=== PATIENT | male | born 1995 | race Caucasian/White ===

== ENCOUNTER 2024-01-04 09:07 | Emergency (ER) | payer MEDICAID, SELFPAY ==
--- NOTE | ~2024-01-04 | XR_ITS ---
EXAMINATION: XR CHEST CLINICAL INFORMATION: Chest pain COMPARISON: 06/13/2018 TECHNIQUE: Frontal view of the chest was obtained. FINDINGS: No significant abnormality is noted involving the heart, lungs, mediastinum, bony thorax or soft tissues. XR/XR chest 1V IMPRESSION: Unremarkable examination.
[2024-01-04 09:21] VITALS: BP 145/89; PULSE 63; RESP 18; TEMP 36.9; O2SAT 100; BMI 29.7
--- NOTE | 2024-01-04 09:26 | ECG_ITS ---
Test Reason : CHEST PAIN Blood Pressure : / mmHG Vent. Rate : 059 BPM Atrial Rate : 059 BPM P-R Int : 138 ms QRS Dur : 088 ms QT Int : 366 ms P-R-T Axes : 073 013 056 degrees QTc Int : 362 ms Sinus bradycardia Otherwise normal ECG No previous ECGs available Referred By: Generic ED Physician Electronically Signed By:LASHA ABEBE MD
[2024-01-04 09:44] LABS: MANUAL DIFF FLAG NO
[2024-01-04 09:47] LABS: Basophils Percent Auto 0.2 % (0-2); Eosinophils Percent Auto 0.3 % (0-4); Hematocrit 40.1 % (42.0-52.0); Hemoglobin 13.7 g/dl (14.0-18.0); Imm Gran Abs Auto 0.06 X10*3/uL (0.00-0.03); Imm Gran Pct Auto 0.4 % (0.0-0.4); Lymphocytes Absolute Auto 1.3 X10*3/uL (1.2-4.9); Lymphocytes Percent Auto 9.2 % (20-40); Mean Corpuscular HGB Conc 34.2 g/dl (31.0-36.0); Mean Corpuscular Hemoglobin 28.6 pg (27.0-33.0); Mean Corpuscular Volume 83.7 fL (80.0-98.0); Mean Platelet Volume 9.5 fL (9.4-12.4); Monocytes Absolute Auto 0.5 X10*3/uL (0.1-1.2); Monocytes Percent Auto 3.5 % (2-11); Neutrophils Absolute Auto 12.4 x10*3/uL (2.0-8.3); Neutrophils Percent Auto 86.4 % (45-73); Platelet Count 338 X10*3/uL (160-400); Red Blood Count 4.79 X10*6/uL (4.60-5.80); White Blood Count 14.4 X10*3/uL (4.8-10.8)
--- NOTE | 2024-01-04 09:48 | ED.GENADULT ---
HPI - General Adult General Chief complaint: General Medical Stated complaint: Carbon Monoxide poisoning? Vomiting dizzy Time Seen by Provider: 01/04/24 09:40 Source: patient Mode of arrival: ambulatory Limitations: no limitations History of Present Illness HPI narrative: 28 year old male with no significant past medical history presents to the emergency department, with his family, for complaints of n/v/d and fatigue for the past several days. He reports that on Wednesday he changed out the exhaust in his car in his concern that he may have carbon monoxide poisoning. He reports he was seen for similar symptoms N/V/D, dizziness, and weakness at [facility] and was given antiemetics, IV fluids and tested negative for COVID/flu/RSV. He reports he was given a prescription for Reglan but then he has had continued symptoms. 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 He also reports intermittent shortness of breath on a sharp pain in the left chest. He denies any fevers, chills, hematemesis, melena, BRBPR Patient reports he is a daily marijuana smoker and states that he smoked twice yesterday. Pertinent positives and negatives discussed in HPI Related Data Previous Rx's ?Medication ?Instructions ?Recorded ondansetron 4 mg disintegrating 4 mg PO Q8H #20 tabs 01/04/24 tablet Allergies Allergy/AdvReac Type Severity Reaction Status Date / Time No Known Allergies Allergy Verified 01/04/24 09:25 Review of Systems Review of Systems: Yes all other systems are reviewed and are negative [facility] Social History Social History Advance Directives: No Advance Directives Information Provided: Yes Physical Exam ED Vital Signs: Vital Signs - 24 hr 01/04/24 09:21 Temperature 98.4 F Pulse Rate 63 Respiratory Rate 18 Blood Pressure 145/89 H Pulse Oximetry 100 Oxygen Delivery Method Room Air BMI result Body Mass Index 29.7 Nursing notes and vital signs reviewed. GENERAL APPEARANCE: A&0 x 4, generally well appearing, no acute distress HENMT: Normal to inspection, atraumatic, face symmetrical. Normal external ears, nose, and oropharynx clear. EYE: PERRLA, EOM intact, structures appear normal NECK: Supple without lymphadenopathy. No stiffness or restricted ROM. CHEST: Normal to inspection HEART: Normal rate and regular rhythm, normal S1/S2, no M/R/G LUNGS: LS CTA, moving air well. Able to speak in complete sentences. No crackles, wheezes, or rhonchi auscultated ABDOMEN: Soft, nontender, nondistended. Normal bowel sounds noted BACK: No CVAT, no obvious deformity EXTREMITIES: Moving all extremities without difficulty. No cyanosis, clubbing, or edema. Normal capillary refill. NEUROLOGICAL: Alert and oriented, moving all 4 extremities with equal strength. CN not formally tested but appearing grossly intact. Observed to ambulate with normal gait. Cognition normal SKIN: Warm and dry without any lesions, rash, or visible sores PSYCH: Cooperative, normal affect, normal thought process Medications Administered Generic Name Dose Route Start Last Admin Trade Name Freq PRN Reason Stop Dose Admin Sodium Chloride 1,000 mls @ 999 mls/hr 01/04/24 10:00 01/04/24 10:00 Ns IV 01/04/24 11:00 999 mls/hr .Q1H1M AMRY Administration Discontinued Medications Generic Name Dose Route Start Last Admin Trade Name Freq PRN Reason Stop Dose Admin Ondansetron HCl 4 mg 01/04/24 10:42 01/04/24 10:50 Ondansetron Hcl 4 Mg/2 Ml Vial IVPUSH 01/04/24 10:43 4 mg ONCE ONE Administration Potassium Chloride 40 meq 01/04/24 10:42 01/04/24 10:51 Potassium Chloride Er 20 Meq Tab.Er.Prt PO 01/04/24 10:43 40 meq ONCE ONE Administration Medical Decision Making Medical Decision Making MDM Narrative: Old records reviewed for previous imaging, lab studies, ECGs, and notes. Patient was assessed the emergency department with no acute distress or toxicity noted. EKG unremarkable for STEMI and chest x-ray showing no evidence of acute findings, per my interpretation. Carbon monoxide level 1.9, consistent with a chronic smoker. Remaining blood work showing hypokalemia consistent complaints of vomiting and diarrhea, unspecified anemia, and leukocytosis with WBCs 14.4 and nasal serology negative for COVID, flu, and RSV. Patient's symptoms are consistent with acute viral syndrome. Potassium replacement and IV fluid bolus given here in the emergency department for management of symptoms and patient educated to increase fluid intake to prevent dehydration. Zofran sent to patient's preferred pharmacy for further management nausea and vomiting. Patient reports that he is lactose intolerant, however; that he has been drinking milk daily. Patient educated that having dairy while being sensitive to lactose may cause increased GI symptoms. Patient educated to have his car assessed for carbon monoxide leakage from the exhaust. Old records reviewed for previous imaging, lab studies, ECGs, and notes. Patient was assessed the emergency department with no acute distress or toxicity noted. Differential Diagnosis Differential Diagnoses: The differential diagnosis associated with the presentation includes But not limited to carbon monoxide poisoning, asthma, ACS, PE, pneumonia, gastroenteritis, acute viral syndrome, GI bleed, sepsis, malignancy Lab Data MDM Lab Attestation statement: I reviewed the patient's lab results. 01/04/24 09:40 01/04/24 09:40 Labs: Lab Results 01/04/24 01/04/24 01/04/24 Range/Units 09:37 09:40 09:42 WBC 14.4 H (4.8-10.8) X10*3/uL RBC 4.79 (4.60-5.80) X10*6/uL Hgb 13.7 L (14.0-18.0) g/dl Hct 40.1 L (42.0-52.0) % MCV 83.7 (80.0-98.0) fL MCH 28.6 (27.0-33.0) pg MCHC 34.2 (31.0-36.0) g/dl RDW 13.0 (11.0-16.0) % Plt Count 338 (160-400) X10*3/uL MPV 9.5 (9.4-12.4) fL Immature Gran % (Auto) 0.4 (0.0-0.4) % Neut % (Auto) 86.4 H (45-73) % Lymph % (Auto) 9.2 L (20-40) % [place] % (Auto) 3.5 (2-11) % Eos % (Auto) 0.3 (0-4) % Baso % (Auto) 0.2 (0-2) % Lymph # (Auto) 1.3 (1.2-4.9) X10*3/uL [place] # (Auto) 0.5 (0.1-1.2) X10*3/uL Eos # (Auto) 0.0 (0.0-0.4) X10*3/uL Baso # (Auto) 0.0 (0.0-0.2) X10*3/uL Abs Immat Gran (auto) 0.06 H (0.00-0.03) X10*3/uL Absolute Neuts (auto) 12.4 H (2.0-8.3) x10*3/uL Absolute Nucleated RBC 0.000 (0.0-0.012) X10*3/uL Nucleated RBC % (auto) 0.0 (0.0-0.2) /100WBC Carboxyhemoglobin % Cancelled 1.9 Sodium 141 (135-145) mmol/L Potassium 3.2 L (3.3-5.1) mmol/L Chloride 106 (96-108) mmol/L Carbon Dioxide 23 (22-29) mmol/L Anion Gap 15 (12-20) BUN 9 (9-16) mg/dL Creatinine 0.81 (0.5-1.4) mg/dL Estim Creat Clear Calc 150.2 Estimated GFR > 60 Random Glucose 116 H (60-115) mg/dL Calcium 9.2 (8.4-10.2) mg/dL Total Bilirubin 0.6 (0.0-1.0) mg/dL AST 16 (5-37) U/L ALT 13 (0-40) U/L Alkaline Phosphatase 75 (39-117) U/L Total Protein 7.6 (6.5-8.0) g/dL Albumin 4.3 (3.5-5.0) g/dL Influenza Type A (PCR) (Negative) Influenza Type B (PCR) (Negative) RSV RNA Qual (PCR) (Negative) SARS-CoV-2 RNA (RT-PCR) (Negative) 01/04/24 Range/Units 09:58 WBC (4.8-10.8) X10*3/uL RBC (4.60-5.80) X10*6/uL Hgb (14.0-18.0) g/dl Hct (42.0-52.0) % MCV (80.0-98.0) fL MCH (27.0-33.0) pg MCHC (31.0-36.0) g/dl RDW (11.0-16.0) % Plt Count (160-400) X10*3/uL MPV (9.4-12.4) fL Immature Gran % (Auto) (0.0-0.4) % Neut % (Auto) (45-73) % Lymph % (Auto) (20-40) % [place] % (Auto) (2-11) % Eos % (Auto) (0-4) % Baso % (Auto) (0-2) % Lymph # (Auto) (1.2-4.9) X10*3/uL [place] # (Auto) (0.1-1.2) X10*3/uL Eos # (Auto) (0.0-0.4) X10*3/uL Baso # (Auto) (0.0-0.2) X10*3/uL Abs Immat Gran (auto) (0.00-0.03) X10*3/uL Absolute Neuts (auto) (2.0-8.3) x10*3/uL Absolute Nucleated RBC (0.0-0.012) X10*3/uL Nucleated RBC % (auto) (0.0-0.2) /100WBC Carboxyhemoglobin % Sodium (135-145) mmol/L Potassium (3.3-5.1) mmol/L Chloride (96-108) mmol/L Carbon Dioxide (22-29) mmol/L Anion Gap (12-20) BUN (9-16) mg/dL Creatinine (0.5-1.4) mg/dL Estim Creat Clear Calc Estimated GFR Random Glucose (60-115) mg/dL Calcium (8.4-10.2) mg/dL Total Bilirubin (0.0-1.0) mg/dL AST (5-37) U/L ALT (0-40) U/L Alkaline Phosphatase (39-117) U/L Total Protein (6.5-8.0) g/dL Albumin (3.5-5.0) g/dL Influenza Type A (PCR) NEGATIVE (Negative) Influenza Type B (PCR) NEGATIVE (Negative) RSV RNA Qual (PCR) NEGATIVE (Negative) SARS-CoV-2 RNA (RT-PCR) NEGATIVE (Negative) Independent Interpretation I performed an independent interpretation of an: EKG and Plain X-Ray Interpretation: I have independently interpreted the patient's chest x-ray is negative for acute findings. I have also independently interpreted the patient's EKG showing sinus bradycardia with no signs of acute ischemia or ectopy. Independent Historian Clinical information obtained from an independent historian. History obtained from or confirmed by: Other (Family) External Record Review External record reviewed: Outpatient record and Prior outpatient labs Prescription Management I considered prescription management with: Antibiotic Were considered but no bacterial infection was identified. Discharge Plan Discharge Clinical Impression: Marijuana smoker, Acute viral syndrome, Acute hypokalemia, Anemia, unspecified Patient Disposition: Home, Self-Care Instructions: How to Stop Smoking (ED), Hypokalemia (ED), Viral Syndrome (ED), Anemia (ED) Additional Instructions: Your seen in the emergency department for concerns of carbon monoxide poisoning. Your carbon monixide level was consistent with chronic marijuana smoker and showed no evidence of CO poisoning. Your symptoms are consistent with an acute viral syndrome. It is recommended that you increase your fluid intake to prevent dehydration and nausea medicine was sent to preferred pharmacy for further management your symptoms. Is also recommended that you have your car assessed for carbon monoxide leakage from the exhaust. You are safe for discharge at this time with plan for management of fever or discomfort with [id number] Tylenol and/or NSAID such as ibuprofen or naproxen with dosing as per packaging. Please return to the emergency department with new, worsening, or concerning emergent symptoms. Recommended to follow-up with your primary care provider in 24-48 hours for further treatment and management. Thank you for choosing [facility]. Prescriptions: New ondansetron 4 mg tablet,disintegrating 4 mg PO Q8H Qty: 20 0RF [place] [facility] [place]] [facility] [place] [facility] [place] Group] [facility] [place] [facility] [place] Group] Stand Alone Forms: Work/School Release Print Language: Upper Sorbian
[2024-01-04 09:49] LABS: Carbon Monoxide Refer to POC result
[2024-01-04 09:50] LABS: Carbon Monoxide POC 1.9 %
[2024-01-04] MEDS: 0.9 % Sodium Chloride 1,000 ML 999 ML IV (10:00)
[2024-01-04 10:03] LABS: Alanine Aminotransferase 13 U/L (0-40); Albumin Level 4.3 g/dL (3.5-5.0); Alkaline Phosphatase 75 U/L (39-117); Anion Gap 15 (12-20); Aspartate Amino Transferase 16 U/L (5-37); Bilirubin Total 0.6 mg/dL (0.0-1.0); Blood Urea Nitrogen 9 mg/dL (9-16); Calcium 9.2 mg/dL (8.4-10.2); Carbon Dioxide 23 mmol/L (22-29); Chloride 106 mmol/L (96-108); Creatinine Clr Calc Pharmacy 150.2; Estimated Glomerular Filt Rate > 60; Glucose Random 116 mg/dL (60-115); Potassium 3.2 mmol/L (3.3-5.1); Sodium 141 mmol/L (135-145); Total Protein 7.6 g/dL (6.5-8.0)
[2024-01-04 10:46] LABS: Influenza A PCR NEGATIVE (Negative); Influenza B PCR NEGATIVE (Negative); Resp Syncy Virus RNA Qual PCR NEGATIVE (Negative); SARS COV2 PCR INHOUSE NEGATIVE (Negative)
[2024-01-04] MEDS: ondansetron HCL 4 MG/2 ML VIAL IVPUSH (10:50)
[2024-01-04] MEDS: Potassium Chloride ER 20 MEQ TAB.ER.PRT 40 MEQ PO (10:51)
[2024-01-04 11:30] VITALS: BP 142/77; PULSE 57; RESP 16; TEMP 37.1; O2SAT 99
== END 2024-01-04 11:31 | disposition home or self-care (01) ==
PROVIDERS: Nurse Practitioner Family; Emergency Provider Emergency Medicine
DX: F12.90 Cannabis use, unspecified, uncomplicated (principal); B34.9 Viral infection, unspecified; E87.6 Hypokalemia; D64.9 Anemia, unspecified; Z11.52 Encounter for screening for COVID-19; Z20.828 Contact with and (suspected) exposure to other viral communicable diseases
CPT/HCPCS: 0241U; 36415; 71045; 80053; 82375; 85025; 93005; 96361; 96374; 99283; 99284; J2405

== ENCOUNTER → 2024-01-04 09:26 | Outpatient (BNV) | payer MEDICAID, SELFPAY | PROVIDERS: Emergency Provider Emergency Medicine; Visit Provider Internal Medicine Cardiovascular Disease | DX: R00.1 Bradycardia, unspecified (principal) | CPT/HCPCS: 93010 ==

== ENCOUNTER 2024-06-09 08:50 | Outpatient (REF) | payer MEDICAID, SELFPAY ==
[2024-06-09 12:16] LABS: Alanine Aminotransferase 17 U/L (0-40); Albumin Level 4.6 g/dL (3.5-5.0); Alkaline Phosphatase 72 U/L (39-117); Anion Gap 12 (12-20); Aspartate Amino Transferase 20 U/L (5-37); Blood Urea Nitrogen 11 mg/dL (9-16); Carbon Dioxide 25 mmol/L (22-29); Chloride 107 mmol/L (96-108); Cholesterol 147 mg/dL (<200); Estimated Glomerular Filt Rate > 60; Glucose Random 106 mg/dL (60-115); HDL Cholesterol 37 mg/dL (>40); LDL Cholesterol Calculated 84 mg/dL (<100); Potassium 3.8 mmol/L (3.3-5.1); Sodium 140 mmol/L (135-145); Total Protein 8.2 g/dL (6.5-8.0); Triglycerides 133 mg/dL (<150)
[2024-06-09 12:26] LABS: Estimated Average Glucose 100 mg/dL; Hemoglobin A1c % 5.1 % (<6.0)
[2024-06-09 13:12] LABS: CT PCR NOT DETECTED (Not Detect.); NG PCR NOT DETECTED (Not Detect.)
[2024-06-10 04:46] LABS: HIV AB/AG Nonreactive (Nonreactive); HIV Num 1 0.07 S/CO (0.00-0.99); ~HepC Num1 0.15 S/CO (0.00-0.79); ~Hepatitis C Antibody Nonreactive (Nonreactive)
[2024-06-12 11:39] LABS: RPR Rapid Plasma Reagin NON-REACTIVE (NON-REACTIVE)
== END 2024-06-09 08:51 | disposition home or self-care (01) ==
LOC: HO.HHCL 08:50
PROVIDERS: Visit Provider Nurse Practitioner Family
DX: Z00.00 Encounter for general adult medical examination without abnormal findings (principal); R79.89 Other specified abnormal findings of blood chemistry
CPT/HCPCS: 36415; 80053; 80061; 83036; 86592; 86803; 87389; 87491; 87591

== ENCOUNTER 2024-11-14 10:42 | Outpatient (AMB) | payer MEDICAID, SELFPAY ==
--- NOTE | 2024-11-14 10:43 | MHC.OFFVIS ---
Intake Visit Reasons: pilonodial cyst Intake Note: Patient referred by Linnette Oneill STOGY ROLLER for reocurring pilonidal cyst. First noticed last summer. Prior txt include abx's. Patient c/o: oozing, tender to touch. Assessment Nurse Practitioner Required: No Accompanied by: Self / Same As Patient Allergies No Known Allergies Allergy (Verified 11/14/24 10:46) HPI Comments Details: Patient presents with 1. 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 Right upper back soft tissue mass. 1. Pilonidal cyst has been very symptomatic and the patient was required I and D twice by the ER. He would like to have this excised. 2. Patient was a right upper back soft tissue mass which has markedly increased in size and also become more symptomatic he would like to have this removed as well. Chart was reviewed and patient evaluated [facility] Medical History (Updated 11/14/24 @ 10:47 by DARNELL Oliveira) Appendix abscess Social History (Updated 11/14/24 @ 10:47 by DARNELL Oliveira) Alcohol intake: never Patient Tobacco Use Status: Never used Tobacco Physical Exam Chest Other: Chest breath sounds bilaterally, HS 1 in 2 GI Other: Abdomen is soft, benign Back/Spine/Pelvis Other: Right upper back demonstrates a 8 5 cm mass consistent with a large sebaceous cyst (less likely lipoma). Stewart cleft area demonstrates significant scarring and sinuses and induration consistent with prior episodes of symptomatic infected pilonidal cyst disease. Assessment & Plan Assessment & Plan (1) Pilonidal cyst of stewart cleft: Code(s): L05.91 - Pilonidal cyst without abscess Category: Surgical (2) Sebaceous cyst: Code(s): L72.3 - Sebaceous cyst Category: Surgical Plan Risks, benefits, alternatives of 1. Pilonidal cyst excision 2. Right upper back cyst excision were reviewed with the patient and included but not limited to bleeding, infection, recurrence, numbness, pain, scarring, wound dehiscence, seroma formation the patient wished to proceed. I explained to him that he needs to be sedentary post pilonidal cyst excision in particular to avoid any significant wound issues. He understands. Arrangements were made for this on a day which is convenient for him. All questions answered. Coding Level of Care Code New Pt Level 5 (53352) Diagnoses Pilonidal cyst of cleft L05.91 Sebaceous cyst L72.3
--- OUTSIDE RECORDS SUMMARY | 2024-11-14 13:03 | XMS_ITS | Clinical Summary ---
Author Organization [facility] ity Address [address] [place] [address] Care Team Providers Care Keno Dealer Name Role Phone Unavailable Primary Care Provider Unavailabl e Social History Tobacco Use Types Packs/Day Years Used Date Smoking Tobacco: Never Assessed Sex and Gender Information Value Date Recorded Sex Assigned at Not on file Legal Sex Male 9:03 AM EST Gender Identity Not on file Sexual Orientation Not on file Plan of Treatment Health Maintenance Due Date Last Done Comments DTaP,Tdap,and Td Vaccines (1 - Tdap) 2013 Hepatitis B Vaccines (1 of 3 - 19+ 3-dose series) 2013 Depression Screening 10/12/2023 HIV Screening 10/12/2023 Hepatitis C Screening 10/12/2023 Social Influencers of Health Screening 10/12/2023 COVID-19 Vaccine (1 - 2023-2 5 season) 2024 Influenza Vaccine (#1) 2024 HIB Vaccines Aged Out No longer eligi ble based on patient's age to complete this topic HPV Vaccines Aged Out No longer eligi ble based on patient's age to complete this topic Hepatitis A Vaccines Aged Out No long er eligible based on patient's age to complete this topic IPV Vaccines Aged Out No longer eligi ble based on patient's age to complete this topic MMR Vaccines Aged Out No longer eligi ble based on patient's age to complete this topic Meningococcal ACWY Vaccine Aged Out N o longer eligible based on patient's age to complete this topic Meningococcal B Vacine Aged Out No lo nger eligible based on patient's age to complete this topic Pneumococcal Vaccine: Pediat rics (0 to 5 Years) and At-Risk Patients (6 to 64 Years) Aged Out No longer eligible b ased on patient's age to complete this topic RSV Immunization Patients Un carol 20 months Aged Out No longer eligible b ased on patient's age to complete this topic Varicella Vaccines Aged Out No longer eligible based on patient's age to complete this topic
--- OUTSIDE RECORDS SUMMARY | 2024-11-14 13:03 | XMS_ITS | Encounter Summary ---
Author Organization [employer] Address [address] [place] [address] Care Team Providers Care Issuing Operator Name Role Phone Linnette Oneill POULTRY HUSBANDRY TEACHER Primary Care Provider [phone] Reason for Visit * Reason Onset Date Comments Nurse Triage 11/08/2024 Encounter Details Date Type Department Care Team ([facility] st Contact Info) Description 11/08/2024 Telephone [facility] [address], [place] [phone] Linnette Oneill NP [address] [place] [address] Nurse Triage Social History Tobacco Use Types Packs/Day Years Used Date Smoking Tobacco: Never Smokeless Tobacco: Never Alcohol Use Standard Drinks/Week Comments Never 0 (1 standard drink = 0.6 oz pur e alcohol) Alcohol Answer Date Recorded Frequency of Alcohol Consumption Not on file 05/29/2024 Average Number of Drinks Not on file 024 Frequency of Binge Drinking Not on file 05/14 Score 0 05/29/2024 Depression Answer Date Recorded Patient Health Questionnaire-9 Score 4 05/29/2024 Patient Health Questionnaire-9 Score 4 05/29/2024 Last PHQ-9: Questionnaire Data Not on file 0 05/29/2024 Housing Stability Answer Date Recorded What is your housing situation today? I have carlos trejo 05/29/[address] you li ve. Do you have problems with any of the following? None of the above 05/29/2024 Food Insecurity Answer Date Recorded Within the past 12 months, y ou worried that your food would run out before you got money to buy more: Never True 05/29/2024 Within the past 12 months,th e food you bought just didn't last and you didn't have enough money to get more: Never True Transportation Answer Date Recorded In the past 12 months, has l ack of transportation kept you from medical appts, meetings, work or from getting things needed for daily living? No 05/29/2024 Utilities Answer Date Recorded In the past 12 months, has t he electric, gas, oil or water company threatened to shut off services in your home? No 05/29/2024 Depression Answer Date Recorded Patient Health Questionnaire-2 Score 0 05/29/2024 Internet Access Answer Date Recorded Internet Access Q1 Yes 05/29/2024 Internet Access Q2 Not on file 05/29/2024 Sex and Gender Information Value Date Recorded Sex Assigned at Male 07/13/2022 10:14 AM EDT Legal Sex Male 10:14 AM EDT Gender Identity Male 07/13/2022 10:14 AM EDT Sexual Orientation Straight 09/04/2024 4: 47 PM EST documented as of this encounter Miscellaneous Notes * Telephone Encounter - Meg Sharma RN - 11/08/2024 1:27 PM EST Triage call Pt reports a recurring pilonidal cyst near coccyx area which needs to be surgically removed. Pt has had this drained before at [facility] [place] and has been told to contact PCP for referral for surgical removal. Pt reports the cyst is size of a golf ball, hard to the touch and painful. Last time this was drained was before May of 2024. ASK apt with [facility] at 1145am 11/10/24. Pt agrees with disposition. Insurance is verified as active prior to booking. Protocol Used: Skin Lump or Localized Swelling (Adult) Protocol-Based Disposition: See in Office or Video Visit within 3 Days Video visit not offered Positive Triage Questions: * Small swelling or lump present > 1 week * Patient wants to be seen * All higher-acuity triage questions were negative Care Advice Discussed: * Reasons To Call Back - Fever occurs - Spreading redness occurs - Swelling becomes painful - Swelling lasts over 1 week - You become worse * Telephone Encounter - Lisa Cordova - 11/08/2024 12:58 PM EST Symptom: Back Pain - Not From Injury Outcome: Talk to a nurse or provider within 15 minutes Reason: Can't walk (unless normally can't walk) Pt states hurts when he sits down, can't walk well, can't lie down and can't bend over. The caller accepted this outcome. [phone] documented in this encounter Plan of Treatment Not on file documented as of this encounter Visit Diagnoses Not on filedocumented in this encounter Additional Health Concerns Assessment Noted Time PHQ-9 Depression Total Score: 4 05/29/20 24 10:05 AM EDT documented as of this encounter Care Teams Issuing Operator Relationship Specialty Start Date End Date Linnette Oneill NP [address] [place] [id number] PCP - General Family Medicine 05/29/24 documented as of this encounter
--- OUTSIDE RECORDS SUMMARY | 2024-11-14 13:03 | XMS_ITS | Encounter Summary ---
Author Organization [facility] Address [address] [place] [address] Care Team Providers Care Supervisor Salvage Name Role Phone Linnette Oneill AMMON Primary Care Provider [phone] Encounter Details Date Type Department Care Team (Late st Contact Info) Description 10/24/2024 3:15 PM EST Office Visit [facility] [address] [place], [place] [id number] Navid, Lucia, OD [address] [place] [address] Regular astigmatism of both eyes (Primary Dx) Social History Tobacco Use Types Packs/Day Years [...] your housing situation today? I have carlos maya 05/29/[address] you li [...] PM EST documented as of this encounter Progress Notes * Lucia Shoemaker OD - 10/24/2024 3:15 PM EST MH glasses were dispensed. documented in this encounter Plan of Treatment Not on file documented as of this encounter Visit Diagnoses Diagnosis Regular astigmatism of both eyes- Primary documented in this encounter Additional Health Concerns Assessment Noted Time PHQ-9 Depression Total Score: 4 05/29/20 24 10:05 AM EDT documented as of this encounter Care Teams Supervisor Salvage Relationship Specialty Start Date End Date Linnette Oneill NP [address] [place] [id number] PCP - General Family Medicine 05/29/24 documented as of this encounter
--- OUTSIDE RECORDS SUMMARY | 2024-11-14 13:03 | XMS_ITS | Clinical Summary ---
Author Organization [employer] [facility] Address [address] [facility] [address] [facility] [address] [place] [address] Care Team Providers Care Retail Custodial Associate Name Role Phone Linnette Oneill PROJECT BUYER Primary Care Provider [phone] Allergies No known active allergies Medications No known medications Active Problems Problem Noted Date Diagnosed Date Elevated liver function tests 05/29/2024 Assessment & Plan (05/29/2024 5:30 PM EDT): Elevated liver function in setting of acute GI illness, repeat lab Pt reports imaging was completed and echogenic liver Healthcare maintenance 05/29/2024 Assessment & Plan (05/29/2024 5:30 PM EDT): Anticipatory guidance reviewed, labs as ordered below Pilonidal cyst 05/29/2024 Assessment & Plan (05/29/2024 5:30 PM EDT): Reports has become infected twice, interested in removal, referral to surgery Encounters Date Type Department Care Team Description 11/10/2024 Telephone [facility] MEDICINE [address] [place] [address] Linnette Oneill NP Care Coordination 11/08/2024 Telephone [facility] MEDICINE [address] [place] [address] Linnette Oneill NP Nurse Triage 10/24/2024 3:15 PM EST Office Visit [facility] OPTOMETRY [address] [place] [address] NavidLucia vega, OD Regular astigmatism of both eyes (Primary Dx) 09/11/2024 9:45 AM EST Office Visit [facility] OPTOMETRY [address] [place] [address] Sanjuana Alvarez, OD Regular astigmatism of both eyes (Primary Dx); Refractive amblyopia of right eye 09/11/2024 Travel from Last 3 Months Immunizations Name Administration Dates Next Due DTaP 07/23/1998, 6,1994,07/24,1994 Hep A, ped/adol, 2 dose 2011 Hep B, Adolescent or Pediatric 1994,1993,1994 Hib (HbOC) 09/17/1995, 5,1994,06/02 IPV 09/17/1995, 5,1994,06/02 Influenza injectable quadriv alent IIV4 with preservative 08/08/2018 MMR 07/23/1998,02/26/1995 Meningococcal MCV4P ACYW-135 12/31/2005 Td (adult), 5 Lf tetanus tox oid, preservative free, adsorbed 02/18/2013 Tdap 12/10/2022,12/31/2005 Varicella 2011 Family History Medical History Relation Name Comments Glaucoma Brother Relation Name Status Comments Brother Social History Tobacco Use Types Packs/Day Years Used Date Smoking Tobacco: Never Smokeless Tobacco: Never Tobacco Cessation:Counseling Given: Not Answered Alcohol Use Standard Drinks/Week Comments Never 0 [...] Orientation Straight 09/04/2024 4: 47 PM EST Last Filed Vital Signs Vital Sign Reading Time Taken Comments Blood Pressure 114/72 05/29/2024 10:02 AM EDT Pulse 75 05/29/2024 10:02 AM EDT Temperature 36.9 ??C (98.4 ??F) 05/29/2024 10:02 AM E DT Respiratory Rate 16 05/29/2024 10:02 AM EDT Oxygen Saturation - - Inhaled Oxygen Concentration - - Weight 94 kg (207 lb 3.2 oz) 05/29/2024 10:02 AM EDT Height 173.8 cm (5' 8.43 ) 05/29/2024 10:02 AM E DT Body Mass Index 31.11 05/29/2024 10:02 AM EDT Plan of Treatment Health Maintenance Due Date Last Done Comments Family Planning (PISQ) 2009 Hepatitis A Vaccines (2 of 2 - Risk 2-dose series) 08/27/2011 2011 COVID-19 Vaccine ( season) 2024 Influenza Vaccine (#1) 2024 08/08/2018 Alcohol/Substance Use Screening 05/29/2025 05/29/2024 Depression Screening 05/29/2025 05/29/2024, 05/29/20 24 SDOH Screening 05/29/2025 05/29/2024 Tobacco Screening 09/11/2025 09/11/2024 DTaP/Tdap/Td Vaccines (9 - Td or Tdap) 12/10/2032 12/10/2022, 02/18/2013, 12/31/2005, Additional history exists Zoster Vaccines (1 of 2) 02/26/2044 RSV Patients and Patients Aged 60 years or older (1 - 1-dose 75+ series) 2069 Hepatitis B Vaccines Completed 1994, 1994, 1994 HIB Vaccines Completed 09/17/1995, 09/13, 1994, Additional history exists IPV Vaccines Completed 09/17/1995, 09/13, 1994, Additional history exists Meningococcal Vaccine Aged Out 12/31/2005 No sandra terence eligible based on patient's age to complete this topic HIV Screening Completed 06/09/2024 Hepatitis C Screening Completed 06/09/2024 HPV Vaccines Aged Out No longer eligi ble based on patient's age to complete this topic Pneumococcal Vaccine: Pediatrics (0 to 5 Years) and At-Risk Patients (6 to 49) Years) Aged Out No longer eligible based on patient's age to complete this topic RSV under 20 months Aged Out No longe r eligible based on patient's age to complete this topic Rotavirus Vaccines Aged Out No longer eligible based on patient's age to complete this topic Procedures Procedure Name Priority Date/Time Associated Diagnosis Comments HEPATITIS C AB W/REFL TO HCV RNA, QN, PCR Routine 06/09/2024 8:56 AM EDT Healthcare maintenance HIV 1/2 ANTIGEN/ANTIBODY, FOURTH GENERATION W/RFL Routine 06/09/2024 8:56 AM EDT Healthcare maintenance from Last 3 Months or Most Recently Relevant to Health Maintenance Results * Hepatitis C Antibody with Reflex to HCV, RNA, Quantitative, Real-Time PCR (06/09/2024 8:56 AM EDT) Hepatitis C Antibody Nonreactive Nonreactive [facility] Comment:Antibodies to HCV no t detected; does not exclude early acuteHCV infection. Blood Venous blood specimen / Unknown 06/09/2024 8:56 AM EDT 06/09/2024 11:22 AM EDT us Linnette Oneill NP LAB BLOOD ORDERABLES Final Resul t Performing Organization Address [facility] Co de Phone Number [facility] [address] [place] [address] [phone] * HIV-1/2 Antigen and Antibodies, Fourth Generation, with Reflexes (06/09/2024 8:56 AM EDT) [facility] HIV AB/AG Nonreactive Nonreactive [facility] Comment:HIV-1 p24 Ag and/or HIV-1/HIV-2 Ab not detected.A test result that is nonreactive does not exclude thepossibility of exposure to or infection with HIV-1 and/orHIV-2. Nonreactive results in this assay for individualswith prior exposure to HIV-1 and/or HIV-2 may be due toantigen and antibody levels that are below the limit ofdetection of this assay.The [employer] HIV Ag/Ab Combo assay result andsupplemental assay results should be interpreted inconjunction with the patient's clinical presentation,history and other laboratory results. If the results areinconsistent with clinical evidence, additional testing issuggested to confirm the result. Blood Venous blood specimen / Unknown 06/09/2024 8:56 AM EDT 06/09/2024 11:22 AM EDT us Linnette Oneill NP LAB BLOOD ORDERABLES Final Resul t Performing Organization Address City/[facility]/ZIP Co de Phone Number [facility] [address] [place] [address] [phone] from Last 3 Months or Most Recently Relevant to Health Maintenance Insurance [facility] C3 HSN FULL Care Teams Retail Custodial Associate Relationship Specialty Start Date End Date Linnette Oneill NP [address] [place] [phone] PCP - General Family Medicine 05/29/24
--- OUTSIDE RECORDS SUMMARY | 2024-11-14 13:03 | XMS_ITS | Encounter Summary ---
Author Organization [employer] Address [address] [facility] 7t [place] [address] Care Team Providers Care Battery Container Tester Aluminum Name Role Phone Linnette Oneill LEGAL CLERK Primary Care Provider [phone] Reason for Visit * Reason Onset Date Comments Care Coordination 11/10/2024 Encounter Details Date Type Department Care Team ([facility] st Contact Info) Description 11/10/2024 Telephone [facility] MEDICINE [address] [place], [place] [phone] Linnette Oneill NP [address] [place], [place] [phone] Care Coordination Social History Tobacco Use Types Packs/Day Years [...] encounter Miscellaneous Notes * Telephone Encounter - Steff Mims RN - 11/10/2024 10:18 AM EST Contacted by [facility] CAB DRIVER regarding sick onsite appt booked with her for today. Pt already has pending referral to General surgery for the pilonidal cyst on coccyx. Requested that this caller contact pt and inform of this information, and if pt is to need an I&D to seek WIC instead as visit length not enough time to perform I&D. Call to Herrera Trujillo and advised of above. Given contact for Office of [facility] General Surgery [phone]. Given Authorization # [id number] . Pt advised that if they are not able to see patient today to seek WIC. Pt states area was inflamed and drained on own but stil having some mild pain and redness. Pt advised of walk in center hours for today. Pt agrees. Protocol Used: Skin Lump or Localized Swelling (Adult) Protocol-Based Disposition: See in Office or Video Visit Today Video visit offer not recorded Positive Triage Question: * Looks like a boil, infected sore, deep ulcer or other infected rash * All higher-acuity triage questions were negative Care Advice Discussed: * Reasons To Call Back - Fever occurs - Spreading redness occurs - Swelling becomes painful - You become worse documented in this encounter Plan of Treatment Not on file documented as of this encounter Visit Diagnoses Not on filedocumented in this encounter Additional Health Concerns Assessment Noted Time PHQ-9 Depression Total Score: 4 05/29/20 24 10:05 AM EDT documented as of this encounter Care Teams Battery Container Tester Aluminum Relationship Specialty Start Date End Date Linnette Oneill NP [address] [place] [phone] PCP - General Family Medicine 05/29/24 documented as of this encounter
== END 2024-11-14 10:56 | disposition home or self-care (01) ==
PROVIDERS: PCP Internal Medicine Geriatric Medicine; Visit Provider Surgery
DX: L05.91 Pilonidal cyst without abscess (principal); L72.3 Sebaceous cyst
CPT/HCPCS: 99204

== ENCOUNTER → 2024-11-14 10:42 | Outpatient (BNVA) | payer MEDICAID, SELFPAY | PROVIDERS: PCP Internal Medicine Geriatric Medicine; Visit Provider Surgery | DX: L05.91 Pilonidal cyst without abscess (principal); L72.3 Sebaceous cyst | CPT/HCPCS: 99202 ==

== ENCOUNTER 2024-12-15 08:25 | Day surgery (SDC) | payer MEDICAID, SELFPAY ==
[2024-12-13 11:11] VITALS: BMI 31.1
--- OUTSIDE RECORDS SUMMARY | 2024-12-14 15:12 | XMS_ITS | Clinical Summary ---
Author Organization [facility] Address [address] [facility] [address] [place] [address] Care Team Providers Care Power Machine Operator Name Role Phone Linnette Oneill MEDICAL NUMERICAL CONTROL OPERATOR Primary Care Provider [phone] Allergies No known active allergies Medications No [...] Encounters Date Type Department Care Team Description 11/24/2024 Population Health Risk Score [facility] (C3) Department [address] [id number] Provider, Population Health Generic 11/10/2024 Telephone [facility] MEDICINE [address] [place], [place] [phone] Linnette Oneill NP Care Coordination 11/08/2024 Telephone [facility] MEDICINE [address] [place], [place] [phone] Linnette Oneill NP Nurse Triage 10/24/2024 3:15 PM EST Office Visit [facility] OPTOMETRY [address] [place], [place] [phone] Navid, Lucia, OD Regular astigmatism of both eyes (Primary Dx) from Last 3 Months Immunizations Name Administration [...] AM EDT) Hepatitis C Antibody Nonreactive Nonreactive [facility] Comment:Antibodies to HCV no t detected; does not exclude early acuteHCV infection. Blood Venous blood specimen / Unknown 06/09/2024 8:56 AM EDT 06/09/2024 11:22 AM EDT us Linnette Oneill NP LAB BLOOD ORDERABLES Final Resul t Performing Organization Address [facility] Co de Phone Number [facility] [address] [place] [address] [phone] * HIV-1/2 Antigen and Antibodies, Fourth Generation, with Reflexes (06/09/2024 8:56 AM EDT) HIV AB/AG Nonreactive Nonreactive [facility] Comment:HIV-1 p24 Ag and/or HIV-1/HIV-2 Ab not detected.A test result that is nonreactive does not exclude thepossibility of exposure to or infection with HIV-1 and/orHIV-2. Nonreactive results in this assay for individualswith prior exposure to HIV-1 and/or HIV-2 may be due toantigen and antibody levels that are below the limit ofdetection of this assay.The [employer] HIV Ag/Ab Combo assay result andsupplemental assay results should be interpreted inconjunction with the patient's clinical presentation,history and other laboratory results. If the results areinconsistent with clinical evidence, additional testing issuggested to confirm the result. Blood Venous blood specimen / Unknown 06/09/2024 8:56 AM EDT 06/09/2024 11:22 AM EDT us Linnette Oneill NP LAB BLOOD ORDERABLES Final Resul t Performing Organization Address City/[facility]/ZIP Co de Phone Number [facility] [address] [place] [phone] from Last 3 Months or Most Recently Relevant to Health Maintenance Insurance [facility] C3 HSN FULL Care Teams Power Machine Operator Relationship Specialty Start Date End Date Linnette Oneill NP [address] [place] [phone] PCP - General Family Medicine 05/29/24
--- OUTSIDE RECORDS SUMMARY | 2024-12-14 15:12 | XMS_ITS | Clinical Summary ---
Author Organization [email or web address] [facility] ity Address [address] [place] [address] Care Team Providers Care Mainspring Former Brace End Name Role Phone Unavailable Primary Care Provider [...] Influencers of Health Screening 10/12/2023 COVID-19 Vaccine ( - 2023-2 5 season) 2024 Influenza Vaccine (Season Ended) 2025 HIB Vaccines Aged Out No longer eligi [...]
--- OUTSIDE RECORDS SUMMARY | 2024-12-14 15:12 | XMS_ITS | Encounter Summary ---
Author Organization [employer] Address [address] [facility] [address] [place] [address] Care Team Providers Care Mental Health Practitioner Name Role Phone Linnette Oneill AIR ANALYSIS TECHNICIAN Primary Care Provider [phone] Reason for Visit * Reason Onset Date Comments Nurse Triage 11/08/2024 Encounter Details Date Type Department Care Team ([facility] st Contact Info) Description 11/08/2024 Telephone [facility] MEDICINE [address] [place], [place] [phone] Linnette Oneill NP [address] [place] [address] Nurse Triage Social History Tobacco Use Types [...] Pt has had this drained before at [facility] and has been told to contact PCP for referral for surgical removal. Pt reports the cyst is size of a golf ball, hard to the touch and painful. Last time this was drained was before May of 2024. ASK apt with [facility] at 1145am 11/10/24. Pt agrees with [...] bend over. The caller accepted this outcome. [phone] documented in this encounter Plan of Treatment Not on file documented as of this encounter Visit Diagnoses Not on filedocumented in this encounter Additional Health Concerns Assessment Noted Time PHQ-9 Depression Total Score: 4 05/29/20 24 10:05 AM EDT documented as of this encounter Care Teams Mental Health Practitioner Relationship Specialty Start Date End Date Linnette Oneill NP [address] [place] [phone] PCP - General Family Medicine 05/29/24 documented as of this encounter
[2024-12-15] VITALS (7 sets, daily range): BP systolic 114–131; BP diastolic 47–71; PULSE 67–95; RESP 14–18; TEMP 37.1–37.2; O2SAT 95–98; BMI 32.4
--- NOTE | 2024-12-15 04:29 | MHC.SHP ---
Pre-Procedural Eval Section A - 24 Hr Update-Section A only Date of Service: 12/15/24 The patient is an INPATIENT: No Changes since office visit: No Cold of Flu in the past 2 weeks, No New Medical Problems, No Changes in Medication and No Patient answered all questions Section B - Complete if H&P > 30 days Chief Complaint: Pilonidal cyst without abscess Allergies: Allergies Allergy/AdvReac Type Severity Reaction Status Date / Time No Known Allergies Allergy Verified 11/14/24 10:46 Review of Systems Sugical H&P ROS: Negative: Constitution, Cardiovascular, Respiratory, Neurological, Psychiatric, Hem-Onc, Allergic/Immunologic, Gastrointestinal, Genitourinary, Musculoskeletal, Integumentary, Endocrine and Eyes/Ears/Nose/Throat Exam Surgical H&P Exam: Normal: HEENT, Normal: Heart, Normal: Lungs, Normal: Extremities, Normal: Abdomen, Normal: Skin and Normal: Neurological Plan I have reviewed the history and physical and performed a pertinent physical examination on my patient. No changes have occurred unless specified. Time Spent With Patient Time: Total time managing care of this patient today ____ minutes.
[2024-12-15] MEDS: Lactated Ringers 1,000 ML 80 ML IVCONT (09:48)
--- NOTE | 2024-12-15 11:02 | HO.ANESPROP2 ---
HPI - Anesthesia Eval Consult details Narrative: 29 yo M presenting for pilonidal cyst excision and right upper back mass excision. Daily marijuana PMFSH Active Problems Active Problems: All Active Problems Sebaceous cyst (Acute) Pilonidal cyst of cleft (Acute) Past Medical History Medical History (Updated 12/13/24 @ 11:10 by Kate Brandon RN) Fatty liver Appendix abscess Family History Family history of problems with anesthesia: No Surgical History Surgical History (Updated 12/15/24 @ 09:08 by Zoe Rodriguez RN) Hx of appendectomy No pertinent past surgical history History of Problems with Anesthesia: No Social History Social History (Updated 11/14/24 @ 10:47 by DARNELL Oliveira) Are you a primary resident care associate to a significant other at home: No Do you presently have visiting nurse or other home services: No Alcohol intake: never Patient Tobacco Use Status: Never used Tobacco Use of substances other than those prescribed or required for medical reasons: Yes Substance Use Frequency: Daily Have you been hit, kicked, punched, or otherwise hurt by someone within the past year? If so, by whom?: No Are you DNR?: No Advance Directives: No Advance Directives Information Provided: Yes Poor oral hygiene: No Meds Allergies Allergy/AdvReac Type Severity Reaction Status Date / Time No Known Allergies Allergy Verified 12/15/24 09:08 Active Medications: Current Medications Lactated Ringer's (Lr) 1,000 mls @ 80 mls/hr IVCONT .[id number] MARY Last Admin: 12/15/24 09:48 Dose: 80 mls/hr Home Medications ?Medication ?Instructions ?Recorded ?Confirmed ?Last Taken ?Type ibuprofen 600 mg tablet 600 mg PO Q6H PRN Headache 12/15/24 12/15/24 Unknown History Exam Exam Date and Time: 12/15/24 1100 Height,Weight and Vital Signs: Height 5 ft 8.43 in Weight 98 kg Last Vital Signs Temp 99.0 F 12/15/24 09:26 Pulse 67 12/15/24 09:26 Resp 14 12/15/24 09:26 BP 114/67 12/15/24 09:26 Pulse Ox 95 12/15/24 09:26 O2 Del Method Room Air 12/15/24 09:26 Airway Mallampati Class: I TM Dist: >3cm Neck ROM: Full Loose/Missing/Broken Teeth: Yes (missing tooth left upper jaw and chipped #9) Heart: S1S2 Lungs: CTAB Assessment and Plan Assessment Anesthesia Assessment: Anesthesia Plan Discussed and Chart Reviewed Final Anesthetic Review Family History of Problems with Anesthesia: No History of Problems with Anesthesia: No NPO: Yes ASA Class: II Final Preanesthetic Review: No Changes in Pt Med Stat, Meds/Allgs Chart Reviewed, Consent Obtained/Reviewed and Anes Risks/Benef Reviewed Patient Risk: Low Procedure Risk: Low Anesthetic Plan Anesthetic Plan: GA and Agree w/ Assess. and Plan Disposition: Standard PACU
--- NOTE | 2024-12-15 12:13 | W.PM.OPN ---
Operative Note Operative Note Date of Service: 12/15/24 Narrative: Preoperative diagnosis: [] 1. 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 Right upper per back enlarging sebaceous cyst Postop diagnosis: [] The same Procedure [] 1. Wide local excision pilonidal cyst of cleft 2. Excision right upper back large sebaceous cyst Surgeon: [] Dusty Personal Lines Account Executive: [] Sheldon Type of Anesthesia: [] General Indication for surgery: [] Upper back cyst final specimen measured approximately 6 x 3 cm. Uneventfully excision of pilonidal cyst of cleft. Findings: [] Patient brought to the operating room, placed on operative table supine position, after an adequate level general anesthesia was induced, patient was placed in the prone position. Stewart cleft area and upper back reach prepped and draped in usual sterile fashion. Commencing with a pilonidal cyst, a longitudinal by elliptical incision was made around all the diseased area and sinus tract and carried down through skin, subcutaneous tissue, and undermined using Bovie and specimen sent to pathology. Wound was irrigated, secured hemostasis, and closed in the following manner; subcutaneous tissue to wound floor to contralateral subcutaneous tissue interrupted 0 Vicryl sutures were initially placed. Skin was closed using interrupted inverted dermal 2-0 Vicryl sutures followed by vertical mattress 2-0 Prolene sutures. Wound was infiltrated with 0.5% Marcaine/1% lidocaine at completion. Dressing applied. Patient next had a transverse by elliptical incision made around large sebaceous cyst of the right upper back. This carried down through skin, subcutaneous tissue, were superior and inferior skin flaps were developed and uneventful excision of the entire large sebaceous cyst with final dimensions as described earlier was uneventfully performed using Bovie. Specimen sent to pathology. Wound was irrigated, secured hemostasis, and closed using interrupted inverted dermal 2-0 Vicryl sutures followed by Steri-Strips and sterile dressings. Wound was infiltrated 0.5% Marcaine/1% lidocaine at completion. Sponge, needle, and instrument counts reported correct. Patient tolerated the procedure well and emerged from anesthesia stable condition. EBL minimal
--- NOTE | 2024-12-15 13:56 | HO.INF ---
UPON DISCHARGE PATIENT STATED RIDE WAS WAITING DOWNSTAIRS. RIDE WAS NOT WAITING DOWNSTAIRS. PATIENT CALLED THE RIDE AND STATED HE'S JUST DOWN THE STREET. AFTER A FEW MINUTES THE RIDE HAD STILL NOT ARRIVED. PATIENT CALLED RIDE AGAIN. PATIENT WAS OVERHEARD STATING WHAT YOU'RE GETTING FOOD NOW? THIS NURSE EXPLAINED THAT WE COULD WAIT NO LONGER AND NEEDED TO RETURN UPSTAIRS AND WOULD RETURN WHEN RIDE ARRIVED. PATIENT REFUSED TO RETURN UPSTAIRS. PATIENT WAS EDUCATED ON POST OPERATIVE STATUS AND NEED FOR CARE AND SAFETY. PATIENT AGAIN REFUSED TO RETURN UPSTAIRS AND WAS LEFT WAITING FOR HIS RIDE.
== END 2024-12-15 14:02 | disposition home or self-care (01) ==
PROVIDERS: Visit Provider Surgery
PROC: (CPT 11771; principal; 2024-12-15 12:00)
PROC: (CPT 11771; 2024-12-15 12:00)
DX: L05.91 Pilonidal cyst without abscess (principal); L72.3 Sebaceous cyst; Z90.49 Acquired absence of other specified parts of digestive tract
CPT/HCPCS: 11771; 11406; 88304; J0131; J0690; J1100; J1171; J1885; J2003; J2250; J2405; J2704; J2795; J3010

== ENCOUNTER → 2024-12-15 08:25 | Outpatient (BNV) | payer MEDICAID, SELFPAY | PROVIDERS: Visit Provider Surgery | DX: L05.91 Pilonidal cyst without abscess (principal); L72.0 Epidermal cyst | CPT/HCPCS: 11406; 11770 ==

== ENCOUNTER 2024-12-26 11:06 | Outpatient (AMB) | payer MEDICAID, SELFPAY ==
--- NOTE | 2024-12-26 11:13 | A.OFFVIS_ITS ---
Vital Signs 12/26/24 11:20 Weight 207 lb BP 120/78 Blood Pressure Location Rt brachial Position Sitting Pulse 82 Intake Visit Reasons: S/P Rt. back mass exc., pilonidal cyst Intake Note: Patient here s/p WLE X2.1. Wide local excision pilonidal cyst of cleft 2. Excision right upper back large sebaceous cyst. Reports incisions healing well. Patient c/o: sutures from cleft ready to be removed. Gage Designer Required: No Accompanied by: Self / Same As Patient Allergies No Known Allergies Allergy (Verified 12/26/24 11:18) HPI Comments Details: Patient presents for follow-up status post pilonidal cyst excision. No wound issues or complaints. [facility] Medical History (Updated 12/13/24 @ 11:10 by Kate Brandon RN) Fatty liver Appendix abscess Surgical History (Updated 12/26/24 @ 13:53 by Teo Montano MD) Hx of appendectomy No pertinent past surgical history Social History (Updated 11/14/24 @ 10:47 by DARNELL Oliveira) Are you a primary continuum of care manager to a significant other at home: No Do you presently have visiting nurse or other home services: No Alcohol intake: never Patient Tobacco Use Status: Never used Tobacco Physical Exam Vital Signs: Last Vital Signs Pulse 82 12/26/24 11:20 BP 120/78 12/26/24 11:20 Back/Spine/Pelvis Other: Wound well healed. Sutures uneventfully removed. Assessment & Plan Assessment & Plan (1) Status post surgical removal of pilonidal cyst: Code(s): Z98.890 - Other specified postprocedural states Category: Medical Plan Patient was been given local instructions including avoiding strenuous activities next few weeks time and will otherwise follow-up p.r.n.. All questions answered Coding Level of Care Code Global (28216) Diagnoses Status post surgical removal of pilonidal cyst Z98.890
[2024-12-26 11:20] VITALS: BP 120/78; PULSE 82
--- OUTSIDE RECORDS SUMMARY | 2024-12-26 13:37 | XMS_ITS | Encounter Summary ---
Author Organization [employer] Address [address] [facility] 7t [place] [address] Care Team Providers Care Texture Artist Name Role Phone Linnette Oneill CREDIT ADMINISTRATOR Primary Care Provider [phone] Reason for Visit * Reason Comments Care Coordination C3CM- chart review Encounter Details Date Type Department Care Team (Latest Contact Info) Description 12/26/2024 Patient Outreach [facility] MEDICINE [address] [place] [address] Linnette Oneill NP [address] [place] [address] Care Coordination (C3CM- chart review) Social History Tobacco Use Types Packs/Day Years [...] as of this encounter Progress Notes * Harry Kahn RN - 12/26/2024 9:52 AM EDT SCOTT Kahn RN, performed chart review, in anticipation of initial assessment with patient, as patient has stratified for C3 Adult Complex Care through the ADT feed. History significant for elevated liver function tests and pilonidal cyst. Specialists include General Surgery and [facility] Optometry. ED visits within the last 12 months include [facility] [place]24 and [facility] 12/15/24. Last appointment in PCP office on 10/24/24 with Optometry and 05/29/24 for new patient appt. No future appointments scheduled at this time. documented in this encounter Plan of Treatment Not on file documented as of this encounter Visit Diagnoses Not on filedocumented in this encounter Additional Health Concerns Assessment Noted Time PHQ-9 Depression Total Score: 4 05/29/20 24 10:05 AM EDT documented as of this encounter Care Teams Texture Artist Relationship Specialty Start Date End Date Linnette Oneill NP [address] [place] [address] PCP - General Family Medicine 05/29/24 documented as of this encounter
--- OUTSIDE RECORDS SUMMARY | 2024-12-26 13:37 | XMS_ITS | Clinical Summary ---
Author Organization [employer] [facility] ity Address [address] [place] [address] Care Team Providers Care Human Resource Analyst Name Role Phone Unavailable Primary Care Provider [...] age to complete this topic Meningococcal B Vaccine Aged Out No l onger eligible based on patient's age to complete [...]
--- OUTSIDE RECORDS SUMMARY | 2024-12-26 13:37 | XMS_ITS ---
Author Organization [employer] Address [address] [place] [address] 7 [place] [address] Care Team Providers Care Trailer Steerer Name Role Phone Linnette Oneill NP Primary Care Provider [phone] CM Complex Status:Outreach In Progress (Enrolling) Start date:12/26/2024 Enrollment reason:ADT Feed Overview ED- [place] [facility] [place] [facility] [place]. Case Team Name Relationship Phone Harry Kahn RN Registered Nurse(Responsible S taff) Continued Care and Services Coordination
--- OUTSIDE RECORDS SUMMARY | 2024-12-26 13:37 | XMS_ITS ---
Author Organization [email or web address] Address [address] [place] [address] 7 [place] [address] Care Team Providers Care Post Office Clerk Name Role Phone Linnette Oneill NP Primary Care Provider [phone] CHW Complex Status:Outreach In Progress (Enrolling) Start date:12/26/2024 Enrollment reason:ADT Feed Overview ED- [place] [facility] [place]. Please outreach for enrollment. Case Team Name Relationship Phone Tomasa Marcos (Responsible Staff) Continued Care and Services Coordination
--- OUTSIDE RECORDS SUMMARY | 2024-12-26 13:37 | XMS_ITS | Encounter Summary ---
Author Organization [employer] Address [address] [facility] 7t [place] [address] Care Team Providers Care Account Services Coordinator Name Role Phone Linnette Oneill INFORMATION AND DATA ARCHITECT ANALYST Primary Care Provider [phone] Reason for Visit * Reason Comments Care Coordination CM/CHW outreach Encounter Details Date Type Department Care Team (Latest Contact Info) Description 12/26/2024 Patient Outreach [facility] MEDICINE [address] [place] [address] Linnette Oneill NP [address] [place] [address] Care Coordination (CM/CHW outreach) Social History Tobacco Use Types Packs/Day Years [...] as of this encounter Progress Notes * Tomasa Marcos - 12/26/2024 10:25 AM EDT CM/C3 CHW Tomasa Marcos Chart review CHW Tomasa Marcos reviewed chart review completed by SCOTT Kahn RN SCOTT Kahn RN, performed chart review, in anticipation of initial assessment with patient, as patient has stratified for C3 Adult Complex Care through the ADT feed. History significant for elevated liver function tests and pilonidal cyst. Specialists include General Surgery and [facility] Optometry. ED visits within the last 12 months [place] [facility] [place] and [facility] [place]. Last appointment in PCP office [...] documented as of this encounter Care Teams Account Services Coordinator Relationship Specialty Start Date End Date Linnette Oneill NP [address] [place] [address] PCP - General Family Medicine 05/29/24 documented as of this encounter
--- OUTSIDE RECORDS SUMMARY | 2024-12-26 13:37 | XMS_ITS | Encounter Summary ---
Author Organization [employer] Address [address] [facility] [address] 7t [place] [address] Care Team Providers Care Suture Winder Hand Name Role Phone Linnette Oneill NP Primary Care Provider [phone] Encounter Details Date Type Department Care Team (Late st Contact Info) Description 12/26/2024 Patient Outreach [facility] MEDICINE [address] [place], [place] [phone] Linnette Oneill NP [address] [place] [address] Social History Tobacco Use Types Packs/Day Years [...] PM EST documented as of this encounter Plan of Treatment Not on file documented as of this encounter Visit Diagnoses Not on filedocumented in this encounter Additional Health Concerns Assessment Noted Time PHQ-9 Depression Total Score: 4 05/29/20 10:05 AM EDT documented as of this encounter Care Teams Suture Winder Hand Relationship Specialty Start Date End Date Linnette Oneill NP [address] [place] [address] PCP - General Family Medicine 05/29/24 documented as of this encounter
--- OUTSIDE RECORDS SUMMARY | 2024-12-26 13:38 | XMS_ITS | Clinical Summary ---
Author Organization [employer] [facility] Address [address] [facility] 7t [place] [address] Care Team Providers Care Manager Trust Name Role Phone Linnette Oneill GUNNER'S MATE G Primary Care Provider [phone] Allergies No known active allergies Medications No [...] Encounters Date Type Department Care Team Description 12/26/2024 Patient Outreach [facility] [address] [place] [phone] Linnette Oneill NP Care Coordination (CM/CHW outreach) 12/26/2024 Patient Outreach [facility] [address] [place] [address] Linnette Oneill NP Care Coordination (C3CM- chart review) 12/26/2024 Patient Outreach [facility] [address] [place] [address] Linnette Oneill NP 12/15/2024 Orders Only GENERIC EXTERNAL DATA DEPARTMENT Provider, Generic External Data 11/24/2024 Population Health Risk Score [facility] (C3) Department [address] [address] Provider, Population Health Generic 11/10/2024 Telephone [facility] [address] [place], [place] [phone] Linnette Oneill, AMMON Care Coordination 11/08/2024 Telephone [facility] [address] [place], [place] [phone] Linnette Oneill, AMMON Nurse Triage 10/24/2024 3:15 PM EST Office Visit [facility] OPTOMETRY [address], [place] [phone] Navid, Lucia, OD Regular astigmatism of both eyes (Primary Dx) from Last 3 Months Immunizations Name Administration Dates Next Due DTaP 07/23/1998, 6,1994,07/24,1994 Hep A, ped/adol, 2 dose 2011 Hep B, Adolescent or Pediatric 1994,1993,1994 Hib ([facility]) 09/17/1995, 5,1994,06/02 IPV 09/17/1995, 5,1994,06/02 Influenza injectable [...] Procedure Name Priority Date/Time Associated Diagnosis Comments GROSS AND MICROSCOPIC LEVEL 3 Routine 12/15/2024 11:46 AM EDT HEPATITIS C AB W/REFL TO HCV RNA, QN, PCR Routine 06/09/2024 8:56 AM EDT Healthcare maintenance HIV 1/2 ANTIGEN/ANTIBODY, FOURTH GENERATION W/RFL Routine 06/09/2024 8:56 AM EDT Healthcare maintenance from Last 3 Months or Most Recently Relevant to Health Maintenance Results * Gross and Microscopic Level 3 (12/15/2024 11:46 AM EDT) 12/15/2024 11:4 6 AM EDT 12/15/2024 12:24 PM EDT [facility] - 12/20/2024 11:49 AM EDT ----- ------- Name: Herrera Trujillo ? Age/Sex: 29/M ? : 1995 Unit#: [id number] ?? Attend Dr: Teo Montano MD ?Re12/15/24 ?Status: DEP FLC ? Location: HO.SSS ?Disch: ? ----- ------- SPEC : [id number] ? RECD: 12/15/244 ? STATUS: ??SOUT ? REQ NUM: [id number] ? TESS: 12/15/24-1146 ? SUBM DR: Teo Montano MD ? ENTERED: ??12/15/24-1230 ?SP TYPE: Surgical ? OTHR DR: [facility] ? ORDERED: ??Gross Micro L3/2 ? Diagnosis ?? A. ??Skin, cyst, excision: ??Benign skin with squamous-lined cyst/tract with inflammation ?? and fibrosis, compatible with pilonidal cyst. ? B. Skin, right upper back mass, excision: ??Benign epidermal cyst. ?Clinical History Pilonidal cyst and back mass ?Microscopic Description Microscopic sections reviewed. ? Material Received ?? A. Pilonidal cyst ?? B. Right upper back mass ? Gross Description Received in 2 parts. A. ??Received in formalin labeled ?pilonidal cyst? is an ellipse of skin measuring 5.6 x 3.3 cm which has been excised to a depth of 2.5 cm. ??The skin surface is calhoun and smooth. ??The underside is pink-white with lobulated yellow adipose tissue at the deep margin. ??The margins of excision are inked blue. ??The longitudinal poles are submitted for microscopic examination, 2 pieces in cassette A1. ??The specimen is serially sectioned across the short axis revealing a pink-white and yellow fatty cut surface. ??Grossly no cyst cavity is identified, therefore, the entire specimen is submitted for microscopic examination in cassettes A2 through A8, 2 pieces each. B. ??Received in formalin labeled ?right upper back mass? is an oval cystic structure measuring 5.5 x 4.5 x 3.5 cm in greatest dimension. ??The outer surface is red- pink with adherent yellow adipose tissue at the deep margin. ??The specimen is partially covered by an ellipse of calhoun skin measuring 5.0 x 1.1 cm in greatest dimension. ??Sectioning reveals a cavity measuring 3.6 cm in diameter that is partially filled with soft, friable calhoun-white and brown, cheesy keratin material. ??The cyst wall measures 0.1 cm in thickness. ??The inner lining is smooth and unremarkable. ??Caustic Pump Operator sections are submitted for microscopic examination, 1 piece each in cassettes B1 and B2. ??([facility]) ? CONTINUED ON NEXT PAGE ----- ------- Name: Herrera Trujillo ? Age/Sex: 29/M ? : 1995 Unit#: [id number] ?? Attend Dr: Teo Montano MD ?Re12/15/24 ?Status: DEP SDC ? Location: HO.SSS ?Disch: ? ----- ------- SPEC : [id number] ? RECD: 12/15/24 ? STATUS: ??SOUT ? REQ NUM: [id number] ? TESS: 12/15/24-1145 ? SUBM DR: Teo Montano MD ? ENTERED: ??12/15/24-0 ?SP TYPE: Surgical ? OTHR DR: [facility] ? ORDERED: ??Gross Micro L3/2 ? Copies To: ?? [facility] ?? [address] ?? [place] [address] ? Teo Montano MD ?? [facility] ?? [address] ?? [place] [address] ?? [phone] ?? [email or web address] ----- ------- Signed (signature on file) Yarelis Carlos A 12/20/24 1149 ? ----- ------- ? END OF REPORT ? us Generic External Data Provider LAB CYTOLOGY SAULO BOYD Final Result Performing Organization Address [facility] Co de Phone Number [facility] [address] [place] [address] [phone] * Hepatitis C Antibody with Reflex to HCV, RNA, Quantitative, Real-Time PCR (06/09/2024 8:56 AM EDT) Pathologist [facility] Hepatitis C Antibody Nonreactive Nonreactive [facility] Comment:Antibodies to HCV no t detected; does not exclude early acuteHCV infection. Blood Venous blood specimen / Unknown 06/09/2024 8:56 AM EDT 06/09/2024 11:22 AM EDT us Linnette Oneill GUNNER'S MATE G LAB BLOOD ORDERABLES Final Resul t Performing Organization Address [facility] Co de Phone Number [facility] [address] [place] [address] [phone] * HIV-1/2 Antigen and Antibodies, Fourth Generation, with Reflexes (06/09/2024 8:56 AM EDT) Pathologist [facility] HIV AB/AG Nonreactive Nonreactive [facility] Comment:HIV-1 p24 Ag and/or HIV-1/HIV-2 Ab not detected.A test result that is nonreactive does not exclude thepossibility of exposure to or infection with HIV-1 and/orHIV-2. Nonreactive results in this assay for individualswith prior exposure to HIV-1 and/or HIV-2 may be due toantigen and antibody levels that are below the limit ofdetection of this assay.The Meta[employer] HIV Ag/Ab Combo assay result andsupplemental assay results should be interpreted inconjunction with the patient's clinical presentation,history and other laboratory results. If the results areinconsistent with clinical evidence, additional testing issuggested to confirm the result. Blood Venous blood specimen / Unknown 06/09/2024 8:56 AM EDT 06/09/2024 11:22 AM EDT us Linnette Oneill NP LAB BLOOD ORDERABLES Final Resul t [facility] [address] [place] [address] [phone] from Last 3 Months or Most Recently Relevant to Health Maintenance Insurance [facility] C3 HSN FULL Care Teams Manager Trust Relationship Specialty Start Date End Date Linnette Oneill NP [address] [place] [address] PCP - General Family Medicine 05/29/24
--- OUTSIDE RECORDS SUMMARY | 2024-12-26 13:38 | XMS_ITS | Encounter Summary ---
Author Organization [employer] Address [address] [facility] 7t [place] [address] Care Team Providers Care Installer Molding And Trim Name Role Phone Linnette Oneill SERVICE CENTER ASSISTANT Primary Care Provider [phone] Reason for Visit * Reason Onset Date Comments Nurse Triage 11/08/2024 Encounter Details Date Type Department Care Team ([facility] st Contact Info) Description 11/08/2024 Telephone [facility] MEDICINE [address] [place], [place] [phone] Linnette Oneill NP [address] [place] [address] Nurse Triage Social History Tobacco Use Types [...] Pt has had this drained before at [facility] and has been told to contact PCP for referral for surgical removal. Pt reports the cyst is size of a golf ball, hard to the touch and painful. Last time this was drained was before May of 2024. ASK apt with [facility] at 1145am 11/10/24. Pt agrees with [...] bend over. The caller accepted this outcome. [phone] documented in this encounter Plan of Treatment Not on file documented as of this encounter Visit Diagnoses Not on filedocumented in this encounter Additional Health Concerns Assessment Noted Time PHQ-9 Depression Total Score: 4 05/29/20 24 10:05 AM EDT documented as of this encounter Care Teams Installer Molding And Trim Relationship Specialty Start Date End Date Linnette Oneill NP [address] [place] [phone] PCP - General Family Medicine 05/29/24 documented as of this encounter
== END 2024-12-26 11:29 | disposition home or self-care (01) ==
LOC: HO.HGS 11:06
PROVIDERS: Visit Provider Surgery
DX: Z98.890 Other specified postprocedural states (principal)
CPT/HCPCS: 99024

== ENCOUNTER → 2024-12-26 11:06 | Outpatient (BNVA) | payer MEDICAID, SELFPAY | PROVIDERS: Visit Provider Surgery | DX: Z09 Encounter for follow-up examination after completed treatment for conditions other than malignant neoplasm (principal); Z87.2 Personal history of diseases of the skin and subcutaneous tissue; Z98.890 Other specified postprocedural states | CPT/HCPCS: 99212 ==

== ENCOUNTER 2024-12-27 09:01 | Emergency (ER) | payer MEDICAID, SELFPAY ==
[2024-12-27 09:04] VITALS: BP 148/60; PULSE 52; RESP 18; TEMP 37; O2SAT 100; BMI 31.3
--- NOTE | 2024-12-27 09:07 | ECG_ITS ---
Test Reason : DIZINESS Blood Pressure : */* mmHG Vent. Rate : 49 BPM Atrial Rate : 49 BPM P-R Int : 116 ms QRS Dur : 80 ms QT Int : 376 ms P-R-T Axes : 40 11 40 degrees QTcB Int : 339 ms Sinus bradycardia Otherwise normal ECG When compared with ECG of 04-Jan-2024 09:28, No significant change was found Referred By: Generic ED Physician Electronically Signed By: LASHA ABEBE MD
--- NOTE | 2024-12-27 09:15 | ED_ITS ---
HPI - Nausea/Vomiting/Diarrhea General Chief complaint: Nausea/Vomiting/Diarrhea Stated complaint: Dizziness, weakness Time Seen by Provider: 12/27/24 09:12 Source: patient and old records reviewed Mode of arrival: ambulatory Limitations: no limitations History of Present Illness ED Provider: HÉCTOR MENON Narrative: 29 yo male with PMH of cyclical vomiting here with c/o dizziness, general malaise, nausea, diarrhea, mild SOB, and LLQ abdominal pain for 2 days. He states he went to [facility] ED when symptoms started 2 days ago () and paperwork states marijuana induced cyclical vomiting, and he was discharged without counseling to abstain from marijuana use or any medications to manage nausea. He states symptoms are still persistent at this time and is only vomiting up foam . He denies sick contacts, black or bloody stools, bloody or bilious vomiting, photophobia, visual changes, headache, or recent antibiotic use. MD elicited complaint: nausea, vomiting, diarrhea and abdominal pain (LLQ) Pertinent past history: cyclical vomiting Onset (ago): day(s) (2) Associated nausea: Yes Associated abdominal pain: Yes (LLQ ) Location of pain: LLQ Pain consistency: constant Severity: moderate Quality: aching Exacerbating factors: none Relieving factors: none Associated symptoms: malaise, nausea/vomiting and shortness of breath Related Data Home Medications ?Medication ?Instructions ?Recorded ?Confirmed ibuprofen 600 mg tablet 600 mg PO Q6H PRN Headache 12/15/24 12/26/24 Previous Rx's ?Medication ?Instructions ?Recorded ondansetron 4 mg disintegrating 4 mg PO Q8H #20 tabs 01/04/24 tablet famotidine 20 mg tablet (Pepcid) 20 mg PO DAILY PRN abdominal 12/27/24 discomfort #30 tabs ondansetron 4 mg disintegrating 4 mg PO Q8H PRN nausea and 12/27/24 tablet vomiting #20 tabs Allergies Allergy/AdvReac Type Severity Reaction Status Date / Time No Known Allergies Allergy Verified 12/27/24 09:06 Review of Systems 2 Review of Systems: Constitutional : No Weight loss, No Fever, No Chills ENT/Mouth : No sore throat, No Rhinorrhea Eyes: No Swelling, No Redness Cardiovascular : No Chest Pain, No SOB, NoEdema Respiratory : No Cough, No Sputum, No Wheezing Gastrointestinal : Positive Nausea, Positive Vomiting, positive Diarrhea, positive abdominal Pain, No Hematochezia, No Melena Genitourinary : No Dysuria, No Urinary Frequency, No Hematuria, No Urgency Musculoskeletal : No joint pain, No Myalgias, No Joint Swelling Skin : No Skin Lesions, No rash Neuro : No Weakness, No Numbness, No Dizziness, No Headache All other systems reviewed and are negative. Gastrointestinal: Gastrointestinal: Reports nausea PMFSH Past Medical History Attestation statement: The following information was validated with the patient. Source: old records reviewed Medical History Fatty liver Appendix abscess Surgical History Hx of appendectomy No pertinent past surgical history Social History Social History Are you a primary home child care provider to a significant other at home: No Do you presently have visiting nurse or other home services: No Alcohol intake: never Patient Tobacco Use Status: Never used Tobacco Smoked in Last 30 Days: No Use of substances other than those prescribed or required for medical reasons: Yes Substance Use Type: Marijuana Substance Use Frequency: Daily Advance Directives: No Advance Directives Information Provided: Yes Physical Exam 2 Vital Signs: Vital Signs: Last Vital Signs Temp 98.6 F 12/27/24 09:04 Pulse 52 12/27/24 09:04 Resp 18 12/27/24 09:04 BP 148/60 H 12/27/24 09:04 Pulse Ox 100 12/27/24 09:04 O2 Del Method Room Air 12/27/24 09:04 BMI result Body Mass Index 31.3 Appearance: Alert. Oriented X3. No acute distress. Eyes: Pupils equal, round and reactive to light. ENT: Pharynx normal. Neck: Normal inspection. Neck supple. CVS: Normal heart rate and rhythm. Pulses normal. Respiratory: No respiratory distress. Breath sounds normal. Abdomen: Soft and very mild ttp diffuse no rebound or guarding Skin: Skin warm and dry. Normal skin color. Normal skin turgor. Extremities: No lower extremity edema. No calf ttp Neuro: Oriented X 3. No motor deficit. No sensory deficit. CN2-12 intact Medications Administered Discontinued Medications Generic Name Dose Route Start Last Admin Trade Name Freq PRN Reason Stop Dose Admin Diazepam 2.5 mg 12/27/24 09:14 12/27/24 09:32 Diazepam 10 Mg/2 Ml Cartridge IVPUSH 12/27/24 09:15 2.5 mg STAT STA Administration Lactated Ringer's 1,000 mls @ 999 mls/hr 12/27/24 09:14 12/27/24 09:27 Lr IV 12/27/24 10:14 999 mls/hr .Q1H1M ONE Administration Prochlorperazine Edisylate 10 mg 12/27/24 09:14 12/27/24 09:32 Prochlorperazine Edisylate 10 Mg/2 Ml Vial IVPUSH 12/27/24 09:15 10 mg ONCE ONE Administration Medical Decision Making Medical Decision Making MDM Narrative: 29 yo male with PMH of appendectomy here with c/o n/v abdominal pain and diarrhea since Wednesday he went to [facility] Wednesday was given ODT zofran and fluids DC Home - told to stop smoking THC at this time could be viral syndrome, THC use, no localized or biliary colic. No risk factors for colitis, IVF, labs, supportive medications Differential Diagnosis Differential Diagnoses: The differential diagnosis associated with the presentation includes n/v/d dehydration viral syndrome Admission/Observation Consideration of admission/observation: Escalation of care including admission/observation considered feels better tolerating PO stable for DC Lab Data [facility] Lab Attestation statement: I reviewed the patient's lab results. suspect WBC count due to vomiting no diarrhea here to suggest c diff 12/27/24 09:26 12/27/24 09:26 Labs: Lab Results 12/27/24 Range/Units 09:26 WBC 18.5 H (4.8-10.8) X10*3/uL RBC 4.67 (4.60-5.80) X10*6/uL Hgb 13.4 L (14.0-18.0) g/dl Hct 40.6 L (42.0-52.0) % MCV 86.9 (80.0-98.0) fL MCH 28.7 (27.0-33.0) pg MCHC 33.0 (31.0-36.0) g/dl RDW 12.7 (11.0-16.0) % Plt Count 377 (160-400) X10*3/uL MPV 9.8 (9.4-12.4) fL Immature Gran % (Auto) 0.5 H (0.0-0.4) % Neut % (Auto) 85.3 H (45-73) % Lymph % (Auto) 8.3 L (20-40) % Cooper % (Auto) 5.5 (2-11) % Eos % (Auto) 0.2 (0-4) % Baso % (Auto) 0.2 (0-2) % Lymph # (Auto) 1.5 (1.2-4.9) X10*3/uL Cooper # (Auto) 1.0 (0.1-1.2) X10*3/uL Eos # (Auto) 0.0 (0.0-0.4) X10*3/uL Baso # (Auto) 0.0 (0.0-0.2) X10*3/uL Abs Immat Gran (auto) 0.10 H (0.00-0.03) X10*3/uL Absolute Neuts (auto) 15.7 H (2.0-8.3) x10*3/uL Absolute Nucleated RBC 0.000 (0.0-0.012) X10*3/uL Nucleated RBC % (auto) 0.0 (0.0-0.2) /100WBC Sodium 141 (135-145) mmol/L Potassium 3.4 (3.3-5.1) mmol/L Chloride 107 (96-108) mmol/L Carbon Dioxide 25 (22-29) mmol/L Anion Gap 12 (12-20) BUN 10 (9-16) mg/dL Creatinine 0.87 (0.5-1.4) mg/dL Estim Creat Clear Calc 141.9 Estimated GFR > 60 Random Glucose 108 (60-115) mg/dL Calcium 9.3 D (8.4-10.2) mg/dL Total Bilirubin 1.2 H (0.0-1.0) mg/dL Direct Bilirubin 0.4 (0.0-0.5) mg/dL AST 18 (5-37) U/L ALT 14 (0-40) U/L Alkaline Phosphatase 78 (39-117) U/L Total Protein 7.4 (6.5-8.0) g/dL Albumin 4.3 (3.5-5.0) g/dL Lipase 38 (8-78) U/L Independent Interpretation I performed an independent interpretation of an: EKG Interpretation: Rate: 49 Rhythm: sinus bradycardia Renault: normal Normal P waves. Normal GLORIA. Normal QRS complex. ST T wave : normal no CHIKIS qTC:339 prior studies: no acute ischemia The study has been interpreted contemporaneously by me. . External Record Review External record reviewed: Outpatient record Prescription Management I considered prescription management with: Other Discharge Plan Discharge Clinical Impression: Nausea & vomiting Qualifiers: Vomiting type: unspecified Qualified Code(s): R11.2 - Nausea with vomiting, unspecified Patient Disposition: Home, Self-Care Instructions: Acute Nausea and Vomiting (ED), Acute Abdominal Pain (ED) Additional Instructions: rest and stay hydrated bland diet for 48 hours then advance slowly return for any worsening symptoms or concerns Prescriptions: New famotidine [Pepcid] 20 mg tablet 20 mg PO DAILY PRN (Reason: abdominal discomfort) Qty: 30 0RF ondansetron 4 mg tablet,disintegrating 4 mg PO Q8H PRN (Reason: nausea and vomiting) Qty: 20 0RF No Action ondansetron 4 mg tablet,disintegrating 4 mg PO Q8H Qty: 20 0RF ibuprofen 600 mg Tablet 600 mg PO Q6H PRN (Reason: Headache) Stand Alone Forms: Work/School Release Print Language: Emirati
[2024-12-27] MEDS: Lactated Ringers 1,000 ML 999 ML IV (09:27)
[2024-12-27 09:30] LABS: MANUAL DIFF FLAG NO
[2024-12-27] MEDS: Prochlorperazine Edisylate 10 MG/2 ML VIAL IVPUSH (09:32)
[2024-12-27] MEDS: diazePAM 10 MG/2 ML CARTRIDGE 2.5 MG IVPUSH (09:32)
[2024-12-27 09:37] LABS: Basophils Percent Auto 0.2 % (0-2); Eosinophils Percent Auto 0.2 % (0-4); Hematocrit 40.6 % (42.0-52.0); Hemoglobin 13.4 g/dl (14.0-18.0); Imm Gran Pct Auto 0.5 % (0.0-0.4); Lymphocytes Absolute Auto 1.5 X10*3/uL (1.2-4.9); Lymphocytes Percent Auto 8.3 % (20-40); Mean Corpuscular Hemoglobin 28.7 pg (27.0-33.0); Mean Corpuscular Volume 86.9 fL (80.0-98.0); Mean Platelet Volume 9.8 fL (9.4-12.4); Monocytes Percent Auto 5.5 % (2-11); Neutrophils Absolute Auto 15.7 x10*3/uL (2.0-8.3); Neutrophils Percent Auto 85.3 % (45-73); Platelet Count 377 X10*3/uL (160-400); Red Blood Count 4.67 X10*6/uL (4.60-5.80); Red Cell Distribution Width 12.7 % (11.0-16.0); White Blood Count 18.5 X10*3/uL (4.8-10.8)
[2024-12-27 09:49] LABS: Alanine Aminotransferase 14 U/L (0-40); Albumin Level 4.3 g/dL (3.5-5.0); Alkaline Phosphatase 78 U/L (39-117); Anion Gap 12 (12-20); Aspartate Amino Transferase 18 U/L (5-37); Bilirubin Direct 0.4 mg/dL (0.0-0.5); Bilirubin Total 1.2 mg/dL (0.0-1.0); Blood Urea Nitrogen 10 mg/dL (9-16); Calcium 9.3 mg/dL (8.4-10.2); Carbon Dioxide 25 mmol/L (22-29); Chloride 107 mmol/L (96-108); Creatinine Clr Calc Pharmacy 141.9; Estimated Glomerular Filt Rate > 60; Glucose Random 108 mg/dL (60-115); Lipase 38 U/L (8-78); Potassium 3.4 mmol/L (3.3-5.1); Sodium 141 mmol/L (135-145); Total Protein 7.4 g/dL (6.5-8.0)
--- OUTSIDE RECORDS SUMMARY | 2024-12-27 10:52 | XMS_ITS | Encounter Summary ---
Author Organization [employer] Address [address] [facility] 7t [place] [address] Care Team Providers Care Overcaster Name Role Phone Linnette Oneill FILM WRITER Primary Care Provider [phone] Reason for Visit * Reason Comments Care Coordination CM/CHW outreach Encounter Details Date Type Department Care Team (Latest Contact Info) Description 12/26/2024 Patient Outreach [facility] MEDICINE [address] [place] [address] Linnette Oneill NP [address] [place] [address] Care Coordination (CM/CHW outreach) Social History Tobacco [...] pilonidal cyst. Specialists include General Surgery and [facility] Optometry. ED visits within the last 12 months include [facility] ED 12/25/[address] [facility] ED 12/15/24. Last appointment in PCP office [...] documented as of this encounter Care Teams Overcaster Relationship Specialty Start Date End Date Linnette Oneill NP [address] [place] [phone] PCP - General Family Medicine 05/29/24 documented as of this encounter
--- OUTSIDE RECORDS SUMMARY | 2024-12-27 10:52 | XMS_ITS ---
Author Organization [employer] Address [address] [place] [address] 7 [place] [address] Care Team Providers Care Hay Buckler Name Role Phone Linnette Oneill NP Primary Care Provider [phone] CM Complex Status:Outreach In Progress (Enrolling) Start date:12/26/2024 Enrollment reason:ADT Feed Overview ED- Pt went to [facility] on 12/25/24. Case Team Name Relationship Phone Harry Kahn RN Registered Nurse(Responsible S taff) Continued Care and Services Coordination
--- OUTSIDE RECORDS SUMMARY | 2024-12-27 10:52 | XMS_ITS | Clinical Summary ---
Author Organization [employer] [facility] ity Address [address] [place] [address] Care Team Providers Care Cuff Runner Name Role Phone Unavailable Primary Care Provider [...]
--- OUTSIDE RECORDS SUMMARY | 2024-12-27 10:52 | XMS_ITS | Encounter Summary ---
Author Organization [employer] Address [address] [facility] [address] [place] [address] Care Team Providers Care Manager Search Name Role Phone Linnette Oneill NP Primary Care Provider Encounter Details Date Type Department Care Team (Late st Contact Info) Description 12/26/2024 Patient Outreach [facility] MED[facility]INE [address] [place], [place] [phone] Linnette Oneill NP [address] [place] [address] Social History Tobacco Use Types Packs/Day Years [...] documented as of this encounter Care Teams Manager Search Relationship Specialty Start Date End Date Linnette Oneill NP [address] [place] [address] PCP - General Family Medicine 05/29/24 documented as of this encounter
--- OUTSIDE RECORDS SUMMARY | 2024-12-27 10:52 | XMS_ITS | Encounter Summary ---
Author Organization [employer] Address [address] [facility] 7t [place] [address] Care Team Providers Care Land Planner Name Role Phone Linnette Oneill SOFTWARE LICENSING ANALYST Primary Care Provider [phone] Reason for Visit * Reason Comments Care Coordination CM/CHW outreach Encounter Details Date Type Department Care Team (Latest Contact Info) Description 12/26/2024 Patient Outreach [facility] MEDICINE [address] [place] [address] Linnette Oneill NP [address] [place] [address] Care Coordination (CM/CHW outreach) Social History Tobacco [...] Progress Notes * Tomasa Marcos - 12/26/2024 2:37 PM EDT CHW Tomasa Marcos, placed outbound call to patient in regards to offer Adult Complex Care Program and SDOH services. No answer at this time. CHW LVM introducing herself [facility] with CHW's name, department and direct contact number requesting call back. Will re-attempt to contact within 5 days. and address not confirmed. documented in this encounter Plan of Treatment Not on file documented as of this encounter Visit Diagnoses Not on filedocumented in this encounter Additional Health Concerns Assessment Noted Time PHQ-9 Depression Total Score: 4 05/29/20 24 10:05 AM EDT documented as of this encounter Care Teams Land Planner Relationship Specialty Start Date End Date Linnette Oneill NP [address] [place] [phone] PCP - General Family Medicine 05/29/24 documented as of this encounter
--- OUTSIDE RECORDS SUMMARY | 2024-12-27 10:52 | XMS_ITS | Clinical Summary ---
Author Organization [employer] [facility] Address [address] [facility] 7t [place] [address] Care Team Providers Care Java Solutions Architect Name Role Phone Linnette Oneill STEREO EQUIPMENT INSTALLER Primary Care Provider [phone] Allergies No known active allergies Medications No [...] Department Care Team Description 12/26/2024 Patient Outreach [address] [address] Linnette Oneill NP Care Coordination (CM/CHW outreach) 12/26/2024 Patient Outreach [address] [address] Linnette Oneill NP Care Coordination (CM/CHW outreach) 12/26/2024 Patient Outreach [address] [address] Linnette Oneill NP Care Coordination (C3CM- chart review) 12/26/2024 Patient Outreach [address] [phone] Linnette Oneill NP 12/15/2024 Orders Only GENERIC EXTERNAL DATA DEPARTMENT Provider, Generic External Data 11/24/2024 Population Health Risk Score [facility] (C3) Department [address] [facility] [address] [place] [address] Provider, Population Health Generic 11/10/2024 Telephone [facility] [address] [place] [address] Linntete Oneill, AMMON Care Coordination 11/08/2024 Telephone [facility] [address] [place] [address] Linnette Oneill, AMMON Nurse Triage 10/24/2024 3:15 PM EST Office Visit [facility] OPTOMETRY [address] [place] [address] Navid, Lucia, OD Regular astigmatism of both eyes (Primary Dx) from Last 3 Months Immunizations Name Administration Dates Next Due DTaP 07/23/1998, 6,1994,07/24,1994 Hep A, ped/adol, 2 dose 2011 Hep B, Adolescent or Pediatric 1994,1993,1994 Hib (HbO) 09/17/1995, 5,1994,06/02 IPV 09/17/1995, 5,1994,06/02 Influenza injectable [...] 05/29/2025 05/29/2024 Depression Screening 05/29/2025 05/29/2024, 05/29/20 SDOH Screening 05/29/2025 05/29/2024 Tobacco Screening 09/11/2025 [...] Procedure Name Priority Date/Time Associated Diagnosis Comments LIPASE Routine 12/27/2024 9:26 AM EDT BASIC METABOLIC PANEL Routine 12/27/2024 9:26 AM EDT HEPATIC FUNCTION PANEL Routine 12/27/2024 9:26 AM EDT CBC WITH AUTO DIFFERENTIAL Routine 12/27/2024 9:26 AM EDT GROSS AND MICROSCOPIC LEVEL 3 Routine 12/15/2024 11:46 AM EDT HEPATITIS C AB W/REFL TO HCV RNA, QN, PCR Routine 06/09/2024 8:56 AM EDT Healthcare maintenance HIV 1/2 ANTIGEN/ANTIBODY, FOURTH GENERATION W/RFL Routine 06/09/2024 8:56 AM EDT Healthcare maintenance from Last 3 Months or Most Recently Relevant to Health Maintenance Results * (ABNORMAL) CBC auto differential (12/27/2024 9:26 AM EDT) White Blood Count 18.5(H) 4.8 - 10.8 X10*3/uL [facility] Red Blood Count 4.67 4.60 - 5.80 X10*6/uL [facility] Hemoglobin 13.4(L) 14.0 - 18.0 g/dl [facility] Hematocrit 40.6(L) 42.0 - 52.0 % [facility] Mean Corpuscular Volume 86.9 80.0 - 98.0 fL [facility] Mean Corpuscular Hemoglobin 28.7 27.0 - 33.0 pg [facility] Mean Corpuscular HGB Conc 33.0 31.0 - 36.0 g/dl [facility] Red Cell Distribution Width 12.7 11.0 - 16.0 % [facility] Platelet Count 377 160 - 400 X10*3/uL [facility] Mean Platelet Volume 9.8 9.4 - 12.4 fL [facility] Neutrophils Percent Auto 85.3(H) 45 - 73 % [facility] Imm Gran Pct Auto 0.5(H) 0.0 - 0.4 % [facility] Lymphocytes Percent Auto 8.3(L) 20 - 40 % [facility] Monocytes Percent Auto 5.5 2 - 11 % [facility] Eosinophils Percent Auto 0.2 0 - 4 % [facility] Basophils Percent Auto 0.2 0 - 2 % [facility] NRBC Pct Auto 0.0 0.0 - 0.2 /100WBC [facility] Neutrophils Absolute Auto 15.7(H) 2.0 - 8.3 x10*3/uL [facility] Imm Gran Abs Auto 0.10(H) 0.00 - 0.03 X10*3/uL [facility] Lymphocytes Absolute Auto 1.5 1.2 - 4.9 X10*3/uL [facility] Monocytes Absolute Auto 1.0 0.1 - 1.2 X10*3/uL [facility] Eosinophils Absolute Auto 0.0 0.0 - 0.4 X10*3/uL [facility] Basophils Absolute Auto 0.0 0.0 - 0.2 X10*3/uL [facility] NRBC Abs Auto 0.000 0.0 - 0.012 X10*3/uL [facility] 12/27/2024 9:26 AM EDT 12/27/2024 9:29 AM EDT us Generic External Data Provider LAB BLOOD ORDERAB LES Final Result Performing Organization Address City/[facility] Co de Phone Number [facility] [address] [place] [phone] * Lipase (12/27/2024 9:26 AM EDT) Lipase 38 8 - 78 U/L [facility] 12/27/2024 9:26 AM EDT 12/27/2024 9:29 AM EDT us Generic External Data Provider LAB BLOOD ORDERAB LES Final Result Performing Organization Address City/[facility]/ZIP Co de Phone Number [facility] [address] [place] [address] [phone] * (ABNORMAL) Hepatic Function Panel (12/27/2024 9:26 AM EDT) Bilirubin, Total 1.2(H) 0.0 - 1.0 mg/dL [facility] Bilirubin, Direct 0.4 0.0 - 0.5 mg/dL [facility] Aspartate Amino Transferase 18 5 - 37 U/L [facility] Alanine Aminotransferase 14 0 - 40 U/L [facility] Total Protein 7.4 6.5 - 8.0 g/dL [facility] Albumin Level 4.3 3.5 - 5.0 g/dL [facility] Alkaline Phosphatase 78 39 - 117 U/L [facility] 12/27/2024 9:26 AM EDT 12/27/2024 9:29 AM EDT Generic External Data Provider LAB BLOOD ORDERAB LES Final Result Performing Organization Address [facility]/ZIP Co de Phone Number [facility] [address] [place] [phone] * Basic Metabolic Panel (12/27/2024 9:26 AM EDT) [facility] Sodium 141 135 - 145 mmol/L [facility] Potassium 3.4 3.3 - 5.1 mmol/L [facility] Chloride 107 96 - 108 mmol/L [facility] Carbon Dioxide 25 22 - 29 mmol/L [facility] Anion Gap 12 12 - 20 [facility] Urea Nitrogen (BUN) 10 9 - 16 mg/dL [facility] Creatinine, Serum 0.87 0.5 - 1.4 mg/dL [facility] Creatinine Clr Calc Pharmacy 141.9 [facility] Comment:eGFR (calculated fro m the MDRD study equation) and eCrCl(calculated from the Cockcroft-Gault equation) are based ondifferent parameters and may not yield comparable results.If eCrCl result is absurd, please check patient'sheight/weight. Estimated Glomerular Filt Rate >60 [facility] Comment:Chronic Kidney Disea se: Estimated GFR < 60 mL/min/1.11e7Nlbaea Kidney Disease: Estimated GFR < 15 mL/min/1.73m2 Glucose 108 60 - 115 mg/dL [facility] Calcium 9.3 8.4 - 10.2 mg/dL [facility] 12/27/2024 9:26 AM EDT 12/27/2024 9:29 AM EDT us Generic External Data Provider LAB BLOOD ORDERAB LES Final Result [facility] [address] [place] [phone] * Gross and Microscopic Level 3 (12/15/2024 11:46 AM EDT) 12/15/2024 11:4 6 AM EDT 12/15/2024 12:24 PM EDT Narrative [facility] - 12/20/2024 11:49 AM EDT ----- ------- Name: Herrera Trujillo ? Age/Sex: 29/M ? : 1995 Unit#: [id number] ?? Attend Dr: Teo Montano MD ?Re12/15/24 ?Status: DEP [facility] ? Location: HO.SSS ?Disch: ? ----- ------- SPEC : [id number] ? RECD: 12/15/24 ? STATUS: ??SOUT ? REQ NUM: [id number] ? TESS: 12/15/24-1146 ? SUBM DR: Teo Montano MD ? ENTERED: ??12/15/241230 ?SP TYPE: Surgical ? OTHR DR: [facility] ? ORDERED: ??Gross Micro L3/2 ? Diagnosis [...] ??The inner lining is smooth and unremarkable. ??Ice Guard Inspector sections are submitted for microscopic examination, 1 piece each in cassettes B1 and B2. ??([facility]) ? CONTINUED ON NEXT PAGE ----- ------- Name: Herrera Trujillo ? Age/Sex: 29/M ? : 1995 Unit#: [id number] ?? Attend Dr: Teo Montano MD ?Re12/15/24 ?Status: DEP SDC ? Location: HO.SSS ?Disch: ? ----- ------- SPEC : [id number] ? RECD: 12/15/24-4 ? STATUS: ??SOUT ? REQ NUM: [id number] ? TESS: 12/15/24-1146 ? SUBM DR: Teo Montano MD ? ENTERED: ??12/15/24-1230 ?SP TYPE: Surgical ? OTHR DR: [facility] ? ORDERED: ??Gross Micro L3/2 ? Copies To: ?? [facility] ?? [address] ?? [place] [id number] ? Teo Montano MD ?? [facility] General Surgeons ?? [address] ?? [place] ?? [phone] ?? [email or web address] ----- ------- Signed (signature on file) Yarelis Carlos A 12/20/24 1149 ? ----- ------- ? END OF REPORT ? us Generic External Data Provider LAB CYTOLOGY SAULO BOYD Final Result [facility] [address] [place] [phone] * Hepatitis C Antibody with Reflex to HCV, RNA, Quantitative, Real-Time PCR (06/09/2024 8:56 AM EDT) Hepatitis C Antibody Nonreactive Nonreactive [facility] Comment:Antibodies to HCV no t detected; does not exclude early acuteHCV infection. Blood Venous blood specimen / Unknown 06/09/2024 8:56 AM EDT 06/09/2024 11:22 AM EDT us Linnette Oneill NP LAB BLOOD ORDERABLES Final Resul t Performing Organization Address City/[facility]/ZIP Co de Phone Number [facility] [address] [place] [phone] * HIV-1/2 Antigen and Antibodies, Fourth Generation, with Reflexes (06/09/2024 8:56 AM EDT) HIV AB/AG Nonreactive Nonreactive [facility] Comment:HIV-1 p24 Ag and/or HIV-1/HIV-2 Ab not detected.A test result that is nonreactive does not exclude thepossibility of exposure to or infection with HIV-1 and/orHIV-2. Nonreactive results in this assay for individualswith prior exposure to HIV-1 and/or HIV-2 may be due toantigen and antibody levels that are below the limit ofdetection of this assay.The Mark43 HIV Ag/Ab Combo assay result andsupplemental assay results should be interpreted inconjunction with the patient's clinical presentation,history and other laboratory results. If the results areinconsistent with clinical evidence, additional testing issuggested to confirm the result. Blood Venous blood specimen / Unknown 06/09/2024 8:56 AM EDT 06/09/2024 11:22 AM EDT us Linnette Oneill NP LAB BLOOD ORDERABLES Final Resul t Performing Organization Address City/[facility]/ZIP Co de Phone Number [facility] [address] [place] [address] [phone] from Last 3 Months or Most Recently Relevant to Health Maintenance Insurance [facility] C3 HSN FULL Care Teams Java Solutions Architect Relationship Specialty Start Date End Date Linnette Oneill NP [address] [place] [phone] PCP - General Family Medicine 05/29/24
--- OUTSIDE RECORDS SUMMARY | 2024-12-27 10:52 | XMS_ITS ---
Author Organization [employer] Address [address] [place] [address] 7 [place] [address] Care Team Providers Care Wood Block Artist Name Role Phone Linnette Oneill NP Primary Care Provider [phone] CH[facility] Complex Status:Outreach In Progress (Enrolling) Start date:12/26/2024 Enrollment reason:ADT Feed Overview ED- Pt went to [facility] on 12/25/24. Please outreach for enrollment. Case Team Name Relationship Phone Tomasa Marcos (Responsible Staff) Continued Care and Services Coordination
--- OUTSIDE RECORDS SUMMARY | 2024-12-27 10:52 | XMS_ITS | Encounter Summary ---
Author Organization [employer] Address [address] 7[address] [place] [address] Care Team Providers Care Housekeeping Attendant Name Role Phone Linnette Oneill ACCOUNTING INSTRUCTOR Primary Care Provider [phone] Reason for Visit * Reason Onset Date Comments Nurse Triage 11/08/2024 Encounter Details Date Type Department Care Team ([facility] st Contact Info) Description 11/08/2024 Telephone [facility] [address] [place], [place] [id number] Linnette Oneill NP [address] [place] [address] Nurse Triage Social History Tobacco Use Types [...] Pt [place] this [place] [facility] and has been told to contact PCP for referral for surgical removal. Pt reports the cyst is size of a golf ball, hard to the touch and painful. Last time this was drained was before May of 2024. ASK apt with [facility] at 1145am 11/10/24. Pt agrees with disposition. [...] bend over. The caller accepted this outcome. [phone] documented in this encounter Plan of Treatment Not on file documented as of this encounter Visit Diagnoses Not on filedocumented in this encounter Additional Health Concerns Assessment Noted Time PHQ-9 Depression Total Score: 4 05/29/20 24 10:05 AM EDT documented as of this encounter Care Teams Housekeeping Attendant Relationship Specialty Start Date End Date Linnette Oneill NP [address] [place] [id number] PCP - General Family Medicine 05/29/24 documented as of this encounter
--- OUTSIDE RECORDS SUMMARY | 2024-12-27 10:52 | XMS_ITS | Encounter Summary ---
Author Organization [employer] Address [address] [facility] 7[address] [place] [address] Care Team Providers Care Residential Treatment Specialist Name Role Phone Linnette Oneill SUPERVISOR [employer]SEM[employer] Primary Care Provider [phone] Reason for Visit * Reason Comments Care Coordination C3CM- chart review Encounter Details Date Type Department Care Team (Latest Contact Info) Description 12/26/2024 Patient Outreach [facility] [address] [place] [address] Linnette Oneill NP [address] [place] [address] Care Coordination (C3CM- chart review) Social History [...] pilonidal cyst. Specialists include General Surgery and [facility] Optometry. ED visits within the last 12 months include [facility] 12/25/24 and [facility] [place] 12/15/24. Last appointment in PCP office [...] documented as of this encounter Care Teams Residential Treatment Specialist Relationship Specialty Start Date End Date Linnette Oneill NP [address] [place] [address] PCP - General Family Medicine 05/29/24 documented as of this encounter
[2024-12-27 11:25] VITALS: BP 108/79; PULSE 66; RESP 18; TEMP 36.9; O2SAT 96
== END 2024-12-27 11:26 | disposition home or self-care (01) ==
PROVIDERS: Emergency Provider Emergency Medicine
DX: R11.2 Nausea with vomiting, unspecified (principal); R10.32 Left lower quadrant pain
CPT/HCPCS: 36415; 80048; 80076; 83690; 85025; 93005; 96361; 96374; 96375; 99284; 99285; J0737; J3360; J7120

== ENCOUNTER → 2024-12-27 09:07 | Outpatient (BNV) | payer MEDICAID, SELFPAY | PROVIDERS: Emergency Provider Emergency Medicine; Visit Provider Internal Medicine Cardiovascular Disease | DX: R00.1 Bradycardia, unspecified (principal) | CPT/HCPCS: 93010 ==

== ENCOUNTER 2025-03-08 06:23 | Inpatient (IN) | payer MEDICAID, SELFPAY ==
[2025-03-08] VITALS (11 sets, daily range): BP systolic 113–141; BP diastolic 60–84; PULSE 36–55; RESP 12–20; TEMP 36.6–37.2; O2SAT 97–100; BMI 30.3; BMI 32.3
--- NOTE | ~2025-03-08 | XR_ITS ---
EXAMINATION: XR CHEST CLINICAL INFORMATION: Marked symptomatic bradycardia COMPARISON: 01/04/2024 TECHNIQUE: Frontal view of the chest was obtained. FINDINGS: Pacer pads overlie the left upper thorax. The cardiac, hilar, and mediastinal contours are normal. The lungs are clear bilaterally. No pneumothorax or effusion. No focal osseous or soft tissue abnormality. XR/XR chest 1V IMPRESSION: Normal chest. Electronically signed by: Neymar Chauhan MD 03/08/2025 03:02 PM EDT
[2025-03-08 06:50] LABS: MANUAL DIFF FLAG NO
[2025-03-08 06:53] LABS: Basophils Percent Auto 0.2 % (0-2); Eosinophils Absolute Auto 0.3 X10*3/uL (0.0-0.4); Hematocrit 40.4 % (42.0-52.0); Hemoglobin 14.2 g/dl (14.0-18.0); Imm Gran Abs Auto 0.13 X10*3/uL (0.00-0.03); Imm Gran Pct Auto 0.8 % (0.0-0.4); Lymphocytes Absolute Auto 1.6 X10*3/uL (1.2-4.9); Lymphocytes Percent Auto 9.3 % (20-40); Mean Corpuscular HGB Conc 35.1 g/dl (31.0-36.0); Mean Corpuscular Volume 82.6 fL (80.0-98.0); Mean Platelet Volume 9.2 fL (9.4-12.4); Monocytes Absolute Auto 0.5 X10*3/uL (0.1-1.2); Monocytes Percent Auto 2.9 % (2-11); Neutrophils Absolute Auto 14.3 x10*3/uL (2.0-8.3); Neutrophils Percent Auto 84.8 % (45-73); Platelet Count 370 X10*3/uL (160-400); Red Blood Count 4.89 X10*6/uL (4.60-5.80); White Blood Count 16.8 X10*3/uL (4.8-10.8)
[2025-03-08 07:06] LABS: Alanine Aminotransferase 17 U/L (0-40); Albumin Level 4.5 g/dL (3.5-5.0); Alkaline Phosphatase 87 U/L (39-117); Anion Gap 14 (12-20); Aspartate Amino Transferase 25 U/L (5-37); Bilirubin Direct 0.2 mg/dL (0.0-0.5); Bilirubin Total 0.7 mg/dL (0.0-1.0); Blood Urea Nitrogen 11 mg/dL (9-16); Calcium 9.5 mg/dL (8.4-10.2); Carbon Dioxide 21 mmol/L (22-29); Chloride 106 mmol/L (96-108); Creatinine Clr Calc Pharmacy 177.2; Estimated Glomerular Filt Rate > 60; Glucose Random 137 mg/dL (60-115); Lipase 27 U/L (8-78); Potassium 3.7 mmol/L (3.3-5.1); Sodium 137 mmol/L (135-145); Total Protein 7.7 g/dL (6.5-8.0)
[2025-03-08 07:28] LABS: Influenza A PCR NEGATIVE (Negative); Influenza B PCR NEGATIVE (Negative); Resp Syncy Virus RNA Qual PCR NEGATIVE (Negative); SARS COV2 PCR INHOUSE NEGATIVE (Negative)
[2025-03-08] MEDS: Ondansetron ODT 4 MG TAB.RAPDIS TRANSLINGU (07:46)
--- NOTE | 2025-03-08 08:09 | ED.GENADULT ---
HPI - General Adult General Chief complaint: General Medical Stated complaint: sob feels like going to pass out Time Seen by Provider: 03/08/25 08:06 Source: patient Mode of arrival: ambulatory Limitations: no limitations History of Present Illness ED Provider: Bobo Stone PA-C HPI narrative: 30 yo male presenting for evaluation of N/V/D and dizziness that started at 2am. He states he has had this happen several times in the past after eating dairy. He thinks he may be lactose intolerant. He ate pizza yesterday. 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 He states he has been trying to stay hydrated with water and Gatorade but his urine is very concentrated and he feels dehydrated and weak. He states he has had several episodes of nonbloody vomitus and diarrhea since 02:00. He has some epigastric discomfort but no localized abdominal pain. He denies fever or chills. No known sick contacts. No burning w/ urination or blood in his urine MD complaint: n/v/d, dizziness Onset (ago): hour(s) Pain Consistency: constant Relieving factors: none Exacerbating factors: movement Associated symptoms: loss of appetite, malaise, nausea/vomiting and weakness Treatments prior to arrival: none Related Data Home Medications ?Medication ?Instructions ?Recorded ?Confirmed ibuprofen 600 mg tablet 600 mg PO Q6H PRN Headache 12/15/24 12/26/24 Previous Rx's ?Medication ?Instructions ?Recorded ondansetron 4 mg disintegrating 4 mg PO Q8H #20 tabs 01/04/24 tablet famotidine 20 mg tablet (Pepcid) 20 mg PO DAILY PRN abdominal 12/27/24 discomfort #30 tabs ondansetron 4 mg disintegrating 4 mg PO Q8H PRN nausea and 12/27/24 tablet vomiting #20 tabs Allergies Allergy/AdvReac Type Severity Reaction Status Date / Time No Known Allergies Allergy Verified 03/08/25 06:35 Review of Systems Review of Systems: Yes all other systems are reviewed and are negative [facility] Past Medical History Medical History Fatty liver Appendix abscess Surgical History Hx of appendectomy No pertinent past surgical history Social History Social History Are you a primary palliative care coordinator to a significant other at home: No Do you presently have visiting nurse or other home services: No Alcohol intake: never Patient Tobacco Use Status: Never used Tobacco Smoked in Last 30 Days: Yes Use of substances other than those prescribed or required for medical reasons: Yes Substance Use Type: Marijuana Advance Directives: No Advance Directives Information Provided: Yes Do you have a plan to hurt others: No Plan Physical Exam ED Vital Signs: Vital Signs - 24 hr 03/08/25 06:34 03/08/25 08:55 03/08/25 09:05 Temperature 98.1 F Pulse Rate 55 44 L 36 L Respiratory Rate 18 18 Blood Pressure 141/84 H 125/78 Pulse Oximetry 100 100 Oxygen Delivery Method Room Air Room Air 03/08/25 09:35 03/08/25 11:26 03/08/25 11:27 Temperature 97.9 F Pulse Rate 49 L 42 L 41 L Respiratory Rate 14 Blood Pressure 123/62 121/72 113/64 Pulse Oximetry 100 Oxygen Delivery Method Room Air 03/08/25 11:29 03/08/25 12:32 Temperature Pulse Rate 44 L 37 L Respiratory Rate 12 Blood Pressure 127/80 136/82 Pulse Oximetry 99 Oxygen Delivery Method Room Air BMI result Body Mass Index 30.3 Appearance: Alert. Oriented X3. Appears well and ill Head: normocephalic, atraumatic. Eyes: Pupils equal, round and reactive to light. ENT: Pharynx normal. No tonsillar swelling or exudate. Neck: Normal inspection. Neck supple. CVS: Bradycardia, HR 40s, normal S1/S2. Pulses normal. Respiratory: No respiratory distress. Breath sounds normal. Abdomen: Soft and nontender. +BS x4 Skin: Skin warm and dry. Normal skin color. Normal skin turgor. No rashes. Extremities: No lower extremity edema. No joint swelling. Neuro/psych: Oriented X 3. No motor deficit. No sensory deficit. CN II-XII intact. Normal speech and cognition. Medications Administered Discontinued Medications Generic Name Dose Route Start Last Admin Trade Name Freq PRN Reason Stop Dose Admin Lactated Ringer's 1,000 mls @ 999 mls/hr 03/08/25 08:45 03/08/25 10:09 Lr IV 03/08/25 09:45 Infused .Q1H1M MARY Infusion Lactated Ringer's 1,000 mls @ 999 mls/hr 03/08/25 09:15 03/08/25 10:57 Lr IV 03/08/25 10:15 Infused .Q1H1M MARY Infusion Lactated Ringer's 1,000 mls @ 999 mls/hr 03/08/25 12:15 03/08/25 12:33 Lr IV 03/08/25 13:15 999 mls/hr .Q1H1M MARY Administration Ondansetron HCl 4 mg 03/08/25 07:42 03/08/25 07:46 Ondansetron Odt 4 Mg Tab.Rapdis TRANSLINGU 03/08/25 07:43 4 mg ONCE ONE Administration Ondansetron HCl 4 mg 03/08/25 08:39 03/08/25 08:54 Ondansetron Hcl 4 Mg/2 Ml Vial IVPUSH 03/08/25 08:40 4 mg ONCE ONE Administration Medical Decision Making Medical Decision Making MDM Narrative: 30-year-old otherwise healthy male, 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 He reports he feels like he is going to pass out. while on telemetry in the ER heart rates went to as low as 32. He was pale, feeling like he was going to syncopized. Pacer pads applied and brought to the main ER. IVF infusing. EKG with sinus bradycardia, normal TN interval, no ST segment elevations or depressions. Labs show leukocytosis, likely reactive from vomiting. no fevers. low suspicion for infection. Bicarb is slightly low, likely due to GI losses. Otherwise his BUN and creatinine are normal, potassium is normal. Troponin is negative. Patient given a total of 3 L of IV fluids. Orthostatic vital signs are negative. He continues to be bradycardic with heart rates in the 30s to 40s, continues to feel dizzy and presyncopal when he stands up. Not safe for discharge home. Will admit to the hospital for observation. Cardiology aware, recommend monitoring. Differential Diagnosis Differential Diagnoses: The differential diagnosis associated with the presentation includes dehydration, gastroenteritis, food intolerance, electrolyte abnormality, sinus bradycardia, heart block, tick borne illness Admission/Observation Consideration of admission/observation: Escalation of care including admission/observation considered Consult Healthcare Provider Management of the patient was discussed with: Hospitalist and Roving Technician Dr. Quintanilla hospitalist Dr. Cantu lens polisher hand Lab Data MDM Lab Attestation statement: I reviewed the patient's lab results. leukocytosis, likely secondary to vomiting, reactive in nature 03/08/25 06:44 03/08/25 06:42 Labs: Lab Results 03/08/25 03/08/25 Range/Units 06:42 06:44 WBC 16.8 H (4.8-10.8) X10*3/uL RBC 4.89 (4.60-5.80) X10*6/uL Hgb 14.2 (14.0-18.0) g/dl Hct 40.4 L (42.0-52.0) % MCV 82.6 (80.0-98.0) fL MCH 29.0 (27.0-33.0) pg MCHC 35.1 (31.0-36.0) g/dl RDW 13.0 (11.0-16.0) % Plt Count 370 (160-400) X10*3/uL MPV 9.2 L (9.4-12.4) fL Immature Gran % (Auto) 0.8 H (0.0-0.4) % Neut % (Auto) 84.8 H (45-73) % Lymph % (Auto) 9.3 L (20-40) % Dixon % (Auto) 2.9 (2-11) % Eos % (Auto) 2.0 (0-4) % Baso % (Auto) 0.2 (0-2) % Lymph # (Auto) 1.6 (1.2-4.9) X10*3/uL Dixon # (Auto) 0.5 (0.1-1.2) X10*3/uL Eos # (Auto) 0.3 (0.0-0.4) X10*3/uL Baso # (Auto) 0.0 (0.0-0.2) X10*3/uL Abs Immat Gran (auto) 0.13 H (0.00-0.03) X10*3/uL Absolute Neuts (auto) 14.3 H (2.0-8.3) x10*3/uL Absolute Nucleated RBC 0.000 (0.0-0.012) X10*3/uL Nucleated RBC % (auto) 0.0 (0.0-0.2) /100WBC Sodium 137 (135-145) mmol/L Potassium 3.7 (3.3-5.1) mmol/L Chloride 106 (96-108) mmol/L Carbon Dioxide 21 L (22-29) mmol/L Anion Gap 14 (12-20) BUN 11 (9-16) mg/dL Creatinine 0.68 (0.5-1.4) mg/dL Estim Creat Clear Calc 177.2 Estimated GFR > 60 Random Glucose 137 H (60-115) mg/dL Calcium 9.5 (8.4-10.2) mg/dL Magnesium 2.1 (1.6-2.6) mg/dL Total Bilirubin 0.7 (0.0-1.0) mg/dL Direct Bilirubin 0.2 (0.0-0.5) mg/dL AST 25 (5-37) U/L ALT 17 (0-40) U/L Alkaline Phosphatase 87 (39-117) U/L Troponin I High Sens < 2.7 (<3.5-35.0) ng/L Total Protein 7.7 (6.5-8.0) g/dL Albumin 4.5 (3.5-5.0) g/dL Lipase 27 (8-78) U/L Influenza Type A (PCR) NEGATIVE (Negative) Influenza Type B (PCR) NEGATIVE (Negative) RSV RNA Qual (PCR) NEGATIVE (Negative) SARS-CoV-2 RNA (RT-PCR) NEGATIVE (Negative) Independent Interpretation I performed an independent interpretation of an: EKG Interpretation: EKG was sinus bradycardia, ventricular rate 41 beats per minute, peaked T-waves in V2, V3, V4, no ST segment elevations or depressions, normal TN interval External Record Review External record reviewed: Prior outpatient labs Prescription Management I considered prescription management with: Other (atropine considered) Critical Care Time Critical Care Time Critical Care Time: Yes Total Critical Care Time: 32 Attestation: I have personally provided critical care time exclusive of time spent on separately billable procedures. Time includes review of lab data, radiology results, discussion with consultants, and monitoring for potential decompensation. Intervention performed as documented. Discharge Plan Discharge Clinical Impression: Gastroenteritis, Bradycardia, Pre-syncope Patient Disposition: Admitted As Inpatient Print Language: Welsh
[2025-03-08] MEDS: ondansetron HCL 4 MG/2 ML VIAL IVPUSH (08:54)
[2025-03-08] MEDS: Lactated Ringers 1,000 ML 999 ML IV ×3 (08:54→12:33)
--- NOTE | 2025-03-08 08:54 | PC.NURSE ---
This RN and addition RN in pt room, pt placed on engine monitor. HR noted to be bradycardic low 40s. Brigitte DELCID at bedside and aware of pt HR- no new orders at this time. Vitals updated in worklist, call marie within reach, all needs met at this time.
--- NOTE | 2025-03-08 09:07 | PC.NURSE ---
Pt HR noted to decrease to high 30s- Brigitte DELCID aware of HR. EKG placed by this RN d/t bradycardia. Pt vomiting at bedside during bradycardic episode. HR increases to mid 60s with repositiong in bed/talking with this RN. Care transferred to Blanca RN and Gela RN at this time.
--- NOTE | 2025-03-08 09:08 | ECG_ITS ---
Test Reason : bobbi Blood Pressure : */* mmHG Vent. Rate : 41 BPM Atrial Rate : 41 BPM P-R Int : 120 ms QRS Dur : 78 ms QT Int : 414 ms P-R-T Axes : 55 -6 37 degrees QTcB Int : 341 ms Marked sinus bradycardia Abnormal ECG When compared with ECG of 27-Dec-2024 09:07, T wave amplitude has increased in Anterior leads Referred By: Brigitte Stone Electronically Signed By: STANLEY LINDSEY
--- NOTE | 2025-03-08 09:23 | PC.NURSE ---
Pt moved from room 23 to room 4. Assumed care of pt and additional IV placed to RAC. ED provider at bedside, addional IVF started. Pt placed on bedside bridge painter, HR 40's-50's. EKG obtained. Pt a/o x 3, answering questions appropriately. Pt reports dizziness. Placed on pacer pads.
[2025-03-08 09:45] LABS: Troponin-I High Sensitivity < 2.7 ng/L (<3.5-35.0)
[2025-03-08 13:41] LABS: Magnesium 2.1 mg/dL (1.6-2.6)
--- NOTE | 2025-03-08 14:27 | PM.IMHP ---
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 He denied fever or chills. He has not been urinating much. He takes no daily medications but takes ibuprofen as needed occasionally. He did not report palpitations or chest pain. Denied contact with sick people or recent travel history. He denied alcohol abuse or illicit drug use. He smoked marijuana daily (1 joint/day). In the ED, he was found to have significant bradycardia (36-44 bpm). Blood pressure is normal, there is no fever and oxygen saturation is 100% on room air. Blood workup showed leukocytosis of 16.8. Hemoglobin is 14.2 and normal platelets liver. There are no significant electrolyte imbalances. CO2 is 21 and normal anion gap, 14. Renal function, lipase and LFTs are normal. Troponin is < 2.7. TSH is 0.60. ECG showed bradycardia (HR 41 bpm, QT prolonged 341 ms). Per chart review: Celiac disease panel is negative. ED tx: Zofran 4 mg IV, LR 3L Review of Systems Review of Systems: All 12 systems were reviewed and normal except as noted in HPI. [facility] Medical History Fatty liver Appendix abscess Surgical History Hx of appendectomy No pertinent past surgical history Social History Are you a primary college and career counselor to a significant other at home: No Do you presently have visiting nurse or other home services: No Alcohol intake: never Patient Tobacco Use Status: Never used Tobacco Smoked in Last 30 Days: Yes Use of substances other than those prescribed or required for medical reasons: Yes Substance Use Type: Marijuana Advance Directives: No Advance Directives Information Provided: Yes Do you have a plan to hurt others: No Plan Meds Allergies Allergy/AdvReac Type Severity Reaction Status Date / Time No Known Allergies Allergy Verified 03/08/25 06:35 Active Medications: Current Medications Enoxaparin Sodium (Enoxaparin Sodium 40 Mg/0.4 Ml Syringe) 40 mg SUBCUT Q24H [facility] Lactated Ringer's (Lr) 1,000 mls @ 100 mls/hr IVCONT .Q10H MARY Melatonin (Melatonin 3 Mg Tablet) 6 mg PO BEDTIME PRN PRN Reason: Insomnia Metoclopramide HCl (Metoclopramide Hcl 10 Mg/2 Ml Vial) 5 mg IVPUSH QID MARY Sodium Chloride (0.9 % Sodium Chloride Flush 3 Ml Syringe) 3 ml IVFLUSH QSHIFT MARY Home Medications ?Medication ?Instructions ?Recorded ?Confirmed ?Last Taken ?Type ibuprofen 600 mg tablet 600 mg PO Q6H PRN Headache 12/15/24 03/08/25 4 Days Ago History ~03/04/25 Physical Exam Vital Signs and Narrative: Vital Signs: Last Vital Signs Temp 97.9 F 03/08/25 09:35 Pulse 37 L 03/08/25 12:32 Resp 12 03/08/25 12:32 BP 136/82 03/08/25 12:32 Pulse Ox 99 03/08/25 12:32 O2 Del Method Room Air 03/08/25 12:32 BMI result Body Mass Index 30.3 Constitutional - Awake and Alert, No apparent distress. HEENT - PER, EOMI Heart - Bradycardia. No murmurs. Lungs - Normal lung expansion, Normal respiratory effort, No respiratory distress, CTA bilaterally Abdomen - NT / ND; increased BS; No rebound or guarding Extremities - no calf tenderness bilaterally, no swelling Musculoskeletal - Normal inspection, normal ROM Skin - Warm/Dry. No pallor. Neurological - Alert & oriented x3. Moving all extremities spontaneously. Psychological - Appropriate affect Results Labs 03/08/25 06:44 03/08/25 06:42 Labs: Laboratory Results - last 24 hr 03/08/25 03/08/25 06:42 06:44 MCV 82.6 MCH 29.0 MCHC 35.1 RDW 13.0 Plt Count 370 MPV 9.2 L Immature Gran % (Auto) 0.8 H Neut % (Auto) 84.8 H Lymph % (Auto) 9.3 L [place]atte % (Auto) 2.9 Eos % (Auto) 2.0 Baso % (Auto) 0.2 Lymph # (Auto) 1.6 [place]atte # (Auto) 0.5 Eos # (Auto) 0.3 Baso # (Auto) 0.0 Abs Immat Gran (auto) 0.13 H Absolute Neuts (auto) 14.3 H Absolute Nucleated RBC 0.000 Nucleated RBC % (auto) 0.0 Anion Gap 14 Estim Creat Clear Calc 177.2 Estimated GFR > 60 Random Glucose 137 H Calcium 9.5 Magnesium 2.1 Total Bilirubin 0.7 Direct Bilirubin 0.2 AST 25 ALT 17 Alkaline Phosphatase 87 Troponin I High Sens < 2.7 Total Protein 7.7 Albumin 4.5 Lipase 27 TSH 0.60 Influenza Type A (PCR) NEGATIVE Influenza Type B (PCR) NEGATIVE RSV RNA Qual (PCR) NEGATIVE SARS-CoV-2 RNA (RT-PCR) NEGATIVE Assessment and Plan (1) Bradycardia: Status: Acute (2) Cannabinoid hyperemesis syndrome: Status: Acute Plan Herrera Trujillo is a 30 y/o man admitted with: Hyperemesis cannabinoid syndrome. Admit to hospitalist service. Supportive therapy with antiemetics and IV fluids. Patient was advised to stop smoking marijuana. Bradycardia, likely secondary to chronic use of marijuana. Telemetry. Recheck troponin. DW cardiology by ED. Check TTE Leukocytosis, likely secondary to vomiting dehydration. No fever, hypotension or tachycardia Continue IV fluids. Continue to monitor. DVT prophylaxis: Lovenox Code status: Full Patient will need hospitalization for at least 2 midnights for hyperemesis cannabis syndrome treatment IV fluids antiemetic therapy and medicaid collection specialist for marked tachycardia. Quality Stroke Does the patient have a stroke diagnosis?: No VTE Prior VTE?: No VTE Risk Level:: Medical - moderate - high VTE Device Contraindication: Treatment Not Indicated VTE Drug Contraindication: N/A - Med Ordered
--- NOTE | 2025-03-08 14:44 | PHA.MEDREC ---
Addendum entered by Onesimo Pederson RP 03/08/25 14:51: Reviewed by [facility] Original Note: Pharmacy Consult ? Medication Reconciliation Pharmacy has completed the medication reconciliation. Spoke with pt and he confirmed he is only taking Ibuprofen 600mg tabs as needed for headaches and nothing else at this time.
[2025-03-08] MEDS: Metoclopramide HCl 10 MG/2 ML VIAL 5 MG IVPUSH ×2 (15:16→20:01)
[2025-03-08] MEDS: Lactated Ringers 1,000 ML 100 ML IVCONT (15:19)
[2025-03-08 15:35] LABS: Troponin-I High Sensitivity < 2.7 ng/L (<3.5-35.0)
--- NOTE | 2025-03-08 21:06 | PC.NURSE ---
Patient reports nausea and vomiting all day, just vomited about 200mls clear. Reports the reglan and zofran medications he was given earlier have not helped, patient asking if there are other nausea medications available for him. Dr. Nicole notified.
[2025-03-08] MEDS: Prochlorperazine Edisylate 10 MG/2 ML VIAL 5 MG IV (21:18)
[2025-03-09] MEDS: Lactated Ringers 1,000 ML 100 ML IVCONT ×2 (02:23→12:12)
[2025-03-09 03:25] VITALS: BP 126/60; PULSE 53; RESP 16; TEMP 37.1; O2SAT 97
[2025-03-09 06:51] LABS: MANUAL DIFF FLAG NO
[2025-03-09 06:57] LABS: Basophils Percent Auto 0.2 % (0-2); Eosinophils Absolute Auto 0.1 X10*3/uL (0.0-0.4); Eosinophils Percent Auto 0.5 % (0-4); Hematocrit 38.9 % (42.0-52.0); Hemoglobin 12.9 g/dl (14.0-18.0); Imm Gran Abs Auto 0.12 X10*3/uL (0.00-0.03); Imm Gran Pct Auto 0.7 % (0.0-0.4); Lymphocytes Absolute Auto 2.2 X10*3/uL (1.2-4.9); Lymphocytes Percent Auto 13.7 % (20-40); Mean Corpuscular HGB Conc 33.2 g/dl (31.0-36.0); Mean Corpuscular Hemoglobin 28.2 pg (27.0-33.0); Mean Corpuscular Volume 84.9 fL (80.0-98.0); Monocytes Absolute Auto 1.2 X10*3/uL (0.1-1.2); Monocytes Percent Auto 7.7 % (2-11); Neutrophils Absolute Auto 12.3 x10*3/uL (2.0-8.3); Neutrophils Percent Auto 77.2 % (45-73); Platelet Count 348 X10*3/uL (160-400); Red Blood Count 4.58 X10*6/uL (4.60-5.80); Red Cell Distribution Width 13.1 % (11.0-16.0)
--- NOTE | 2025-03-09 07:00 | CA_ITS ---
Transthoracic Echocardiogram Patient (Last, First, Middle): Herrera Trujillo, Gender: Male Date of : 1995 Age: 30 Procedure Date: 03/09/2025 Procedure Type: Transthoracic Echocardiogram Location: [facility] Height: 175.26 cm Weight: 92.99 kg BSA: 2.09 m2 Heart Rate: bpm BP: 136 / 82 mmHg [employer] Assistant Teacher: Referring MD: Millicent Fry MD Symptoms: Symptomatic bradycardia Study Quality: Adequate ECG Rhythm: Sinus Bradycardia Conclusions: - The left ventricular systolic function is normal. The calculated ejection fraction is 63% by biplane method. - No obvious valvular pathology seen on this study. Findings Left Ventricle Normal left ventricular cavity size. There is normal left ventricular wall thickness. The left ventricular systolic function is normal. The calculated ejection fraction is 63% by biplane method. There is no evidence of regional wall motion abnormalities. Diastolic function is normal for age. Right Ventricle Mildly increased right ventricular cavity size. There is normal right ventricular systolic function. Atria The left atrium is mildly dilated. The right atrium is normal in size. Aortic Valve There is a normal trileaflet aortic valve. There is no aortic valve stenosis. There is no aortic valve regurgitation. Mitral Valve The mitral valve appears normal. There is no mitral valve regurgitation. There is no mitral valve stenosis. Pulmonic Valve The pulmonic valve is likely normal. Tricuspid Valve Normal tricuspid valve structure. There is trace tricuspid valve regurgitation. There is no evidence of pulmonary hypertension. Great Vessels The asc aorta is normal in size. Venous The inferior vena cava is normal in size and collapses greater than 50% with inspiration. Pericardium/Pleural There is no evidence of pericardial effusion. Prior Study Comparison No prior study available for comparison. Recommendations, Care & Conclusions No obvious valvular pathology seen on this study. Measurements 2D Linear Measurements IVSd: 1.10 0.6-0.9/0.6-1.0 cm LVIDd: 4.77 3.9-5.3/4.2-5.9 cm LVIDd Index: 2.28 2.4-3.2/2.2-3.1 cm/m2 LVIDs: 3.06 2.0-3.6 cm LVPWd: 1.04 0.7-1.1 cm Ao Root: 3.10 2.1-3.5 cm LA Diam: 3.30 2.7-3.8/3.0-4.0 cm LAIDs Index: 1.58 1.5-2.3 cm/m2 LV Mass: 230.26 67-162/88-224 g LV Mass Index: 110.17 43-95/49-115 g/m2 LVOT Diam: 2.30 3.0+(-)1.3 cm 2D Systolic Function EF 4C: 56.00 >55% EF 2C: 66.30 >55% EF BiP: 62.80 >55% Mitral Valve MV Pk E: 1.05 MV PK A: 0.42 MV Decel Time: 175.00 E/A: 2.50 E'Lateral: 18.30 E'Medial: 9.57 E/E' Med: 11.00 E/E' Lat: 5.70 PHT: 51.00 MVA PHT: 4.31 Decel [place]: 5.98 Aortic Valve AoV Pk Harry: 1.52 AoV Mn Harry: 0.89 AoV VTI: 0.33 AoV Pk Grad: 9.00 Aov Mn Grad: 4.00 ELMA Cont.VTI: 2.87 LVOT LVOT Pk Harry: 1.00 LVOT Mn Harry: 0.65 LVOT VTI: 0.23 LVOT Pk Grad: 4.00 LVOT Mn Grad: 2.00 LVOT Diam: 2.30 LVOT Area: 4.15 Diastolic Function MV Pk E: 1.05 MV Pk A: 0.42 E/A: 2.50 E'Medial: 9.57 E/E' Med: 11.00 E' Laterial: 18.30 E/E' Lat: 5.70 Right Ventricle TAPSE (mm): 29.00 Tricuspid Valve TR Pk Harry: 1.49 TR Pk Grad: 9.00 RA Press: 3.00 RVSP: 12.00 Great Vessels Aorta Ao Root-2D: 3.10 2.0-3.7 cm Ao Asc: 3.10 2.1-3.4 cm Pulmonary Valve PV Pk Harry: 1.03 Peak PV Grad: 4.00 Updated in Other Vendor System with Status of Final Godwin Cantu MD electronically signed on 03/09/2025 11:39:29 AM with status of Final
[2025-03-09 07:21] LABS: Alanine Aminotransferase 16 U/L (0-40); Albumin Level 3.8 g/dL (3.5-5.0); Alkaline Phosphatase 70 U/L (39-117); Anion Gap 11 (12-20); Aspartate Amino Transferase 21 U/L (5-37); Bilirubin Total 1.3 mg/dL (0.0-1.0); Blood Urea Nitrogen 7 mg/dL (9-16); Calcium 8.9 mg/dL (8.4-10.2); Carbon Dioxide 24 mmol/L (22-29); Chloride 108 mmol/L (96-108); Creatinine Clr Calc Pharmacy 197.1; Estimated Glomerular Filt Rate > 60; Glucose Random 102 mg/dL (60-115); Magnesium 1.8 mg/dL (1.6-2.6); Potassium 3.4 mmol/L (3.3-5.1); Sodium 140 mmol/L (135-145); Total Protein 6.4 g/dL (6.5-8.0)
[2025-03-09 07:57] VITALS: BP 128/79; PULSE 56; RESP 18; TEMP 36.6; O2SAT 97
[2025-03-09] MEDS: Enoxaparin Sodium 40 MG/0.4 ML SYRINGE SUBCUT (08:27)
[2025-03-09] MEDS: 0.9 % Sodium Chloride Flush 3 ML SYRINGE IVFLUSH (08:27)
[2025-03-09] MEDS: Prochlorperazine Edisylate 10 MG/2 ML VIAL 5 MG IV (09:42)
--- NOTE | 2025-03-09 09:55 | P.CONCA_ITS ---
History of Present Illness History of Present Illness Date of Service: 03/09/25 Chief complaint: Bradycardia Narrative: This is a cardiology consultation regarding bradycardia. Patient himself does not have any known cardiac issues including any coronary disease, cardiomyopathy extra. 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 He was in the [place] area working in the heat wave over the last few days. Overnight, it seems that he had symptoms of feeling dizzy, nauseous, vomiting, diarrhea and in that context, he was seen in the emergency room. He was thought to be bradycardic on telemetry. Subsequently, admitted for further care. It seems that he has been getting a lot of IV fluids. Otherwise, he states he feels well today. No further symptoms. Much improved overall. Review of Systems 2 Review of Systems: Yes all other systems are reviewed and are negative Constitutional: Constitutional: Reports as per HPI and Reports no additional constitutional complaints Eyes: Eyes: Reports as per HPI and Denies no additional eye complaints ENT: Denies system reviewed and no additional complaints, except as documented and Reports as per HPI Cardiovascular: Cardiovascular: Reports as per HPI, Reports no additional cardiovascular complaints, Denies acrocyanosis, Denies cool extremities, Denies chest pain, Denies leg edema, Denies lightheadedness, Denies palpitations and Denies dyspnea Respiratory: Respiratory: Reports as per HPI, Denies no additional respiratory complaints and Denies dyspnea Gastrointestinal: Gastrointestinal: Reports as per HPI and Denies no additional gastrointestinal complaints Genitourinary: Genitourinary: Reports no additional male genitourinary complaints and Reports as per HPI Musculoskeletal: Musculoskeletal: Reports no additional musculoskeletal complaints and Reports as per HPI Integumentary/Breasts: Skin/Breast: Reports system reviewed and no additional complaints, except as docu Neurologic: Reports system reviewed and no additional complaints, except as documented and Reports as per HPI Psychiatric: Psychiatric: Reports no additional psychiatric complaints and Reports as per HPI Endocrine: Endocrine: Reports no additional endocrine complaints, Reports as per HPI and Denies palpitations Hematologic/Lymphatic: Hematologic/Lymphatic: Reports no additional hematologic/lymphatic complaints and Reports as per HPI Allergic/Immunologic: Allergic/Immunologic: Reports no additional allergic/immunologic complaints and Reports as per HPI [facility] Past Medical History Medical History Fatty liver Appendix abscess Family History Family History (Updated 03/09/25 @ 09:57 by oGdwin Cantu MD) Father Myocardial infarction Mother Hypertension Surgical History Surgical History Hx of appendectomy No pertinent past surgical history Social History Social History Household Members: Family Housing: House Are you a primary vp care management to a significant other at home: No Do you presently have visiting nurse or other home services: No Alcohol intake: never Patient Tobacco Use Status: Never used Tobacco Substance Use Type: Marijuana Meds Allergies Allergy/AdvReac Type Severity Reaction Status Date / Time No Known Allergies Allergy Verified 03/08/25 06:35 Active Medications: Current Medications Acetaminophen (Acetaminophen 325 Mg Tablet) 975 mg PO Q6H PRN PRN Reason: Pain, Mild 1-3,fever,headache Enoxaparin Sodium (Enoxaparin Sodium 40 Mg/0.4 Ml Syringe) 40 mg SUBCUT Q24H [facility] Last Admin: 03/09/25 08:27 Dose: 40 mg Hydromorphone HCl (Hydromorphone Hcl 0.5 Mg/0.5 Ml Syringe) 0.5 mg IVPUSH Q4H PRN; Protocol PRN Reason: Pain, Severe (Pain Scale 7-10) Lactated Ringer's (Lr) 1,000 mls @ 100 mls/hr IVCONT .Q10H [facility] Last Admin: 03/09/25 02:23 Dose: 100 mls/hr Melatonin (Melatonin 3 Mg Tablet) 6 mg PO BEDTIME PRN PRN Reason: Insomnia Metoclopramide HCl (Metoclopramide Hcl 10 Mg/2 Ml Vial) 5 mg IVPUSH QID [facility] Last Admin: 03/09/25 08:26 Dose: Not Given Prochlorperazine Edisylate (Prochlorperazine Edisylate 10 Mg/2 Ml Vial) 5 mg IV Q4H PRN PRN Reason: Nausea and Vomiting Last Admin: 03/09/25 09:42 Dose: 5 mg Sodium Chloride (0.9 % Sodium Chloride Flush 3 Ml Syringe) 3 ml IVFLUSH QSHIFT [facility] Last Admin: 03/09/25 08:27 Dose: 3 ml Home Medications ?Medication ?Instructions ?Recorded ?Confirmed ?Last Taken ?Type ibuprofen 600 mg tablet 600 mg PO Q6H PRN Headache 0 12/15/24 03/08/25 4 Days Ago History ~03/04/25 Physical Exam 2 Vital Signs: Vital Signs: Last Vital Signs Temp 97.9 F 03/09/25 07:57 Pulse 56 03/09/25 07:57 Resp 18 03/09/25 07:57 BP 128/79 03/09/25 07:57 Pulse Ox 97 03/09/25 07:57 O2 Del Method Room Air 03/09/25 07:57 BMI result Body Mass Index 32.3 Const: General: comfortable and no acute distress O rientation/consciousness: patient oriented x3 HEENT: Other: Unremarkable Head: Yes normal to inspection Neck: Neck: Yes normal visual inspection Chest: Chest palpation & inspection: normal inspection of the chest Resp: Auscultation: clear to auscultation bilaterally Cardio: Palpation: normal PMI Heart sounds: S1 normal heart sound present, S2 normal heart sound present, no gallops, no murmurs and no rubs GI: Palpation (GI): Soft to palpation Back/Spine/Pelvis: Other: unremarkable Skin: General skin exam: no rashes or lesions noted Neuro: General: patient oriented x3 Extrem: General: Yes normal to inspection Psych: Mental Status: mental status grossly normal Objective Labs and Meds 03/09/25 06:21 03/09/25 06:21 Lab results: Laboratory Results - last 24 hr 03/08/25 03/08/25 03/09/25 06:42 14:53 06:21 WBC 16.0 H RBC 4.58 L Hgb 12.9 L Hct 38.9 L MCV 84.9 MCH 28.2 MCHC 33.2 RDW 13.1 Plt Count 348 MPV 10.0 Immature Gran % (Auto) 0.7 H Neut % (Auto) 77.2 H Lymph % (Auto) 13.7 L [place] % (Auto) 7.7 Eos % (Auto) 0.5 Baso % (Auto) 0.2 Lymph # (Auto) 2.2 [place] # (Auto) 1.2 Eos # (Auto) 0.1 Baso # (Auto) 0.0 Abs Immat Gran (auto) 0.12 H Absolute Neuts (auto) 12.3 H Absolute Nucleated RBC 0.000 Nucleated RBC % (auto) 0.0 Sodium 140 Potassium 3.4 Chloride 108 Carbon Dioxide 24 Anion Gap 11 L BUN 7 L Creatinine 0.63 Estim Creat Clear Calc 197.1 Estimated GFR > 60 Random Glucose 102 Calcium 8.9 D Magnesium 2.1 1.8 Total Bilirubin 1.3 H AST 21 ALT 16 Alkaline Phosphatase 70 Troponin I High Sens < 2.7 Total Protein 6.4 L Albumin 3.8 TSH 0.60 ECG Interpretation: Initial EKG with sinus bradycardia at 41/Min. No ischemic changes. Normal DC and corrected QT. in a prior EKG from December, sinus bradycardia at 49/Min. In 2023, EKG with sinus bradycardia at 59/Min. Imaging Radiologist's impression: Impressions Chest X-Ray 03/08/25 14:48 IMPRESSION: Normal chest. Electronically signed by: Neymar Chauhan MD 03/08/2025 03:02 PM EDT RP Assessment and Plan (1) Bradycardia: Status: Acute Plan Initial EKG showed sinus bradycardia as described above. On telemetry, he is still has bradycardia but overall the rate is much improved. It somewhere in the 40s/50s. No evidence of any sinus arrest type phenomenon or high-grade AV blocks. There is clear sinus arrhythmias suggestive of high vagal tone. Based on his usual high intensity work which he is able to perform with no limitations, do not believe this sinus bradycardia is of any major significance at this time. His symptoms are primarily because of working in the heat wave, potentially, dehydration and additionally GI symptoms superimposed on that. He has already feeling much improved after hydration. Hence, can hold off on any inpatient workup. Follow up in clinic. Based on how he feels, we will plan if he needs anything further. Procedures Date of Service Date of Service: 03/09/25
--- NOTE | 2025-03-09 11:12 | PM.DS ---
DS: Providers Provider Date of Service: 03/09/25 Date of admission: 03/08/25 13:53 Date of discharge: 03/09/25 Primary care physician: [facility] Consults: 03/08/25 13:02 Consult to Cardiology Stat Consulting Provider: [facility] Reason for consultation: symptomatic bradycardia Has provider been notified: Yes 03/08/25 14:25 Consult to Cardiology Routine Consulting Provider: [facility] Reason for consultation: Bradycardia Has provider been notified: Yes Attending physician on discharge: Bryan Lujan Discharging clinician: Fatimah Mack DS: Diagnosis Discharge Diagnosis (1) Bradycardia: Status: Acute DS: Summary Hospital Course Hospital Course: From H&P on the day of admission Herrera Trujillo is a 30 years old man past medical history significant for prior visits to the ED due to GI symptoms associated with bradycardia presents to the emergency department today with similar symptoms including multiple events of nonbloody vomiting, upper abdominal pain and nonbloody diarrhea; also reported shortness on breath 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 He denied fever or chills. He has not been urinating much. He takes no daily medications but takes ibuprofen as needed occasionally. He did not report palpitations or chest pain. Denied contact with sick people or recent travel history. He denied alcohol abuse or illicit drug use. He smoked marijuana daily (1 joint/day). In the ED, he was found to have significant bradycardia (36-44 bpm). Blood pressure is normal, there is no fever and oxygen saturation is 100% on room air. Blood workup showed leukocytosis of 16.8. Hemoglobin is 14.2 and normal platelets liver. There are no significant electrolyte imbalances. CO2 is 21 and normal anion gap, 14. Renal function, lipase and LFTs are normal. Troponin is < 2.7. TSH is 0.60. ECG showed bradycardia (HR 41 bpm, QT prolonged 341 ms). Per chart review: Celiac disease panel is negative. ED tx: Zofran 4 mg IV, LR 3L Abdominal pain with nausea and vomiting. Admitted for bowel rest, IV fluid and pain management. All symptoms resolved. Patient is tolerating a diet and is eager to return home Bradycardia. EKG showing sinus bradycardia. Heart rate remaining somewhere in the 40s/50s. No high-grade AV blocks. Seen by Cardiology who felt likely suggestive of high vagal tone. Blood pressure has remained stable. No inpatient workup required at this time. Can follow-up outpatient in the Cardiology Clinic. Time Attestation Discharge Coordination Time (in mins): 32 Quality: Safe Use of Opioids Does Pt have an Active Cancer Diagnosis on the Problem List?: No Quality: Stroke Does the patient have a stroke diagnosis?: No Physical Exam Vital Signs: Vital Signs: Last Vital Signs Temp 97.9 F 03/09/25 07:57 Pulse 56 03/09/25 07:57 Resp 18 03/09/25 07:57 BP 128/79 03/09/25 07:57 Pulse Ox 97 03/09/25 07:57 O2 Del Method Room Air 03/09/25 07:57 BMI result Body Mass Index 32.3 Const: General: cooperative, comfortable, no acute distress, alert and awake Nutritional Appearance: average body habitus Orientation/consciousness: patient oriented x3 Resp: Effort & Inspection: normal respiratory effort, able to speak in complete sentences, no respiratory distress and no use of accessory muscles Cardio: Rate: regular rate Neuro: General: patient oriented x3, moves all extremities and CN's II-XI intact bilaterally DS: Data Data Completed and Pending Labs on day of discharge: Laboratory Results - last 24 hr 03/08/25 03/08/25 03/09/25 06:42 14:53 06:21 WBC 16.0 H RBC 4.58 L Hgb 12.9 L Hct 38.9 L MCV 84.9 MCH 28.2 MCHC 33.2 RDW 13.1 Plt Count 348 MPV 10.0 Immature Gran % (Auto) 0.7 H Neut % (Auto) 77.2 H Lymph % (Auto) 13.7 L [place] % (Auto) 7.7 Eos % (Auto) 0.5 Baso % (Auto) 0.2 Lymph # (Auto) 2.2 [place] # (Auto) 1.2 Eos # (Auto) 0.1 Baso # (Auto) 0.0 Abs Immat Gran (auto) 0.12 H Absolute Neuts (auto) 12.3 H Absolute Nucleated RBC 0.000 Nucleated RBC % (auto) 0.0 Sodium 140 Potassium 3.4 Chloride 108 Carbon Dioxide 24 Anion Gap 11 L BUN 7 L Creatinine 0.63 Estim Creat Clear Calc 197.1 Estimated GFR > 60 Random Glucose 102 Calcium 8.9 D Magnesium 2.1 1.8 Total Bilirubin 1.3 H AST 21 ALT 16 Alkaline Phosphatase 70 Troponin I High Sens < 2.7 Total Protein 6.4 L Albumin 3.8 TSH 0.60 Discharge Plan Discharge Anticipated Discharge Date/Time: 03/09/25 11:22 Patient Disposition: Home, Self-Care Discharge Diagnosis: abdominal pain with nausea and vomiting bradycardia Referrals: Sonia Webb MD [Physician, Gastroenterology] - 1 Week Center,[facility] [Primary Care Provider, Medical] - 1 Week Godwin Cantu MD [Physician, Cardiology] - 1 Week Discharge Medications: Continued ibuprofen 600 mg Tablet 600 mg PO Q6H PRN (Reason: Headache) Discharge Orders: Discharge Order (Routine); Ordered 03/09/25 Ordered By: Fatimah Mack Activity on Discharge: As tolerated Stand Alone Forms: Patient Portal Discharge page Print Language: [place] Citizen Other Ambulatory Orders: Complete Blood Count no Diff (Routine) Timeframe: 1 Week Facility: [facility] - Location: Laboratory Ordered By: Fatimha Mack Care Plan Goals: See below Health Concerns: Abdominal pain with nausea and vomiting-resolved Bradycardia Plan of Treatment: No further hospital workup required for bradycardia, recommend outpatient follow-up in the cardiology clinic stay well hydrated while working in the sun or working in hot temperatures outpatient follow up with your primary Social Work Professor lyme and celiac panel pending at the time of discharge repeat labs in a week to ensure white blood cell count is trending down Assessment: See discharge summary Discharge Date/Time: 03/09/25 14:22
[2025-03-09 11:20] VITALS: BP 121/70; PULSE 58; RESP 16; TEMP 37.4; O2SAT 97
--- NOTE | 2025-03-09 11:56 | MHC.CM.PN ---
EMR REVIEWED, PT W/BRADYCARDIA, N/V, CM MET W/PT WHO REPORTS HE LIVES W/HIS MOTHER MARLENY WHO IS ALSO AT BEDSIDE W/PT'S SISTER, PT IS FULLY INDEP, NO DME/SERVICES, GOAL FOR DC IS HOME SELF CARE. PT VERIFIES PCP IS AT [facility] HOWEVER DOES NOT RECALL NAME AND NEITHER DOES PT'S MOTHER, PT EDUCATED ON AND COMPLETES A HCP NAMING HIM MOTHER MARLENY TAYLOR HIS [facility] AND FATHER DOUG NEGRETE [phone] HIS ALTERNATE, PT PROVIDED W/EDUCATIONAL HANDOUT AND ORIGINAL, COPY UPLOADED TO [facility] AND PLACED IN CHART. PER HOSPITALIST PT WILL LIKELY BE MEDICALLY CLEARED FOR DC HOME SELF-CARE W/FAMILY FOR TRANSPORT
[2025-03-09 12:03] LABS: Lyme Abs Screen <0.90 index
[2025-03-09 22:24] LABS: A. Phagocytphilium DNA,RT-PCR NOT DETECTED (NOT DETECTED); Babesia Microti DNA, RT-PCR NOT DETECTED (NOT DETECTED); Borrelia Miyamotoi,DNA RT-PCR NOT DETECTED (NOT DETECTED); E.Chaffeensis DNA RT-PCR NOT DETECTED (NOT DETECTED); Lyme(Borrelia ssp)DNA RT-PCR NOT DETECTED (NOT DETECTED)
== END 2025-03-09 14:22 | disposition home or self-care (01) | DRG 201 ==
LOC: HO.ED 13:10 → HO.EDOVER 14:07 → HO.IMC 16:44
PROVIDERS: Physician Assistant; Admitting Provider Internal Medicine; Emergency Provider Emergency Medicine; PCP Internal Medicine Geriatric Medicine; Visit Provider Physician Assistant Medical
DX: R00.1 Bradycardia, unspecified (principal); E86.0 Dehydration; F12.90 Cannabis use, unspecified, uncomplicated; R11.2 Nausea with vomiting, unspecified; Z20.822 Contact with and (suspected) exposure to COVID-19
CPT/HCPCS: 0241U; 36415; 71045; 80048; 80053; 80076; 83690; 83735; 84443; 84484; 85025; 86617; 86618; 87468; 87469; 87478; 87484; 87798; 93005; 93306; 99285; J0737; J1650; J2405; J2765; J7120

== ENCOUNTER 2025-03-08 13:53 | Outpatient (BNV) | payer MEDICAID, SELFPAY | END 2025-03-09 07:00 | PROVIDERS: Admitting Provider Internal Medicine; Emergency Provider Emergency Medicine; Visit Provider Internal Medicine | DX: I51.7 Cardiomegaly (principal) | CPT/HCPCS: 93306 ==

== ENCOUNTER 2025-03-08 13:53 | Outpatient (BNV) | payer MEDICAID, SELFPAY | END 2025-03-08 14:48 | PROVIDERS: Admitting Provider Internal Medicine; Emergency Provider Emergency Medicine; Visit Provider Radiology Diagnostic Radiology | DX: R00.1 Bradycardia, unspecified (principal) | CPT/HCPCS: 71045 ==

== ENCOUNTER → 2025-03-08 13:53 | Outpatient (BNV) | payer MEDICAID, SELFPAY | PROVIDERS: Admitting Provider Internal Medicine; Emergency Provider Emergency Medicine; Visit Provider Internal Medicine | DX: R00.1 Bradycardia, unspecified (principal); R11.2 Nausea with vomiting, unspecified; F12.90 Cannabis use, unspecified, uncomplicated | CPT/HCPCS: 99223; 99239 ==

== ENCOUNTER → 2025-03-08 13:53 | Outpatient (BNV) | payer MEDICAID, SELFPAY | PROVIDERS: Admitting Provider Internal Medicine; Emergency Provider Emergency Medicine; Visit Provider Internal Medicine | DX: R00.1 Bradycardia, unspecified (principal) | CPT/HCPCS: 99223 ==

== ENCOUNTER 2025-03-10 05:56 | Emergency (ER) | payer MEDICAID, SELFPAY ==
[2025-03-10] VITALS (7 sets, daily range): BP systolic 96–147; BP diastolic 48–84; PULSE 48–80; RESP 16–20; TEMP 36.9–37.4; O2SAT 100; BMI 30.3
--- NOTE | 2025-03-10 06:21 | PC.NURSE ---
assumed care of pt. Pt reports leaving yesterday at 3 pm and symptoms returned this morning at 4 am. n/v started at 4 am, vomit 3x. Pt states feeling dizzy, light headed and weak. Pt was able to tolerate food well until 4 am when he was woken up with nausea and vomit. Pt denies pain. Respirations even and unlabored.
--- NOTE | 2025-03-10 07:21 | ED.GENADULT ---
HPI - General Adult General Chief complaint: Nausea/Vomiting/Diarrhea Stated complaint: n/v Time Seen by Provider: 03/10/25 07:10 Source: patient Mode of arrival: ambulatory Limitations: no limitations History of Present Illness ED Provider: DR. Mane HPI narrative: 30-year-old male past medical history significant for ED visit due to GI symptoms including nausea, vomiting, nonbloody non watery loose stool, abdominal cramps, patient found to be in significant bradycardia patient was hospitalized for severe bradycardia and had inpatient cardiology consultation and transthoracic echocardiogram which was mostly unremarkable. who diagnosed the patient bradycardia secondary to working in the heat wave with dehydration and GI symptoms patient was discharged from the hospital on 04/08 after reported improvement of his symptoms patient woke up this morning with same symptoms feeling dizzy, nausea, vomiting, abdominal cramps. feeling he is going to pass out. , patient do not feel dehydrated. Patient declined using any medication, admit to smoking marijuana on a daily basis last smoke was 4 days ago. No CP, no SOB Related Data Home Medications ?Medication ?Instructions ?Recorded ?Confirmed ibuprofen 600 mg tablet 600 mg PO Q6H PRN Headache 12/15/24 03/08/25 Allergies Allergy/AdvReac Type Severity Reaction Status Date / Time No Known Allergies Allergy Verified 03/10/25 05:58 Review of Systems Review of Systems: All other systems are reviewed and are negative Constitutional: Reports as per HPI and Reports no additional constitutional complaints Eyes: Reports as per HPI and Reports no additional eye complaints Reports system reviewed and no additional complaints, except as documented Cardiovascular: Reports as per HPI and Reports no additional cardiovascular complaints Respiratory: Reports as per HPI and Reports no additional respiratory complaints Gastrointestinal: Reports as per HPI and Reports no additional gastrointestinal complaints Genitourinary: Reports no additional female genitourinary complaints Musculoskeletal: Reports no additional musculoskeletal complaints Skin/Breast: Reports system reviewed and no additional complaints, except as docu Psychiatric: Reports no additional psychiatric complaints Endocrine: Reports no additional endocrine complaints Hematologic/Lymphatic: Reports no additional hematologic/lymphatic complaints Allergic/Immunologic: Reports no additional allergic/immunologic complaints Reports system reviewed and no additional complaints, except as documented and Reports Abnormal speech present [facility] Past Medical History Medical History Fatty liver Appendix abscess Surgical History Hx of appendectomy No pertinent past surgical history Family History Family History Father Myocardial infarction Mother Hypertension Social History Social History Household Members: Family Housing: House Are you a primary senior care provider to a significant other at home: No Do you presently have visiting nurse or other home services: No Alcohol intake: never Patient Tobacco Use Status: Never used Tobacco Substance Use Type: Marijuana Advance Directives: No Advance Directives Information Provided: Yes service: No Physical Exam ED Vital Signs: Vital Signs - 24 hr 03/10/25 05:56 03/10/25 07:27 03/10/25 07:45 Temperature 99.3 F Pulse Rate 53 54 80 Respiratory Rate 20 Blood Pressure 140/79 H 96/48 L 101/59 L Pulse Oximetry 100 Oxygen Delivery Method Room Air 03/10/25 07:46 03/10/25 07:48 Temperature Pulse Rate 54 65 Respiratory Rate Blood Pressure 102/58 L 111/68 Pulse Oximetry Oxygen Delivery Method BMI result Body Mass Index 30.3 Vital signs have been reviewed and appear to be correct. Blood pressure elevated. Heart rate normal. Respiratory rate normal. Temperature normal. Oxygen saturation normal. Appearance: Alert. Oriented X3. No acute distress. Head: Normal external exam. Normocephalic. Atraumatic. No Easley signs noted. No raccoon eyes noted Eyes: PERRLA. EOMI. Conjunctiva and sclera normal. Eyelids normal. ENT: TM's Normal. Pharynx normal. Uvula midline. Moist mucous membranes. No trismus noted. No drooling noted. No muffled voice noted. Neck: Normal inspection. Neck supple. FROM. No adenopathy. Thyroid Normal. No meningeal signs. No neck mass noted. CVS: Normal heart rate and rhythm. Heart sound normal. No murmurs noted. Pulses normal throughout. Respiratory: No respiratory distress. Painless inspiration. Breath sounds normal. No wheezes/rales/rhonchi noted. Chest nontender. No accessory muscle usage noted or decreased air movement noted. Abdomen: Soft and nontender. Bowel sounds normal in all 4 quadrants. No distention noted. No organomegaly noted. No visible injury noted. Back: No CVA tenderness. Full range of motion noted. Skin: Skin warm and dry. Normal skin color. Normal skin turgor. No rashes/lesions/lacerations noted. Extremities: No lower extremity edema. Extremities exhibit normal range of motion. Extremities nontender. Neuro: Oriented X 3. Cranial nerve exam: II-XII are grossly intact No motor deficit. No sensory deficit. Reflexes normal. Course Reevaluation(s) Reevaluation #1: Symptomatic bradycardia, recent cardiac workup and hospitalization was unremarkable, patient returned for same, case discussed with Dr. Cantu and recommend admission and cardiac monitoring. Accepted by Dr. Fraser Time: 09:16 Reevaluation #2: patient now want to leave after fluids he feels better, AAO x3, no SI, no HI, fully understand risk of leaving AMA including but not limited to severe bradycardia, asystole, severe dysrhythmia, and/or sudden .. Time: 09:31 Medications Administered Discontinued Medications Generic Name Dose Route Start Last Admin Trade Name Freq PRN Reason Stop Dose Admin Lactated Ringer's 1,000 mls @ 999 mls/hr 03/10/25 07:30 03/10/25 09:02 Lr IV 03/10/25 08:30 Infused .Q1H1M MARY Infusion Medical Decision Making Differential Diagnosis Differential Diagnoses: The differential diagnosis associated with the presentation includes ( dehydration, electrolyte derangement, hypovolemia, bradycardia, severe anemia, dysrhythmia.) Admission/Observation Consideration of admission/observation: Escalation of care including admission/observation considered Consult Healthcare Provider Management of the patient was discussed with: Hospitalist ( Dr. Fraser) and Manager [place] ( Dr. Cantu) Lab Data [facility] Lab Attestation statement: I reviewed the patient's lab results. 03/10/25 07:23 03/10/25 07:23 Labs: Lab Results 03/10/25 Range/Units 07:23 WBC 12.7 H (4.8-10.8) X10*3/uL RBC 4.21 L (4.60-5.80) X10*6/uL Hgb 12.2 L (14.0-18.0) g/dl Hct 35.7 L (42.0-52.0) % MCV 84.8 (80.0-98.0) fL MCH 29.0 (27.0-33.0) pg MCHC 34.2 (31.0-36.0) g/dl RDW 13.1 (11.0-16.0) % Plt Count 300 (160-400) X10*3/uL MPV 9.3 L (9.4-12.4) fL Immature Gran % (Auto) 0.8 H (0.0-0.4) % Neut % (Auto) 81.9 H (45-73) % Lymph % (Auto) 11.6 L (20-40) % Bucks % (Auto) 4.9 (2-11) % Eos % (Auto) 0.6 (0-4) % Baso % (Auto) 0.2 (0-2) % Lymph # (Auto) 1.5 (1.2-4.9) X10*3/uL Bucks # (Auto) 0.6 (0.1-1.2) X10*3/uL Eos # (Auto) 0.1 (0.0-0.4) X10*3/uL Baso # (Auto) 0.0 (0.0-0.2) X10*3/uL Abs Immat Gran (auto) 0.10 H (0.00-0.03) X10*3/uL Absolute Neuts (auto) 10.4 H (2.0-8.3) x10*3/uL Absolute Nucleated RBC 0.000 (0.0-0.012) X10*3/uL Nucleated RBC % (auto) 0.0 (0.0-0.2) /100WBC Sodium 138 (135-145) mmol/L Potassium 3.1 L (3.3-5.1) mmol/L Chloride 107 (96-108) mmol/L Carbon Dioxide 24 (22-29) mmol/L Anion Gap 10 L (12-20) BUN 8 L (9-16) mg/dL Creatinine 0.71 (0.5-1.4) mg/dL Estim Creat Clear Calc 169.7 Estimated GFR > 60 Random Glucose 131 H (60-115) mg/dL Calcium 8.5 (8.4-10.2) mg/dL Total Bilirubin 0.6 (0.0-1.0) mg/dL AST 21 (5-37) U/L ALT 17 (0-40) U/L Alkaline Phosphatase 67 (39-117) U/L Total Protein 6.2 L (6.5-8.0) g/dL Albumin 3.7 (3.5-5.0) g/dL Independent Interpretation I performed an independent interpretation of an: EKG ( sinus bradycardia at 47 beats per minutes, normal intervals, no ST-T changes.) Discharge Plan Discharge Clinical Impression: Symptomatic sinus bradycardia Patient Disposition: Left Against Medical Advice Instructions: Bradycardia (ED) Prescriptions: No Action ibuprofen 600 mg Tablet 600 mg PO Q6H PRN (Reason: Headache) Referrals: Godwin Cantu MD [Physician, Cardiology] Stand Alone Forms: Against Medical Advice Print Language: Syriac
[2025-03-10 07:27] LABS: MANUAL DIFF FLAG NO
--- NOTE | 2025-03-10 07:27 | PC.NURSE ---
patient a&ox3, iv inserted, labs drawn, pt stating currently he has no pain. vitals stable, pt awaiting provider evaluation
[2025-03-10 07:28] LABS: Basophils Percent Auto 0.2 % (0-2); Eosinophils Absolute Auto 0.1 X10*3/uL (0.0-0.4); Eosinophils Percent Auto 0.6 % (0-4); Hematocrit 35.7 % (42.0-52.0); Hemoglobin 12.2 g/dl (14.0-18.0); Imm Gran Pct Auto 0.8 % (0.0-0.4); Lymphocytes Absolute Auto 1.5 X10*3/uL (1.2-4.9); Lymphocytes Percent Auto 11.6 % (20-40); Mean Corpuscular HGB Conc 34.2 g/dl (31.0-36.0); Mean Corpuscular Volume 84.8 fL (80.0-98.0); Mean Platelet Volume 9.3 fL (9.4-12.4); Monocytes Absolute Auto 0.6 X10*3/uL (0.1-1.2); Monocytes Percent Auto 4.9 % (2-11); Neutrophils Absolute Auto 10.4 x10*3/uL (2.0-8.3); Neutrophils Percent Auto 81.9 % (45-73); Platelet Count 300 X10*3/uL (160-400); Red Blood Count 4.21 X10*6/uL (4.60-5.80); Red Cell Distribution Width 13.1 % (11.0-16.0); White Blood Count 12.7 X10*3/uL (4.8-10.8)
--- NOTE | 2025-03-10 07:30 | ECG_ITS ---
Test Reason : FEELING NEAR SYNCOPAL Blood Pressure : */* mmHG Vent. Rate : 47 BPM Atrial Rate : 47 BPM P-R Int : 148 ms QRS Dur : 82 ms QT Int : 390 ms P-R-T Axes : 63 -2 25 degrees QTcB Int : 345 ms Sinus bradycardia Otherwise normal ECG When compared with ECG of 08-Mar-2025 09:14, Increase in ventricular rate Referred By: Dayton Mane Electronically Signed By: STANLEY LINDSEY
[2025-03-10 07:50] LABS: Alanine Aminotransferase 17 U/L (0-40); Albumin Level 3.7 g/dL (3.5-5.0); Alkaline Phosphatase 67 U/L (39-117); Anion Gap 10 (12-20); Aspartate Amino Transferase 21 U/L (5-37); Bilirubin Total 0.6 mg/dL (0.0-1.0); Blood Urea Nitrogen 8 mg/dL (9-16); Calcium 8.5 mg/dL (8.4-10.2); Carbon Dioxide 24 mmol/L (22-29); Chloride 107 mmol/L (96-108); Creatinine Clr Calc Pharmacy 169.7; Estimated Glomerular Filt Rate > 60; Glucose Random 131 mg/dL (60-115); Potassium 3.1 mmol/L (3.3-5.1); Sodium 138 mmol/L (135-145); Total Protein 6.2 g/dL (6.5-8.0)
[2025-03-10] MEDS: Lactated Ringers 1,000 ML 999 ML IV (08:01)
== END 2025-03-10 10:28 | disposition left against medical advice (07) ==
PROVIDERS: Emergency Provider Emergency Medicine
DX: R00.1 Bradycardia, unspecified (principal); R11.2 Nausea with vomiting, unspecified; F12.90 Cannabis use, unspecified, uncomplicated; R10.9 Unspecified abdominal pain; R19.7 Diarrhea, unspecified; Z79.899 Other long term (current) drug therapy
CPT/HCPCS: 36415; 80053; 85025; 93005; 96360; 99285; J7120

== ENCOUNTER → 2025-03-10 07:30 | Outpatient (BNV) | payer MEDICAID, SELFPAY | PROVIDERS: Emergency Provider Emergency Medicine; Visit Provider Internal Medicine | DX: R00.1 Bradycardia, unspecified (principal) | CPT/HCPCS: 93010 ==

== ENCOUNTER 2025-07-21 10:37 | Emergency (ER) | payer MEDICAID, SELFPAY ==
--- NOTE | ~2025-07-21 | CT_ITS ---
CLINICAL HISTORY: nv Exam: Contrast-enhanced CT abdomen and pelvis with multiplanar reformats. Comparison: None. Findings: CT abdomen: Lung bases are clear. Liver is free of focal lesions and ductal dilatation. Gallbladder appears unremarkable. Spleen is unremarkable. Pancreas and adrenal glands appear unremarkable. Kidneys appear unremarkable. No free intraperitoneal fluid or retroperitoneal masses or adenopathy. Abdominal aorta is normal caliber. Bowel loops reveal no abnormal wall thickening or distention. The appendix appears to be surgically absent. No CT evidence of appendicitis. No significant diverticular disease. CT pelvis: No pelvic masses, fluid or adenopathy. Urinary bladder is free of gross filling defects. Prostate gland and seminal vesicles appear unremarkable. There is trace nonspecific stranding of the subcutaneous soft tissues in the left inguinal region (4; 614-670). This has nonspecific although could suggest slight cellulitis. Osseous structures reveal no destructive osseous lesions. Impression: 1. No acute abnormality or CT explanation for reported history of nausea and vomiting. 2. Slight stranding of the subcutaneous soft tissues involving left inguinal region is nonspecific although could suggest minimal cellulitis. This document has been electronically signed by: Melvin Smith MD on 07/21/2025 15:52:58
--- NOTE | 2025-07-21 10:39 | ECG_ITS ---
Test Reason : CP Blood Pressure : */* mmHG Vent. Rate : 42 BPM Atrial Rate : 42 BPM P-R Int : 142 ms QRS Dur : 82 ms QT Int : 378 ms P-R-T Axes : 33 2 50 degrees QTcB Int : 315 ms Marked sinus bradycardia Abnormal ECG When compared with ECG of 10-Mar-2025 07:32, No significant change was found Referred By: Generic ED Physician Electronically Signed By: Gigi Stevens
[2025-07-21 10:58] VITALS: BP 142/91; PULSE 46; RESP 18; TEMP 36.7; O2SAT 100; BMI 30.5
--- OUTSIDE RECORDS SUMMARY | 2025-07-21 11:36 | XMS_ITS | Clinical Summary ---
Author Organization [employer] Address [address] [place] [address] Care Team Providers Care Digital Campaign Specialist Name Role Phone Linnette Oneill FUEL OIL CLERK Primary Care Provider Allergies No known active allergies Medications No known medications Active Problems Problem Noted Date Diagnosed Date Bradycardia 03/09/2025 Elevated liver function tests 05/29/2024 Assessment & [...] Encounters Date Type Department Care Team Description 06/07/2025 Patient Outreach [facility] MEDICINE [address] [place] [address] Linnette Oneill NP Care Coordination (CM/CHW outreach) from Last 3 Months Immunizations Immunization Administration Dates Next Due DTaP 07/23/1998, 6,1994,07/24,1994 Hep A, ped/adol, 2 dose 2011 Hep B, Adolescent or Pediatric 1994,1993,1994 Hib (HbOC) 09/17/1995,199 5,1994,06/02 IPV 09/17/1995, 5,1994,06/02 Influenza injectable quadriv [...] 75 05/29/2024 10:02 AM EDT Temperature 36.9 C (98.4 F) 05/29/2024 10:02 AM EDT Respiratory Rate 16 05/29/2024 10:02 AM EDT Oxygen Saturation - - Inhaled Oxygen Concentration - - Weight 94 kg (207 lb 3.2 oz) 05/29/2024 10:02 AM EDT Height 173.8 cm (5' 8.43 ) 05/29/2024 10:02 AM E DT Body Mass Index 31.11 05/29/2024 10:02 AM EDT Plan of Treatment Health Maintenance Due Date Last Done Comments Disability Screening 1994 Alcohol/Substance Use Screening 2006 Family Planning (PISQ) 2009 HPV Vaccines (1 - Male 3-dose series) 2009 Hepatitis A Vaccines (2 of 2 - 2-dose series) 08/27/2011 2011 COVID-19 Vaccine ( - season) 2025 Influenza Vaccine (#1) 2025 08/08/2018 Depression Screening 05/29/2025 05/29/2024, 05/29/20 24 SDOH [...] Completed 06/09/2024 Hepatitis C Screening Completed 06/09/2024 Meningococcal B Vaccine Aged Out No l onger eligible based on patient's age to complete this topic Pneumococcal Vaccine: Pediatrics (0 to 5 Years) and At-Risk Patients (6 to 49) Years Aged Out No longer eligible based on [...] AM EDT) Hepatitis C Antibody Nonreactive Nonreactive [facility] Comment:Antibodies to HCV no t detected; does not exclude early acuteHCV infection. Blood Venous blood specimen / Unknown 06/09/2024 8:56 AM EDT 06/09/2024 11:22 AM EDT us Linnette Oneill NP LAB BLOOD ORDERABLES Final Resul t [facility] [address] [place] [phone] * HIV-1/2 Antigen and Antibodies, Fourth Generation, with Reflexes (06/09/2024 8:56 AM EDT) HIV AB/AG Nonreactive Nonreactive [facility] Comment:HIV-1 p24 Ag and/or HIV-1/HIV-2 Ab not detected.A test result that is nonreactive does not exclude thepossibility of exposure to or infection with HIV-1 and/orHIV-2. Nonreactive results in this assay for individualswith prior exposure to HIV-1 and/or HIV-2 may be due toantigen and antibody levels that are below the limit ofdetection of this assay.The Leho HIV Ag/Ab Combo assay result andsupplemental assay results should be interpreted inconjunction with the patient's clinical presentation,history and other laboratory results. If the results areinconsistent with clinical evidence, additional testing issuggested to confirm the result. Blood Venous blood specimen / Unknown 06/09/2024 8:56 AM EDT 06/09/2024 11:22 AM EDT us Linnette Oneill FUEL OIL CLERK LAB BLOOD ORDERABLES Final Resul t [facility] [address] [place] [phone] [phone] from Last 3 Months or Most Recently Relevant to Health Maintenance [place] [address] [place] [address] C3 HSN FULL Care Teams Digital Campaign Specialist Relationship Specialty Start Date End Date Linnette Oneill NP [address] [place] [id number] PCP - General Family Medicine 05/29/24
--- OUTSIDE RECORDS SUMMARY | 2025-07-21 11:36 | XMS_ITS | Encounter Summary ---
Author Organization [employer] Address [address] [place] [address] Care Team Providers Care Information Operator Name Role Phone Linnette Oneill MUSHROOM GROWING SUPERVISOR Primary Care Provider [phone] Reason for Visit * Reason Onset Date Comments Nurse Triage 11/08/2024 Encounter Details Date Type Department Care Team ([facility] st Contact Info) Description 11/08/2024 Telephone [facility] [address] [place], [place] [phone] Linnette Oneill NP [address] [place], [place] [phone] Nurse Triage Social History Tobacco Use Types [...] is your housing situation today? I have carlosgerardo trejo 05/29/[address] you [...] Pt has had this drained before at [facility] and has been told to contact PCP for referral for surgical removal. Pt reports the cyst is size of a golf ball, hard to the touch and painful. Last time this was drained was before May of 2024. ASK apt with [facility] at 1145am 11/10/24. Pt agrees with [...] bend over. The caller accepted this outcome. [phone] documented in this encounter Plan of Treatment Not on file documented as of this encounter Visit Diagnoses Not on filedocumented in this encounter Additional Health Concerns Assessment Noted Time PHQ-9 Depression Total Score: 4 05/29/20 24 10:05 AM EDT documented as of this encounter Care Teams Information Operator Relationship Specialty Start Date End Date Linnette Oneill NP [address] [place] [address] PCP - General Family Medicine 05/29/24 documented as of this encounter
--- OUTSIDE RECORDS SUMMARY | 2025-07-21 11:36 | XMS_ITS | Clinical Summary ---
Author Organization [facility] Address [address] [place] [address] Care Team Providers Care Caseworker Intake Name Role Phone Unavailable Primary Care Provider [...] of 3 - 19+ 3-dose series) 2013 HPV Vaccines (1 - 3-dose SCD M series) 2021 HIV Screening 10/12/2023 Hepatitis C Screening 10/12/2023 Social Influencers of Health Screening 10/12/2023 Depression Screening 09/13/2024 COVID-19 Vaccine ( - 2023-2 5 season) 2025 Influenza Vaccine (#1) 2025 RSV Immunization Adult Patie nts (1 - 1-dose 75+ series) 2069 HIB Vaccines Aged Out No longer eligi [...] 5 Years) and At-Risk Patients (6 to 49 Years) Aged Out No longer eligible b ased on patient's age to complete this topic RSV Immunization Patients Un carol 20 months Aged Out No longer eligible b ased on patient's age to complete this topic Varicella Vaccines Aged Out No longer eligible based on patient's age to complete this topic
--- NOTE | 2025-07-21 12:15 | ED_ITS ---
HPI - Nausea/Vomiting/Diarrhea General Chief complaint: Nausea/Vomiting/Diarrhea Stated complaint: feels like passing out Time Seen by Provider: 07/21/25 11:28 History of Present Illness HPI Narrative: Patient is a 30-year-old male presents today with having some mild dry cough. Also dizziness. Nausea vomiting. No focal weakness. Has a history of the same before. No recent use of marijuana. No surgery to the abdomen in the past. Patient is from home. No pain in the abdomen. No travel history. No recent antibiotics. Related Data Home Medications ?Medication ?Instructions ?Recorded ?Confirmed ibuprofen 600 mg tablet 600 mg PO Q6H PRN Headache 0 12/15/24 03/08/25 Allergies Allergy/AdvReac Type Severity Reaction Status Date / Time No Known Allergies Allergy Verified 07/21/25 11:06 Review of Systems 2 Review of Systems: Positive nausea vomiting Yes all other systems are reviewed and are negative [facility] Past Medical History Attestation statement: The following information was validated with the patient. Medical History Fatty liver Appendix abscess Surgical History Hx of appendectomy No pertinent past surgical history Family History Family History Father Myocardial infarction Mother Hypertension Social History Social History Household Members: Family Housing: House Are you a primary congregational care pastor to a significant other at home: No Do you presently have visiting nurse or other home services: No Alcohol intake: never Patient Tobacco Use Status: Never used Tobacco Substance Use Type: Marijuana Advance Directives: No Advance Directives Information Provided: No service: No Physical Exam 2 Exam: Exam: Appearance: Alert. Oriented X3. No acute distress. Eyes: Pupils equal, round and reactive to light. ENT: Pharynx normal. Neck: Normal inspection. Neck supple. No lymph nodes noted. No crepitus CVS: Normal heart rate and rhythm. Pulses normal. Normal S1 and S2 Respiratory: No respiratory distress. Breath sounds normal. No Wheezing. No rales Abdomen: Soft and nontender. No rigidity. No distention. good BS x4 Skin: Skin warm and dry. Normal skin color. Normal skin turgor. Extremities: No lower extremity edema. Neurovascular intact to all extremities. No Lacerations. No Rash Neuro: Oriented X 3. No motor deficit. No sensory deficit. Moving all extermities. No slurred speech Vital Signs: Vital Signs: Last Vital Signs Temp 98.5 F 07/21/25 15:04 Pulse 54 07/21/25 15:04 Resp 16 07/21/25 15:04 BP 125/64 07/21/25 15:04 Pulse Ox 100 07/21/25 15:04 O2 Del Method Room Air 07/21/25 15:04 BMI result Body Mass Index 30.5 Medications Administered Discontinued Medications Generic Name Dose Route Start Last Admin Trade Name Freq PRN Reason Stop Dose Admin Diphenhydramine HCl 25 mg 07/21/25 13:25 07/21/25 13:33 Diphenhydramine Hcl 50 Mg/Ml Vial IVPUSH 07/21/25 13:26 25 mg ONCE ONE Administration Sodium Chloride 1,000 mls @ 999 mls/hr 07/21/25 12:15 07/21/25 13:45 Ns IV 07/21/25 13:15 Infused .Q1H1M MARY Infusion Sodium Chloride 1,000 mls @ 999 mls/hr 07/21/25 12:15 07/21/25 14:19 Ns IV 07/21/25 13:15 Infused .Q1H1M MARY Infusion Ketorolac Tromethamine 15 mg 07/21/25 12:14 07/21/25 12:23 Ketorolac Tromethamine 15 Mg/Ml Vial IVPUSH 07/21/25 12:15 15 mg ONCE ONE Administration Metoclopramide HCl 10 mg 07/21/25 13:22 07/21/25 13:33 Metoclopramide Hcl 10 Mg/2 Ml Vial IVPUSH 07/21/25 13:23 10 mg ONCE ONE Administration Ondansetron HCl 4 mg 07/21/25 12:14 07/21/25 12:22 Ondansetron Hcl 4 Mg/2 Ml Vial IVPUSH 07/21/25 12:15 4 mg ONCE ONE Administration Medical Decision Making Medical Decision Making MDM Narrative: Positive nausea positive generalized malaise. Had some mild dry cough earlier felt lightheaded. History of gastroenteritis in the past. Denies marijuana use. Patient's white count was 15. Electrolytes okay LFTs okay. COVID flu RSV were all negative. CT scan of the abdomen pelvis was done IV fluids given Zofran additional nausea medication given seems to have worked patient's symptoms free. Did not want to wait for CT scan results. My gross interpretation patient's CT scan was negative. Patient's stormed out of the emergency department understood the risk of leaving including obstruction perforation. Patient eloped from the emergency department Differential Diagnosis Differential Diagnoses: The differential diagnosis associated with the presentation includes Admission/Observation Consideration of admission/observation: Escalation of care including admission/observation considered Lab Data MDM Lab Attestation statement: I reviewed the patient's lab results. 07/21/25 13:43 07/21/25 12:33 Labs: Lab Results 07/21/25 07/21/25 07/21/25 Range/Units 11:40 12:33 13:43 WBC 15.0 H (4.8-10.8) X10*3/uL RBC 4.82 (4.60-5.80) X10*6/uL Hgb 13.7 L (14.0-18.0) g/dl Hct 41.5 L (42.0-52.0) % MCV 86.1 (80.0-98.0) fL MCH 28.4 (27.0-33.0) pg MCHC 33.0 (31.0-36.0) g/dl RDW 13.0 (11.0-16.0) % Plt Count 276 (160-400) X10*3/uL MPV 10.7 (9.4-12.4) fL Immature Gran % (Auto) 0.5 H (0.0-0.4) % Neut % (Auto) 79.7 H (45-73) % Lymph % (Auto) 11.7 L (20-40) % [place]berry % (Auto) 4.4 (2-11) % Eos % (Auto) 3.4 (0-4) % Baso % (Auto) 0.3 (0-2) % Lymph # (Auto) 1.8 (1.2-4.9) X10*3/uL [place] # (Auto) 0.7 (0.1-1.2) X10*3/uL Eos # (Auto) 0.5 H (0.0-0.4) X10*3/uL Baso # (Auto) 0.1 (0.0-0.2) X10*3/uL Abs Immat Gran (auto) 0.08 H (0.00-0.03) X10*3/uL Absolute Neuts (auto) 12.0 H (2.0-8.3) x10*3/uL Absolute Nucleated RBC 0.000 (0.0-0.012) X10*3/uL Nucleated RBC % (auto) 0.0 (0.0-0.2) /100WBC Sodium 140 (135-145) mmol/L Potassium 3.7 (3.3-5.1) mmol/L Chloride 109 H (96-108) mmol/L Carbon Dioxide 21 L (22-29) mmol/L Anion Gap 14 (12-20) BUN 8 L (9-16) mg/dL Creatinine 0.84 (0.5-1.4) mg/dL Estim Creat Clear Calc 143.9 Estimated GFR > 60 Random Glucose 114 (60-115) mg/dL Calcium 9.0 (8.4-10.2) mg/dL Total Bilirubin 1.1 H (0.0-1.0) mg/dL AST 20 (5-37) U/L ALT 11 (0-40) U/L Alkaline Phosphatase 80 (39-117) U/L Total Protein 7.3 (6.5-8.0) g/dL Albumin 4.3 (3.5-5.0) g/dL COVID-19 ([place]) Negative (Negative) COVID-19 Clin Com See Note Influenza Type A (SHELBY) Negative (Negative) Influenza Type B ([place]BY) Negative (Negative) Influenza A & B Note See Note Independent Interpretation I performed an independent interpretation of an: CT Scan (Grossly negative no obstruction no abscess no perforation) Chronic Conditions Nausea vomiting Social Determinants Patient?s care significantly limited by Social Determinants of Health including: Problems related to primary support group Discharge Plan Discharge Clinical Impression: Nausea & vomiting Patient Disposition: Elopement Prescriptions: No Action ibuprofen 600 mg Tablet 600 mg PO Q6H PRN (Reason: Headache) Print Language: Maltese
[2025-07-21 12:26] LABS: COVID-19 Test Negative (Negative); IDNOW Serial# 6674DD1D
[2025-07-21 12:52] LABS: Alanine Aminotransferase 11 U/L (0-40); Albumin Level 4.3 g/dL (3.5-5.0); Alkaline Phosphatase 80 U/L (39-117); Anion Gap 14 (12-20); Aspartate Amino Transferase 20 U/L (5-37); Blood Urea Nitrogen 8 mg/dL (9-16); Calcium 9.0 mg/dL (8.4-10.2); Carbon Dioxide 21 mmol/L (22-29); Chloride 109 mmol/L (96-108); Creatinine Clr Calc Pharmacy 143.9; Estimated Glomerular Filt Rate > 60; Potassium 3.7 mmol/L (3.3-5.1); Sodium 140 mmol/L (135-145); Total Protein 7.3 g/dL (6.5-8.0)
[2025-07-21 13:00] LABS: IDNOW Serial# 55D5AD1C; Influenza B2 Negative (Negative)
[2025-07-21 14:04] LABS: Hematocrit 41.5 % (42.0-52.0); Hemoglobin 13.7 g/dl (14.0-18.0); Imm Gran Abs Auto 0.08 X10*3/uL (0.00-0.03); Imm Gran Pct Auto 0.5 % (0.0-0.4); Lymphocytes Absolute Auto 1.8 X10*3/uL (1.2-4.9); Mean Corpuscular HGB Conc 33.0 g/dl (31.0-36.0); Mean Corpuscular Hemoglobin 28.4 pg (27.0-33.0); Mean Corpuscular Volume 86.1 fL (80.0-98.0); NRBC Abs Auto 0.000 X10*3/uL (0.0-0.012); NRBC Pct Auto 0.0 /100WBC (0.0-0.2); Platelet Count 276 X10*3/uL (160-400); Red Blood Count 4.82 X10*6/uL (4.60-5.80); White Blood Count 15.0 X10*3/uL (4.8-10.8)
--- NOTE | 2025-07-21 14:19 | PC.NURSE ---
previously medicated with additional medications for nausea. fluids have infused. pending ct scan/dispo
[2025-07-21 15:04] VITALS: BP 125/64; PULSE 54; RESP 16; TEMP 36.9; O2SAT 100
--- NOTE | 2025-07-21 15:16 | PC.NURSE ---
patient denies pain, denies nausea/vomiting. requesting to leave as he is feeling better, does not wish to wait for ct scan results. provider made aware.
--- NOTE | 2025-07-21 15:49 | PC.NURSE ---
Pt wanting to leave AMA. instructed pt that if he leave, he will be leaving AMA. He has not received all of his diagnostic results. Pt verbalizes understanding. RN removed PIV. Instructed pt to wait for AMA paperwork. Pt seen walking out of department. States I'm not waiting on any paperwork . notified.
== END 2025-07-21 15:53 | disposition left against medical advice (07) ==
PROVIDERS: Emergency Provider Emergency Medicine Emergency Medical Services
DX: R11.2 Nausea with vomiting, unspecified (principal); R05.9 Cough, unspecified; R53.81 Other malaise
CPT/HCPCS: 74177; 80053; 85025; 87502; 87635; 93005; 96361; 96374; 96375; 99285; J1200; J1885; J2405; J2765

== ENCOUNTER → 2025-07-21 10:39 | Outpatient (BNV) | payer MEDICAID, SELFPAY | PROVIDERS: Emergency Provider Emergency Medicine Emergency Medical Services; Visit Provider Internal Medicine Cardiovascular Disease | DX: R00.1 Bradycardia, unspecified (principal) | CPT/HCPCS: 93010 ==

== ENCOUNTER → 2025-07-21 13:25 | Outpatient (BNV) | payer MEDICAID, SELFPAY | PROVIDERS: Emergency Provider Emergency Medicine Emergency Medical Services; Visit Provider Radiology Diagnostic Radiology | DX: R11.2 Nausea with vomiting, unspecified (principal) | CPT/HCPCS: 74177 ==

== ENCOUNTER 2025-07-23 09:22 | Emergency (ER) | payer MEDICAID, SELFPAY ==
[2025-07-23 09:42] VITALS: BP 128/66; PULSE 57; RESP 18; TEMP 37.3; O2SAT 97; BMI 30.3
[2025-07-23 10:25] LABS: MANUAL DIFF FLAG NO
[2025-07-23 10:39] LABS: Hematocrit 40.7 % (42.0-52.0); Hemoglobin 13.7 g/dl (14.0-18.0); Imm Gran Abs Auto 0.05 X10*3/uL (0.00-0.03); Imm Gran Pct Auto 0.4 % (0.0-0.4); Lymphocytes Absolute Auto 2.0 X10*3/uL (1.2-4.9); Mean Corpuscular HGB Conc 33.7 g/dl (31.0-36.0); Mean Corpuscular Hemoglobin 28.6 pg (27.0-33.0); Mean Corpuscular Volume 85.0 fL (80.0-98.0); NRBC Abs Auto 0.000 X10*3/uL (0.0-0.012); NRBC Pct Auto 0.0 /100WBC (0.0-0.2); Platelet Count 271 X10*3/uL (160-400); Red Blood Count 4.79 X10*6/uL (4.60-5.80); White Blood Count 12.3 X10*3/uL (4.8-10.8)
[2025-07-23 10:40] LABS: Anion Gap 14 (12-20); Blood Urea Nitrogen 7 mg/dL (9-16); Calcium 9.3 mg/dL (8.4-10.2); Carbon Dioxide 22 mmol/L (22-29); Chloride 107 mmol/L (96-108); Creatinine Clr Calc Pharmacy 169.7; Estimated Glomerular Filt Rate > 60; Potassium 3.3 mmol/L (3.3-5.1); Sodium 140 mmol/L (135-145)
--- NOTE | 2025-07-23 11:03 | ED_ITS ---
HPI - General Adult General Chief complaint: Nausea/Vomiting/Diarrhea Stated complaint: feels faint Time Seen by Provider: 07/23/25 10:45 Source: patient and family (mom) Mode of arrival: ambulatory Limitations: no limitations History of Present Illness ED Provider: PAM WALTERS PA-C HPI narrative: 30 year old male presents to the ED today for evaluation of nausea, vomiting, and feeling faint x3 days. Previously seen at our facility for same 2 days ago, discharged home with zofran. States zofran has not helped with nausea. He last took this at approx. 0600 this morning. He has been unable to tolerate PO at home. Endorses abdominal discomfort. States that he was vomiting all day and all night yesterday. Endorses brown color in vomit 2 days ago. Now only vomiting bile. No bright red blood or coffee grounds. Denies etoh consumption. States that he has not smoked marijuana in 2 weeks. Denies frequent NSAID use. Mom at bedside states family hx of peptic ulcers. Surgical hx significant for appendectomy. Related Data Home Medications ?Medication ?Instructions ?Recorded ?Confirmed ibuprofen 600 mg tablet 600 mg PO Q6H PRN Headache 0 12/15/24 03/08/25 Previous Rx's ?Medication ?Instructions ?Recorded famotidine 20 mg tablet (Pepcid) 20 mg PO BID 4 weeks #56 tabs 07/23/25 metoclopramide HCl 5 mg tablet 10 mg (2 x 5 mg) PO Q6H PRN nausea 07/23/25 (Reglan) and vomiting #20 tabs Allergies Allergy/AdvReac Type Severity Reaction Status Date / Time No Known Allergies Allergy Verified 07/23/25 09:43 Review of Systems 2 Review of Systems: Yes all other systems are reviewed and are negative PMFSH Past Medical History Attestation statement: The following information was validated with the patient. Source: old records reviewed and nursing notes reviewed Medical History Fatty liver Appendix abscess Surgical History Hx of appendectomy No pertinent past surgical history Family History Family History Father Myocardial infarction Mother Hypertension Social History Social History Household Members: Family Housing: House Are you a primary resident care spec to a significant other at home: No Do you presently have visiting nurse or other home services: No Alcohol intake: never Patient Tobacco Use Status: Never used Tobacco Smoked in Last 30 Days: No Substance Use Type: Marijuana Advance Directives: No Advance Directives Information Provided: No service: No Physical Exam ED Vital Signs: Vital Signs - 24 hr 07/23/25 09:42 07/23/25 11:13 07/23/25 13:29 Temperature 99.1 F 98.8 F 98.5 F Pulse Rate 57 50 44 L Respiratory Rate 18 Blood Pressure 128/66 134/72 124/70 Pulse Oximetry 97 99 100 Oxygen Delivery Method Room Air Room Air Room Air 07/23/25 14:09 Temperature 98.5 F Pulse Rate 44 L Respiratory Rate 18 Blood Pressure 124/70 Pulse Oximetry 100 Oxygen Delivery Method Room Air BMI result Body Mass Index 30.3 vital signs stable, afebrile General: Well appearing, in no acute distress. Skin: Warm, dry, intact. No rashes or lesions. Head: Normocephalic, atraumatic. EENT: Hearing is intact b/l. Conjunctiva clear. PERRLA. EOM intact. Moist mucous membranes.? Neck: Supple without LAD Cardiac: Chest wall symmetric. RRR Lungs: Normal respiratory effort without accessory muscle use. CTA bilaterally Abdomen: Soft, non-tender, non-distended. No rebound tenderness or guarding. Positive BS x4. negative Cannon sign. Back: No midline spinous or paraspinal tenderness. No step off deformity. Ext: Upper and lower extremities atraumatic, without tenderness, deformity, swelling or erythema Neuro: AOx3. Normal speech. Ambulating with steady gait. Course Course Course Narrative: 1314 -- CBC showing slight leukocytosis to 12.3 without left shift. This appears to be chronic when compared to priors, improved since visit 2 days ago. Likely reactive secondary to vomiting. Chemistry without acute electrolyte abnormality requiring intervention. No HOWIE. I have reviewed CTA/P obtained 2 days ago. There is no acute abnormality noted. No evidence of bowel obstruction. Gallbladder appears normal, no CBD dilation. Pancreas unremarkable. Radiologist's reading slight stranding of the subcutaneous soft tissues involving left inguinal region, nonspecific although could suggest mild cellulitis. His exam is completely unremarkable, no evidence of overlying skin infection to inguinal region. nonsurgical abdomen, negative Cannon's sign. I do not feel as though repeat imaging of his abdomen is warranted at this time. > concern for gastritis v PUD v cannabinoid hyperemesis. will PO trial patient w/ likely discharge home. there is no indication for admission. Advised to completely discontinue marijuana use. will start patient on pepcid. advised f/u with PCP. will also refer to GI for possible endoscopy. 1356 -- patient tolerating p.o.. Anxious for discharge. Pepcid and Zofran sent to pharmacy. GI referral provided. Patient has remained stable throughout ED visit today. Discussed worrisome signs and symptoms and when to return to the ED. All questions answered at this time. Patient is agreeable with disposition and stable for discharge. Medications Administered Discontinued Medications Generic Name Dose Route Start Last Admin Trade Name Freq PRN Reason Stop Dose Admin Diphenhydramine HCl 25 mg 07/23/25 11:13 07/23/25 12:12 Diphenhydramine Hcl 50 Mg/Ml Vial IVPUSH 07/23/25 11:14 25 mg ONCE ONE Administration Famotidine 20 mg 07/23/25 11:14 07/23/25 12:12 Famotidine/Pf 20 Mg/2 Ml Vial IVPUSH 07/23/25 11:15 20 mg ONCE ONE Administration Sodium Chloride 1,000 mls @ 999 mls/hr 07/23/25 11:15 07/23/25 13:09 Ns IV 07/23/25 12:15 Infused .Q1H1M MARY Infusion Metoclopramide HCl 10 mg 07/23/25 11:13 07/23/25 12:12 Metoclopramide Hcl 10 Mg/2 Ml Vial IVPUSH 07/23/25 11:14 10 mg ONCE ONE Administration Medical Decision Making Medical Decision Making MDM Narrative: 30 year old male presents to the ED today for evaluation of nausea, vomiting, and feeling faint x3 days. vital signs stable. his exam is reassuring - not clinically dehydrated. abdomen is soft, ND/NT, no rebound/ guarding, negative murphys, active bs x4. no cvat. no active vomiting. Differential diagnosis includes biliary colic, gastroenteritis, gastritis, PUD, dehydration, electrolyte abnormality, anemia. Abdominal exam without peritoneal signs. No evidence of acute abdomen at this time. Well appearing. Moderate suspicion for acute hepatobiliary disease (including acute cholecystitis). Less likely to represent acute pancreatitis, perforated ulcer/ GI bleed, acute infectious processes (pneumonia, hepatitis, pyelonephritis), vascular catastrophe, bowel obstruction or viscus perforation. Presentation not consistent with other acute, emergent causes of abdominal pain at this time. Plan for repeat labs, IVF and meds, PO trial, re-eval. Differential Diagnosis Differential Diagnoses: The differential diagnosis associated with the presentation includes As above Admission/Observation Not indicated Lab Data MDM Lab Attestation statement: I reviewed the patient's lab results. As above 07/23/25 10:21 07/23/25 10:21 Labs: Lab Results 07/23/25 Range/Units 10:21 WBC 12.3 H (4.8-10.8) X10*3/uL RBC 4.79 (4.60-5.80) X10*6/uL Hgb 13.7 L (14.0-18.0) g/dl Hct 40.7 L (42.0-52.0) % MCV 85.0 (80.0-98.0) fL MCH 28.6 (27.0-33.0) pg MCHC 33.7 (31.0-36.0) g/dl RDW 12.8 (11.0-16.0) % Plt Count 271 (160-400) X10*3/uL MPV 10.3 (9.4-12.4) fL Immature Gran % (Auto) 0.4 (0.0-0.4) % Neut % (Auto) 77.0 H (45-73) % Lymph % (Auto) 16.1 L (20-40) % [place] % (Auto) 6.1 (2-11) % Eos % (Auto) 0.2 (0-4) % Baso % (Auto) 0.2 (0-2) % Lymph # (Auto) 2.0 (1.2-4.9) X10*3/uL [place] # (Auto) 0.8 (0.1-1.2) X10*3/uL Eos # (Auto) 0.0 (0.0-0.4) X10*3/uL Baso # (Auto) 0.0 (0.0-0.2) X10*3/uL Abs Immat Gran (auto) 0.05 H (0.00-0.03) X10*3/uL Absolute Neuts (auto) 9.5 H (2.0-8.3) x10*3/uL Absolute Nucleated RBC 0.000 (0.0-0.012) X10*3/uL Nucleated RBC % (auto) 0.0 (0.0-0.2) /100WBC Sodium 140 (135-145) mmol/L Potassium 3.3 (3.3-5.1) mmol/L Chloride 107 (96-108) mmol/L Carbon Dioxide 22 (22-29) mmol/L Anion Gap 14 (12-20) BUN 7 L (9-16) mg/dL Creatinine 0.71 (0.5-1.4) mg/dL Estim Creat Clear Calc 169.7 Estimated GFR > 60 Random Glucose 114 (60-115) mg/dL Calcium 9.3 (8.4-10.2) mg/dL Independent Interpretation I performed an independent interpretation of an: CT Scan Interpretation: CT A/P on 07/21/2028 without bowel obstruction Radiology Impression Discussion of test interpretation with radiology: I have reviewed the radiologist's reading. Radiologist Impression: Procedure(s): CT abdomen pelvis w IV con Accession Number(s): [id number] cc: [facility]; Lyssa Delgado MD~ Report Number: [id number]: Total DLP = 605.00 mGy-cm Reason for Exam: nv CLINICAL HISTORY: nv Exam: Contrast-enhanced CT abdomen and pelvis with multiplanar reformats. Comparison: None. Findings: CT abdomen: Lung bases are clear. Liver is free of focal lesions and ductal dilatation. Gallbladder appears unremarkable. Spleen is unremarkable. Pancreas and adrenal glands appear unremarkable. Kidneys appear unremarkable. No free intraperitoneal fluid or retroperitoneal masses or adenopathy. Abdominal aorta is normal caliber. Bowel loops reveal no abnormal wall thickening or distention. The appendix appears to be surgically absent. No CT evidence of appendicitis. No significant diverticular disease. CT pelvis: No pelvic masses, fluid or adenopathy. Urinary bladder is free of gross filling defects. Prostate gland and seminal vesicles appear unremarkable. There is trace nonspecific stranding of the subcutaneous soft tissues in the left inguinal region (4; 923-299). This has nonspecific although could suggest slight cellulitis. Osseous structures reveal no destructive osseous lesions. Impression: 1. No acute abnormality or CT explanation for reported history of nausea and vomiting. 2. Slight stranding of the subcutaneous soft tissues involving left inguinal region is nonspecific although could suggest minimal cellulitis. This document has been electronically signed by: Melvin Smith MD on 07/21/2025 15:52:58 Independent Historian Clinical information obtained from an independent historian. History obtained from or confirmed by: Other (mom) External Record Review External record reviewed: Inpatient record Prescription Management I considered prescription management with: Other (pepcid) Social Determinants Patient?s care significantly limited by Social Determinants of Health including: Other Social Determinant of Health Critical Care Time Critical Care Time Critical Care Time: No Discharge Plan Discharge Clinical Impression: Nausea & vomiting Patient Disposition: Home, Self-Care Instructions: Peptic Ulcer (ED), Acute Nausea and Vomiting (ED) Additional Instructions: Your work up today is reassuring. I am sending you home with a prescription for Reglan. Take this as needed for nausea/vomiting. As discussed, I am also starting you on Pepcid. Take this twice daily over the next 4 weeks. I recommend following up with your PCP. You may need to follow up with GI for upper endoscopy. I have provided you with a referral. Call them to establish care. They will not call you. I also advised to permanently stop smoking marijuana. This can make your symptoms worse. Symptoms can continue weeks to months after discontinuing marijuana use. You may return with any new or worsening symptoms. In the case of an emergency call 911. Prescriptions: New famotidine [Pepcid] 20 mg tablet 20 mg PO BID 28 Days Qty: 56 0RF metoclopramide HCl [Reglan] 5 mg tablet 10 mg PO Q6H PRN (Reason: nausea and vomiting) Qty: 20 0RF No Action ibuprofen 600 mg Tablet 600 mg PO Q6H PRN (Reason: Headache) Referrals: [facility] [place] [facility] [Provider Group, Gastroenterology] Center,[facility] [Primary Care Provider, Medical] Interventions: ED Discharge Assessment Last Done: 07/23/25 14:09 Discharge Date/Time: 07/23/25 14:09 Print Language: Khmer
[2025-07-23 11:13] VITALS: BP 134/72; PULSE 50; TEMP 37.1; O2SAT 99
--- OUTSIDE RECORDS SUMMARY | 2025-07-23 12:09 | XMS_ITS | Encounter Summary ---
Author Organization [employer] Address [address] [facility] [address] [place] [address] Care Team Providers Care City Comptroller Name Role Phone SorayaLinnette sherman AMMON Primary Care Provider [phone] Encounter Details Date Type Department Care Team (Late st Contact Info) Description 07/21/2025 Orders Only GENERIC EXTERNAL DATA DEPARTMENT Provider, Generic External Data Social History Tobacco Use Types Packs/Day Years [...] t he electric, gas, oil or water [employer] threatened to shut off services in your [...] on file documented as of this encounter Procedures Procedure Name Priority Date/Time Associated Diagnosis Comments CT ABDOMEN PELVIS W CONTRAST Routine 07/21/2025 3:52 PM EST CBC WITH AUTO DIFFERENTIAL Routine 07/21/2025 1:43 PM EST COMPREHENSIVE METABOLIC PANEL Routine 07/21/2025 12:33 PM EST INFLUENZA A B2 ID NOW ([facility]) Routine 07/21/2025 11:40 AM EST COVID-19 ID NOW ([employer]) Routine 07/21/2025 11:40 AM EST documented in this encounter Results * CT Abdomen Pelvis w/ Contrast (07/21/2025 3:52 PM EST) Anatomical Region Laterality Modality Body, Pelvis, Abdomen Computed T omography 07/21/2025 3:52 PM EST Narrative 07/21/2025 3:53 PM EST [place] [address] CT Scan Report Signed Patient: Herrera Trujillo MR#: [id number] : 1995 Acct:[id number] Age/Sex: 30 / M ADM Date: 07/21/25 Loc: HO.ED Attending Dr: Ordering Physician: Lyssa Delgado MD Date of Service: 07/21/25 Procedure(s): CT abdomen pelvis w IV con Accession Number(s): [id number] cc: [facility]; Lyssa Delgado MD Report Number: [id number]: Total DLP = 605.00 mGy-cm Reason for Exam: nv CLINICAL HISTORY: nv Exam: Contrast-enhanced CT abdomen and pelvis with multiplanar reformats. Comparison: None. Findings: CT abdomen: Lung bases are clear. Liver is free of focal lesions and ductal dilatation. Gallbladder appears unremarkable. Spleen is unremarkable. Pancreas and adrenal glands appear unremarkable. Kidneys appear unremarkable. No free intraperitoneal fluid or retroperitoneal masses or adenopathy. Abdominal aorta is normal caliber. Bowel loops reveal no abnormal wall thickening or distention. The appendix appears to be surgically absent. No CT evidence of appendicitis. No significant diverticular disease. CT pelvis: No pelvic masses, fluid or adenopathy. Urinary bladder is free of gross filling defects. Prostate gland and seminal vesicles appear unremarkable. There is trace nonspecific stranding of the subcutaneous soft tissues in the left inguinal region (4; 614-670). This has nonspecific although could suggest slight cellulitis. Osseous structures reveal no destructive osseous lesions. Impression: 1. No acute abnormality or CT explanation for reported history of nausea and vomiting. 2. Slight stranding of the subcutaneous soft tissues involving left inguinal region is nonspecific although could suggest minimal cellulitis. This document has been electronically signed by: Melvin Smith MD on 07/21/2025 15:52:58 Dictated By: Melvin Smith MD Signed By: <Electronically signed by Melvin Smith MD in OV> 07/21/25 1553 DD/ 1552 TD/TT: 07/21/25 1552 Exercise Instructor: Procedure Note Donotuseinterpreter, Image - 07/21/[address] [address] [address] Scan Report Signed Patient: Herrera TrujilloMR#: [id number] : 1995Acct:[id number] Age/Sex: 30 / MADM Date: 07/21/25 Loc: HO.ED Attending Dr: Ordering Physician: Lyssa Delgado MD Date of Service: 07/21/25 Procedure(s): CT abdomen pelvis w IV con Accession Number(s): [id number] cc: [facility]; Lyssa Delgado MD Report Number: [id number]: Total DLP = 605.00 mGy-cm Reason for Exam: nv CLINICAL HISTORY: nv Exam: Contrast-enhanced CT abdomen and pelvis with multiplanar reformats. Comparison: None. Findings: CT abdomen: Lung bases are clear. Liver is free of focal lesions and ductal dilatation. Gallbladder appears unremarkable. Spleen is unremarkable. Pancreas and adrenal glands appear unremarkable. Kidneys appear unremarkable. No free intraperitoneal fluid or retroperitoneal masses or adenopathy. Abdominal aorta is normal caliber. Bowel loops reveal no abnormal wall thickening or distention. The appendix appears to be surgically absent. No CT evidence of appendicitis. No significant diverticular disease. CT pelvis: No pelvic masses, fluid or adenopathy. Urinary bladder is free of gross filling defects. Prostate gland and seminal vesicles appear unremarkable. There is trace nonspecific stranding of the subcutaneous soft tissues in the left inguinal region (4; 614-670). This has nonspecific although could suggest slight cellulitis. Osseous structures reveal no destructive osseous lesions. Impression: 1. No acute abnormality or CT explanation for reported history of nausea and vomiting. 2. Slight stranding of the subcutaneous soft tissues involving left inguinal region is nonspecific although could suggest minimal cellulitis. This document has been electronically signed by: Melvin Smith MD on 07/21/2025 15:52:58 Dictated By: Melvin Smith MD Signed By: <Electronically signed by Melvin Smith MD in OV> 07/21/25 1553 DD/ 1552 TD/TT: 07/21/25 1552 Exercise Instructor: [facility] External Provider IMG CT PROCEDURES Final Result * (ABNORMAL) CBC auto differential (07/21/2025 1:43 PM EST) White Blood Count 15.0(H) 4.8 - 10.8 X10*3/uL [facility] Red Blood Count 4.82 4.60 - 5.80 X10*6/uL [facility] Hemoglobin 13.7(L) 14.0 - 18.0 g/dl [facility] Hematocrit 41.5(L) 42.0 - 52.0 % [facility] Mean Corpuscular Volume 86.1 80.0 - 98.0 fL [facility] Mean Corpuscular Hemoglobin 28.4 27.0 - 33.0 pg [facility] Mean Corpuscular HGB Conc 33.0 31.0 - 36.0 g/dl [facility] Red Cell Distribution Width 13.0 11.0 - 16.0 % [facility] Platelet Count 276 160 - 400 X10*3/uL [facility] Mean Platelet Volume 10.7 9.4 - 12.4 fL [facility] Neutrophils Percent Auto 79.7(H) 45 - 73 % [facility] Imm Gran Pct Auto 0.5(H) 0.0 - 0.4 % [facility] Lymphocytes Percent Auto 11.7(L) 20 - 40 % [facility] Monocytes Percent Auto 4.4 2 - 11 % [facility] Eosinophils Percent Auto 3.4 0 - 4 % [facility] Basophils Percent Auto 0.3 0 - 2 % [facility] NRBC Pct Auto 0.0 0.0 - 0.2 /100WBC [facility] Neutrophils Absolute Auto 12.0(H) 2.0 - 8.3 x10*3/uL [facility] Imm Gran Abs Auto 0.08(H) 0.00 - 0.03 X10*3/uL [facility] Lymphocytes Absolute Auto 1.8 1.2 - 4.9 X10*3/uL [facility] Monocytes Absolute Auto 0.7 0.1 - 1.2 X10*3/uL [facility] Eosinophils Absolute Auto 0.5(H) 0.0 - 0.4 X10*3/uL [facility] Basophils Absolute Auto 0.1 0.0 - 0.2 X10*3/uL [facility] NRBC Abs Auto 0.000 0.0 - 0.012 X10*3/uL [facility] 07/21/2025 1:43 PM EST 07/21/2025 2:00 PM EST Narrative [facility] - 07/21/2025 2:04 PM EST SPECIMEN CLOTTED us Generic External Data Provider LAB BLOOD ORDERAB LES Edited Result - Final [facility] [address] [place] [address] [phone] * (ABNORMAL) Comprehensive Metabolic Panel (07/21/2025 12:33 PM EST) Sodium 140 135 - 145 mmol/L [facility] Potassium 3.7 3.3 - 5.1 mmol/L [facility] Chloride 109(H) 96 - 108 mmol/L [facility] Carbon Dioxide 21(L) 22 - 29 mmol/L [facility] Anion Gap 14 12 - 20 [facility] Urea Nitrogen (BUN) 8(L) 9 - 16 mg/dL [facility] Creatinine, Serum 0.84 0.5 - 1.4 mg/dL [facility] Creatinine Clr Calc Pharmacy 143.9 [facility] Comment:eGFR (calculated fro m the MDRD study equation) and eCrCl(calculated from the Cockcroft-Gault equation) are based ondifferent parameters and may not yield comparable results.If eCrCl result is absurd, please check patient'sheight/weight. Estimated Glomerular Filt Rate >60 [facility] Comment:Chronic Kidney Disea se: Estimated GFR < 60 mL/min/1.72f7Kaxqoi Kidney Disease: Estimated GFR < 15 mL/min/1.73m2 Glucose 114 60 - 115 mg/dL [facility] Calcium 9.0 8.4 - 10.2 mg/dL [facility] Bilirubin, Total 1.1(H) 0.0 - 1.0 mg/dL [facility] Aspartate Amino Transferase 20 5 - 37 U/L [facility] Alanine Aminotransferase 11 0 - 40 U/L [facility] Total Protein 7.3 6.5 - 8.0 g/dL [facility] Albumin Level 4.3 3.5 - 5.0 g/dL [facility] Alkaline Phosphatase 80 39 - 117 U/L [facility] 07/21/2025 12:3 3 PM EST 07/21/2025 12:35 PM EST Generic External Data Provider LAB BLOOD ORDERAB LES Final Result Performing Organization Address [facility] Co de Phone Number [facility] [address] [place] [phone] * Influenza A B2 ID NOW (Rodarte) (07/21/2025 11:40 AM EST) IDNOW SERIAL# [id number] [facility] Influenza A Negative Negative [facility] Influenza B2 Negative Negative [facility] Influenza A B2 Note See Note [facility] Comment:The Rodarte ID NOW In fluenza A B2 test is used for thequalitative detection of influenza A and B from patientswith signs and symptoms of respiratory infection.Negative results do not preclude influenza virus infectionand should not be used as the sole basis for diagnosis,treatment or other patient management decisions.There is a risk of false negative results due to thepresence of variants in the viral targets of the assay, lowlevels of virus in the specimen and co- infection withRespiratory Syncytial Virus. 07/21/2025 11:4 0 AM EST 07/21/2025 11:57 AM EST Generic External Data Provider LAB MICROBIOLOGY - GENERAL ORDERABLES Final Result Performing Organization Address [facility] Co de Phone Number [facility] [address] [place] [phone] * COVID-19 ID NOW (RODARTE) (07/21/2025 11:40 AM EST) IDNOW SERIAL# [id number] [facility] COVID-19 TEST Negative Negative [facility] COVID-19 NOTE See Note [facility] Comment: Results are for the identification of SARS-CoV2 RNA. TheSARS-CoV2 RNA is generally detectable in respiratory samplesduring the acute phase of infection. Positive results areindicative of the presence of SARS-CoV-2 RNA; clinicalcorrelation with patient history and other diagnosticinformation is necessary to determine patient infectionstatus. Positive results do not rule out bacterial infectionor co- infection with other viruses.Testing facilities within the [place] and [place] [place] are required to report all positive results tothe appropriate public health authorities.Negative results should be treated as presumptive and, ifinconsistent with clinical signs and symptoms or necessaryfor patient management, should be tested with differentauthorized or cleared molecular tests. Negative results donot preclude SARS-CoV2 RNA infection and should not be usedas the sole basis for patient management decisions. Negativeresults should be considered in the context of a patient'srecent exposures, history and the presence of clinical signsand symptoms consistent with COVID-19.This test has been authorized by the FDA under an EmergencyUse Authorization (EUA) for use by authorized laboratories.Testing performed on the [employer] ID NOW utilizing NAAT. 07/21/2025 11:4 0 AM EST 07/21/2025 11:57 AM EST us Generic External Data Provider LAB MOLECULAR ALEJANDRO GNOSTICS ORDERABLES Final Result [facility] [address] [place] [phone] documented in this encounter Visit Diagnoses Not on filedocumented in this encounter Additional Health Concerns Assessment Noted Time PHQ-9 Depression Total Score: 4 05/29/20 24 10:05 AM EDT documented as of this encounter Care Teams City Comptroller Relationship Specialty Start Date End Date Linnette Oneill NP [address] [place] [address] PCP - General Family Medicine 05/29/24 documented as of this encounter
--- OUTSIDE RECORDS SUMMARY | 2025-07-23 12:09 | XMS_ITS | Clinical Summary ---
Author Organization [employer] [facility] Address [address] [facility] 7t [place] [address] Care Team Providers Care Underwriter Name Role Phone Linnette Oneill LURE MAKER Primary Care Provider [phone] Allergies No known active allergies Medications No [...] Encounters Date Type Department Care Team Description 07/23/2025 Orders Only GENERIC EXTERNAL DATA DEPARTMENT Provider, Generic External Data 07/21/2025 Orders Only GENERIC EXTERNAL DATA DEPARTMENT Provider, Generic External Data 06/07/[address] [facility] [address] [place] [address] Linnette Oneill NP Care Coordination (CM/CHW outreach) [...] series) 08/27/2011 2011 COVID-19 Vaccine ( season) 2025 Influenza Vaccine (#1) 2025 08/08/2018 [...] Procedure Name Priority Date/Time Associated Diagnosis Comments BASIC METABOLIC PANEL Routine 07/23/2025 10:21 AM EST CBC WITH AUTO DIFFERENTIAL Routine 07/23/2025 10:[address] ABDOMEN PELVIS W CONTRAST Routine 07/21/2025 3:52 PM EST CBC WITH AUTO DIFFERENTIAL Routine 07/21/2025 1:43 PM EST COMPREHENSIVE METABOLIC PANEL Routine 07/21/2025 12:33 PM EST COVID-19 ID NOW ([facility]) Routine 07/21/2025 11:40 AM EST INFLUENZA A B2 ID NOW ([facility]ODARTE) Routine 07/21/2025 11:40 AM EST HEPATITIS C AB W/REFL TO HCV RNA, QN, PCR Routine 06/09/2024 8:56 AM EDT Healthcare maintenance HIV 1/2 ANTIGEN/ANTIBODY, FOURTH GENERATION W/RFL Routine 06/09/2024 8:56 AM EDT Healthcare maintenance from Last 3 Months or Most Recently Relevant to Health Maintenance Results * (ABNORMAL) CBC auto differential (07/23/2025 10:21 AM EST) Only the most recent of2 resultswithin the time period is included. White Blood Count 12.3(H) 4.8 - 10.8 X10*3/uL [facility] Red Blood Count 4.79 4.60 - 5.80 X10*6/uL [facility] Hemoglobin 13.7(L) 14.0 - 18.0 g/dl [facility] Hematocrit 40.7(L) 42.0 - 52.0 % [facility] Mean Corpuscular Volume 85.0 80.0 - 98.0 fL [facility] Mean Corpuscular Hemoglobin 28.6 27.0 - 33.0 pg [facility] Mean Corpuscular HGB Conc 33.7 31.0 - 36.0 g/dl [facility] Red Cell Distribution Width 12.8 11.0 - 16.0 % [facility] Platelet Count 271 160 - 400 X10*3/uL [facility] Mean Platelet Volume 10.3 9.4 - 12.4 fL [facility] Neutrophils Percent Auto 77.0(H) 45 - 73 % [facility] Imm Gran Pct Auto 0.4 0.0 - 0.4 % [facility] Lymphocytes Percent Auto 16.1(L) 20 - 40 % [facility] Monocytes Percent Auto 6.1 2 - 11 % [facility] Eosinophils Percent Auto 0.2 0 - 4 % [facility] Basophils Percent Auto 0.2 0 - 2 % [facility] NRBC Pct Auto 0.0 0.0 - 0.2 /100WBC [facility] Neutrophils Absolute Auto 9.5(H) 2.0 - 8.3 x10*3/uL [facility] Imm Gran Abs Auto 0.05(H) 0.00 - 0.03 X10*3/uL [facility] Lymphocytes Absolute Auto 2.0 1.2 - 4.9 X10*3/uL [facility] Monocytes Absolute Auto 0.8 0.1 - 1.2 X10*3/uL [facility] Eosinophils Absolute Auto 0.0 0.0 - 0.4 X10*3/uL [facility] Basophils Absolute Auto 0.0 0.0 - 0.2 X10*3/uL [facility] NRBC Abs Auto 0.000 0.0 - 0.012 X10*3/uL [facility] 07/23/2025 10:2 1 AM EST 07/23/2025 10:24 AM EST us Generic External Data Provider LAB BLOOD ORDERAB LES Final Result [facility] [address] [place] [address] [phone] * (ABNORMAL) Basic Metabolic Panel (07/23/2025 10:21 AM EST) Sodium 140 135 - 145 mmol/L [facility] Potassium 3.3 3.3 - 5.1 mmol/L [facility] Chloride 107 96 - 108 mmol/L [facility] Carbon Dioxide 22 22 - 29 mmol/L [facility] Anion Gap 14 12 - 20 [facility] Urea Nitrogen (BUN) 7(L) 9 - 16 mg/dL [facility] Creatinine, Serum 0.71 0.5 - 1.4 mg/dL [facility] Creatinine Clr Calc Pharmacy 169.7 [facility] Comment:eGFR (calculated fro m the MDRD study equation) and eCrCl(calculated from the Cockcroft-Gault equation) are based ondifferent parameters and may not yield comparable results.If eCrCl result is absurd, please check patient'sheight/weight. Estimated Glomerular Filt Rate >60 [facility] Comment:Chronic Kidney Disea se: Estimated GFR < 60 mL/min/1.56o5Yvbwut Kidney Disease: Estimated GFR < 15 mL/min/1.73m2 Glucose 114 60 - 115 mg/dL [facility] Calcium 9.3 8.4 - 10.2 mg/dL [facility] 07/23/2025 10:2 1 AM EST 07/23/2025 10:24 AM EST us Generic External Data Provider LAB BLOOD ORDERAB LES Final Result Performing Organization Address City/State/[facility] Co de Phone Number [facility] [address] [place] [phone] * CT Abdomen Pelvis w/ Contrast (07/21/2025 3:52 PM EST) Anatomical Region Laterality Modality Body, Pelvis, Abdomen Computed T omography 07/21/2025 3:52 PM EST Narrative 07/21/2025 3:53 PM EST [address] [address] [address] Scan Report Signed Patient: Herrera Trujillo MR#: [id number] : 1995 Acct:[id number] Age/Sex: 30 / M ADM Date: 07/21/25 Loc: HO.ED Attending Dr: Ordering Physician: Lyssa Delgado MD Date of Service: 07/21/25 Procedure(s): CT abdomen pelvis w IV con Accession Number(s): [id number] cc: [facility]; Lyssa Delgado MD Report Number: [id number]: Total DLP = 605.00 mGy-cm Reason for [...] tissues in the left inguinal region (4; 614-424). This has nonspecific although could suggest slight [...] Smith MD in OV> 07/21/25 1553 DD/ 155 TD/TT: 07/21/251551 Lens M[employer] Equipment Operator: Procedure Note Donotuseinterpreter, Image - 07/21/[address] [place] [address] [address] Scan Report Signed Patient: Kimberlyn Trujillo#: [id number] : 1995Acct:[id number] Age/Sex: 30 / MADM Date: 07/21/25 Loc: HO.ED Attending Dr: Ordering Physician: Lyssa Delgado MD Date of Service: 07/21/25 Procedure(s): CT abdomen pelvis w IV con Accession Number(s): [id number] cc: [facility]; Lyssa Delgado MD Report Number: [id number]: Total DLP = 605.00 mGy-cm Reason for [...] tissues in the left inguinal region (4; 294-873). This has nonspecific although could suggest slight [...] by Melvin Smith MD in OV> 07/21/25 155 DD/ 51 TD/TT: 07/21/251551 Lens Molding Equipment Operator: [facility] External Provider IMG CT PROCEDURES Final Result * (ABNORMAL) Comprehensive Metabolic Panel (07/21/2025 12:33 PM EST) Sodium 140 135 - 145 mmol/L [facility] Potassium 3.7 3.3 - 5.1 mmol/L [facility] Chloride 109(H) 96 - 108 mmol/L [facility] Carbon Dioxide 21(L) 22 - 29 mmol/L [facility] Anion Gap 14 12 - 20 [facility] Urea Nitrogen (BUN) 8(L) 9 - 16 mg/dL [facility] Creatinine, Serum 0.84 0.5 - 1.4 mg/dL [facility] Creatinine Clr Calc Pharmacy 143.9 [facility] Comment:eGFR (calculated fro m the MDRD study equation) and eCrCl(calculated from the Cockcroft-Gault equation) are based ondifferent parameters and may not yield comparable results.If eCrCl result is absurd, please check patient'sheight/weight. Estimated Glomerular Filt Rate >60 [facility] Comment:Chronic Kidney Disea se: Estimated GFR < 60 mL/min/1.84w0Bnklpn Kidney Disease: Estimated GFR < 15 mL/min/1.73m2 Glucose 114 60 - 115 mg/dL [facility] Calcium 9.0 8.4 - 10.2 mg/dL [facility] Bilirubin, Total 1.1(H) 0.0 - 1.0 mg/dL [facility] Aspartate Amino Transferase 20 5 - 37 U/L [facility] Alanine Aminotransferase 11 0 - 40 U/L [facility] Total Protein 7.3 6.5 - 8.0 g/dL [facility] Albumin Level 4.3 3.5 - 5.0 g/dL [facility] Alkaline Phosphatase 80 39 - 117 U/L [facility] 07/21/2025 12:3 3 PM EST 07/21/2025 12:35 PM EST Generic External Data Provider LAB BLOOD ORDERAB LES Final Result Performing Organization Address [facility] Co de Phone Number [facility] [address] [place] [phone] * Influenza A B2 ID NOW ([facility]) (07/21/2025 11:40 AM EST) IDNOW SERIAL# [id number] [facility] Influenza A Negative Negative [facility] Influenza B2 Negative Negative [facility] Influenza A B2 Note See Note [facility] Comment:The [place]arte ID NOW In fluenza [...] GENERAL ORDERABLES Final Result Performing Organization Address [facility] Co de Phone Number [facility] [address] [place] [phone] * COVID-19 ID NOW ([place]) (07/21/2025 11:40 AM EST) IDNOW SERIAL# [id number] [facility] COVID-19 TEST Negative Negative [facility] COVID-19 NOTE See Note [facility] Comment: Results are for the identification of SARS-CoV2 RNA. TheSARS-CoV2 RNA is generally detectable in respiratory samplesduring the acute phase of infection. Positive results areindicative of the presence of SARS-CoV-2 RNA; clinicalcorrelation with patient history and other diagnosticinformation is necessary to determine patient infectionstatus. Positive results do not rule out bacterial infectionor co- infection with other viruses.Testing facilities within the [facility] and [facility] are required to report all positive results [...] use by authorized laboratories.Testing performed on the [place] ID NOW utilizing NAAT. 07/21/2025 11:4 0 AM EST 07/21/2025 11:57 AM EST us Generic External Data Provider LAB MOLECULAR ALEJANDRO GNOSTICS ORDERABLES Final Result [facility] [address] [place] [phone] * Hepatitis C Antibody with Reflex to HCV, RNA, Quantitative, Real-Time PCR (06/09/2024 8:56 AM EDT) Hepatitis C Antibody Nonreactive Nonreactive [facility] Comment:Antibodies to HCV no t detected; does not exclude early acuteHCV infection. Blood Venous blood specimen / Unknown 06/09/2024 8:56 AM EDT 06/09/2024 11:22 AM EDT us Linnette Oneill NP LAB BLOOD ORDERABLES Final Resul t Performing Organization Address [facility]/ZIP Co de Phone Number [facility] [address] [place] [address] [phone] * HIV-1/2 Antigen and Antibodies, Fourth Generation, with Reflexes (06/09/2024 8:56 AM EDT) [facility] HIV AB/AG Nonreactive Nonreactive [facility] Comment:HIV-1 p24 Ag and/or HIV-1/HIV-2 Ab not detected.A test result that is nonreactive does not exclude thepossibility of exposure to or infection with HIV-1 and/orHIV-2. Nonreactive results in this assay for individualswith prior exposure to HIV-1 and/or HIV-2 may be due toantigen and antibody levels that are below the limit ofdetection of this assay.The [employer] HIV Ag/Ab Combo assay result andsupplemental assay results should be interpreted inconjunction with the patient's clinical presentation,history and other laboratory results. If the results areinconsistent with clinical evidence, additional testing issuggested to confirm the result. Blood Venous blood specimen / Unknown 06/09/2024 8:56 AM EDT 06/09/2024 11:22 AM EDT us Linnette Oneill NP LAB BLOOD ORDERABLES Final Resul t Performing Organization Address City/[facility]/ZIP Co de Phone Number [facility] [address] [place] [address] [phone] from Last 3 Months or Most Recently Relevant to Health Maintenance Insurance [facility] C3 HSN FULL Care Teams Underwriter Relationship Specialty Start Date End Date Linnette Oneill NP [address] [place] [phone] PCP - General Family Medicine 05/29/24
--- OUTSIDE RECORDS SUMMARY | 2025-07-23 12:09 | XMS_ITS | Encounter Summary ---
Author Organization [employer] Address [address] [facility] 7t [place] [address] Care Team Providers Care Second Facing Baster Name Role Phone Linnette Oneill CORE MAKER HELPER Primary Care Provider [phone] Reason for Visit * Reason Onset Date Comments Nurse Triage 11/08/2024 Encounter Details Date Type Department Care Team ([facility] st Contact Info) Description 11/08/2024 Telephone [facility] [address] [place], [place] [phone] Linnette Oneill NP [address] [place], [place] [phone] Nurse Triage Social History Tobacco Use Types [...] Pt has had this drained before at [facility] and has been told to contact PCP for referral for surgical removal. Pt reports the cyst is size of a golf ball, hard to the touch and painful. Last time this was drained was before May of 2024. ASK apt with [facility] at 1145am 11/10/24. Pt agrees with [...] bend over. The caller accepted this outcome. [phone] documented in this encounter Plan of Treatment Not on file documented as of this encounter Visit Diagnoses Not on filedocumented in this encounter Additional Health Concerns Assessment Noted Time PHQ-9 Depression Total Score: 4 05/29/20 24 10:05 AM EDT documented as of this encounter Care Teams Second Facing Baster Relationship Specialty Start Date End Date Linnette Oenill NP [address] [place] [address] PCP - General Family Medicine 05/29/24 documented as of this encounter
--- OUTSIDE RECORDS SUMMARY | 2025-07-23 12:09 | XMS_ITS | Clinical Summary ---
Author Organization [employer] [facility] ity Address [address] [place] [address] Care Team Providers Care Dehorner Name Role Phone Unavailable Primary Care Provider [...]
--- OUTSIDE RECORDS SUMMARY | 2025-07-23 12:09 | XMS_ITS | Encounter Summary ---
Author Organization [employer] Address [address] [facility] 7t [place] [address] Care Team Providers Care Impregnating Machine Operator Name Role Phone SorayaLinnette sherman AMMON Primary Care Provider [phone] Encounter Details Date Type Department Care Team (Late st Contact Info) Description 07/23/2025 Orders Only GENERIC EXTERNAL DATA [...] t he electric, gas, oil or water [employer] threatened to shut off services in your [...] Procedure Name Priority Date/Time Associated Diagnosis Comments CBC WITH AUTO DIFFERENTIAL Routine 07/23/2025 10:21 AM EST BASIC METABOLIC PANEL Routine 07/23/2025 10:21 AM EST documented in this encounter Results * (ABNORMAL) Basic Metabolic Panel (07/23/2025 10:21 AM EST) Sodium 140 135 - 145 mmol/L [facility] Potassium 3.3 3.3 - 5.1 mmol/L [facility] Chloride 107 96 - 108 mmol/L [facility] Carbon Dioxide 22 22 - 29 mmol/L [facility] Anion Gap 14 12 - 20 [facility] Urea Nitrogen (BUN) 7(L) 9 - 16 mg/dL [facility] Creatinine, Serum 0.71 0.5 - 1.4 mg/dL [facility] Creatinine Clr Calc Pharmacy 169.7 [facility] Comment:eGFR (calculated fro m the MDRD study equation) and eCrCl(calculated from the Cockcroft-Gault equation) are based ondifferent parameters and may not yield comparable results.If eCrCl result is absurd, please check patient'sheight/weight. Estimated Glomerular Filt Rate >60 [facility] Comment:Chronic Kidney Disea se: Estimated GFR < 60 mL/min/1.69x0Jovihr Kidney Disease: Estimated GFR < 15 mL/min/1.73m2 Glucose 114 60 - 115 mg/dL [facility] Calcium 9.3 8.4 - 10.2 mg/dL [facility] 07/23/2025 10:2 1 AM EST 07/23/2025 10:24 AM EST us Generic External Data Provider LAB BLOOD ORDERAB LES Final Result [facility] [address] [place] [address] [phone] * (ABNORMAL) CBC auto differential (07/23/2025 10:21 AM EST) White Blood Count 12.3(H) 4.8 - 10.8 X10*3/uL [facility] Red Blood Count 4.79 4.60 - 5.80 X10*6/uL [facility] Hemoglobin 13.7(L) 14.0 - 18.0 g/dl [facility] Hematocrit 40.7(L) 42.0 - 52.0 % [facility] Mean Corpuscular Volume 85.0 80.0 - 98.0 fL [facility] Mean Corpuscular Hemoglobin 28.6 27.0 - 33.0 pg [facility] Mean Corpuscular HGB Conc 33.7 31.0 - 36.0 g/dl [facility] Red Cell Distribution Width 12.8 11.0 - 16.0 % [facility] Platelet Count 271 160 - 400 X10*3/uL [facility] Mean Platelet Volume 10.3 9.4 - 12.4 fL [facility] Neutrophils Percent Auto 77.0(H) 45 - 73 % [facility] Imm Gran Pct Auto 0.4 0.0 - 0.4 % [facility] Lymphocytes Percent Auto 16.1(L) 20 - 40 % [facility] Monocytes Percent Auto 6.1 2 - 11 % [facility] Eosinophils Percent Auto 0.2 0 - 4 % [facility] Basophils Percent Auto 0.2 0 - 2 % [facility] NRBC Pct Auto 0.0 0.0 - 0.2 /100WBC [facility] Neutrophils Absolute Auto 9.5(H) 2.0 - 8.3 x10*3/uL [facility] Imm Gran Abs Auto 0.05(H) 0.00 - 0.03 X10*3/uL [facility] Lymphocytes Absolute Auto 2.0 1.2 - 4.9 X10*3/uL [facility] Monocytes Absolute Auto 0.8 0.1 - 1.2 X10*3/uL [facility] Eosinophils Absolute Auto 0.0 0.0 - 0.4 X10*3/uL [facility] Basophils Absolute Auto 0.0 0.0 - 0.2 X10*3/uL [facility] NRBC Abs Auto 0.000 0.0 - 0.012 X10*3/uL [facility] 07/23/2025 10:2 1 AM EST 07/23/2025 10:24 AM EST us Generic External Data Provider LAB BLOOD ORDERAB LES Final Result [facility] [address] [place] [address] [phone] documented in this encounter Visit Diagnoses Not on filedocumented in this encounter Additional Health Concerns Assessment Noted Time PHQ-9 Depression Total Score: 4 05/29/20 24 10:05 AM EDT documented as of this encounter Care Teams Impregnating Machine Operator Relationship Specialty Start Date End Date Linnette [place]ill NP [address] [place] [phone] PCP - General Family Medicine 05/29/24 documented as of this encounter
[2025-07-23 13:29] VITALS: BP 124/70; PULSE 44; TEMP 36.9; O2SAT 100
[2025-07-23 14:09] VITALS: BP 124/70; PULSE 44; RESP 18; TEMP 36.9; O2SAT 100
== END 2025-07-23 14:09 | disposition home or self-care (01) ==
PROVIDERS: Emergency Provider Emergency Medicine
DX: R11.2 Nausea with vomiting, unspecified (principal); R19.7 Diarrhea, unspecified
CPT/HCPCS: 36415; 80048; 85025; 96361; 96374; 96375; 99284; 99285; J1200; J1308; J2765

== ENCOUNTER 2025-07-24 04:02 | Emergency (ER) | payer MEDICAID, SELFPAY ==
[2025-07-24 04:07] VITALS: BP 144/79; PULSE 53; RESP 20; TEMP 37.6; O2SAT 100; BMI 30.3
--- NOTE | 2025-07-24 04:27 | ECG_ITS ---
Test Reason : N/V, BRADYCARDIA Blood Pressure : */* mmHG Vent. Rate : 51 BPM Atrial Rate : 51 BPM P-R Int : 140 ms QRS Dur : 94 ms QT Int : 384 ms P-R-T Axes : 67 3 39 degrees QTcB Int : 353 ms Sinus bradycardia Otherwise normal ECG When compared with ECG of 21-Jul-2025 10:42, No significant change was found Referred By: Usha Thomas Electronically Signed By: LASHA ABEBE MD
--- OUTSIDE RECORDS SUMMARY | 2025-07-24 04:31 | XMS_ITS | Encounter Summary ---
Author Organization [employer] Address [address] [facility] 7[address] [place] [address] Care Team Providers Care Pilot Highway Patrol Name Role Phone Linnette Oneill CHIEF OF HOSPITAL MEDICINE Primary Care Provider [phone] Reason for Visit * Reason Onset Date Comments Nurse Triage 11/08/2024 Encounter Details Date Type Department Care Team ([facility] st Contact Info) Description 11/08/2024 Telephone [facility] [address] [place], [place] [phone] Linnette Oneill NP [address] [place], [place] [phone] Nurse Triage Social History Tobacco Use Types [...] Pt has had this drained before at [facility] and has been told to contact PCP for referral for surgical removal. Pt reports the cyst is size of a golf ball, hard to the touch and painful. Last time this was drained was before May of 2024. ASK apt with [facility] at 1145am 11/10/24. Pt agrees with [...] bend over. The caller accepted this outcome. [phone] documented in this encounter Plan of Treatment Not on file documented as of this encounter Visit Diagnoses Not on filedocumented in this encounter Additional Health Concerns Assessment Noted Time PHQ-9 Depression Total Score: 4 05/29/20 24 10:05 AM EDT documented as of this encounter Care Teams Pilot Highway Patrol Relationship Specialty Start Date End Date Linnette Oneill NP [address] [place] [address] PCP - General Family Medicine 05/29/24 documented as of this encounter
--- OUTSIDE RECORDS SUMMARY | 2025-07-24 04:31 | XMS_ITS | Encounter Summary ---
Author Organization [employer] Address [address] [facility] [address] [place] [address] Care Team Providers Care Promotions Executive Name Role Phone MaiLinnette AMMON Primary Care Provider [phone] Encounter Details Date Type Department Care Team [...] t he electric, gas, oil or water riskmethods threatened to shut off services in your [...] PM EST INFLUENZA A B2 ID NOW (HASH) Routine 07/21/2025 11:40 AM EST COVID-19 ID NOW (HASH) Routine 07/21/2025 11:40 AM EST documented in this encounter Results * CT Abdomen Pelvis w/ Contrast (07/21/2025 3:52 PM EST) Anatomical Region Laterality Modality Body, Pelvis, Abdomen Computed T omography 07/21/2025 3:52 PM EST Narrative 07/21/2025 3:53 PM EST [place] [address] CT Scan Report Signed Patient: Herrera Trujillo MR#: [id number] : 1995 Acct:[id number] Age/Sex: 30 / M ADM Date: 07/21/25 Loc: HO.ED Attending Dr: Ordering Physician: Lyssa Delgado MD Date of Service: 07/21/25 Procedure(s): CT abdomen pelvis w IV con Accession Number(s): [id number] cc: [facility]; Lyssa Delgado MD Report Number: [id number]: Total DLP = 605.00 mGy-cm Reason for [...] 07/21/25 1553 DD/ 1552 TD/TT: 07/21/25 1552 Gas Engine Mechanic: Procedure Note Donotuseinterpreter, Image - 07/21/[address] [address] [address] Scan Report Signed Patient: Herrera TrujilloMR#: [id number] : 1995Acct:[id number] Age/Sex: 30 / MADM Date: 07/21/25 Loc: HO.ED Attending Dr: Ordering Physician: Lyssa Delgado MD Date of Service: 07/21/25 Procedure(s): CT abdomen pelvis w IV con Accession Number(s): [id number] cc: [facility]; Lyssa Delgado MD Report Number: [id number]: Total DLP = 605.00 mGy-cm Reason for [...] 07/21/25 1553 DD/ 1552 TD/TT: 07/21/25 1552 Gas Engine Mechanic: [facility] External Provider IMG CT PROCEDURES Final Result * (ABNORMAL) CBC auto differential (07/21/2025 1:43 PM EST) White Blood Count 15.0(H) 4.8 - 10.8 X10*3/uL [facility] Red Blood Count 4.82 4.60 - 5.80 X10*6/uL [facility] Hemoglobin 13.7(L) 14.0 - 18.0 g/dl [facility] Hematocrit 41.5(L) 42.0 - 52.0 % [facility] Mean Corpuscular Volume 86.1 80.0 - 98.0 fL [facility] Mean Corpuscular Hemoglobin 28.4 27.0 - 33.0 pg [facility] Mean Corpuscular HGB Conc 33.0 31.0 - 36.0 g/dl [facility] Red Cell Distribution Width 13.0 11.0 - 16.0 % [facility] Platelet Count 276 160 - 400 X10*3/uL [facility] Mean Platelet Volume 10.7 9.4 - 12.4 fL [facility] Neutrophils Percent Auto 79.7(H) 45 - 73 % [facility] Imm Gran Pct Auto 0.5(H) 0.0 - 0.4 % [facility] Lymphocytes Percent Auto 11.7(L) 20 - 40 % [facility] Monocytes Percent Auto 4.4 2 - 11 % [facility] Eosinophils Percent Auto 3.4 0 - 4 % [facility] Basophils Percent Auto 0.3 0 - 2 % [facility] NRBC Pct Auto 0.0 0.0 - 0.2 /100WBC [facility] Neutrophils Absolute Auto 12.0(H) 2.0 - 8.3 x10*3/uL [facility] Imm Gran Abs Auto 0.08(H) 0.00 - 0.03 X10*3/uL [facility] Lymphocytes Absolute Auto 1.8 1.2 - 4.9 X10*3/uL [facility] Monocytes Absolute Auto 0.7 0.1 - 1.2 X10*3/uL [facility] Eosinophils Absolute Auto 0.5(H) 0.0 - 0.4 X10*3/uL [facility] Basophils Absolute Auto 0.1 0.0 - 0.2 X10*3/uL [facility] NRBC Abs Auto 0.000 0.0 - 0.012 X10*3/uL [facility] 07/21/2025 1:43 PM EST 07/21/2025 2:00 PM EST Narrative [facility] - 07/21/2025 2:04 PM EST SPECIMEN CLOTTED us Generic External Data Provider LAB BLOOD ORDERAB LES Edited Result - Final [facility] [address] [place] [address] [phone] * (ABNORMAL) Comprehensive Metabolic Panel (07/21/2025 12:33 PM EST) Sodium 140 135 - 145 mmol/L [facility] Potassium 3.7 3.3 - 5.1 mmol/L [facility] Chloride 109(H) 96 - 108 mmol/L [facility] Carbon Dioxide 21(L) 22 - 29 mmol/L [facility] Anion Gap 14 12 - 20 [facility] Urea Nitrogen (BUN) 8(L) 9 - 16 mg/dL [facility] Creatinine, Serum 0.84 0.5 - 1.4 mg/dL [facility] Creatinine Clr Calc Pharmacy 143.9 [facility] Comment:eGFR (calculated fro m the MDRD study equation) and eCrCl(calculated from the Cockcroft-Gault equation) are based ondifferent parameters and may not yield comparable results.If eCrCl result is absurd, please check patient'sheight/weight. Estimated Glomerular Filt Rate >60 [facility] Comment:Chronic Kidney Disea se: Estimated GFR < 60 mL/min/[id number] Kidney Disease: Estimated GFR < 15 mL/min/1.73m2 Glucose 114 60 - 115 mg/dL [facility] Calcium 9.0 8.4 - 10.2 mg/dL [facility] Bilirubin, Total 1.1(H) 0.0 - 1.0 mg/dL [facility] Aspartate Amino Transferase 20 5 - 37 U/L [facility] Alanine Aminotransferase 11 0 - 40 U/L [facility] Total Protein 7.3 6.5 - 8.0 g/dL [facility] Albumin Level 4.3 3.5 - 5.0 g/dL [facility] Alkaline Phosphatase 80 39 - 117 U/L [facility] 07/21/2025 12:3 3 PM EST 07/21/2025 12:35 PM EST Generic External Data Provider LAB BLOOD ORDERAB LES Final Result Performing Organization Address [facility] Co de Phone Number [facility] [address] [place] [phone] * Influenza A B2 ID NOW (Rodarte) (07/21/2025 11:40 AM EST) IDNOW SERIAL# [id number] [facility] Influenza A Negative Negative [facility] Influenza B2 Negative Negative [facility] Influenza A B2 Note See Note [facility] Comment:The Rodarte ID NOW In [...] GENERAL ORDERABLES Final Result Performing Organization Address [facility] Co de Phone Number [facility] [address] [place] [phone] * COVID-19 ID NOW (RODARTE) (07/21/2025 11:40 AM EST) IDNOW SERIAL# [id number] [facility] COVID-19 TEST Negative Negative [facility] COVID-19 NOTE See Note [facility] Comment: Results are for the identification of SARS-CoV2 RNA. TheSARS-CoV2 RNA is generally detectable in respiratory samplesduring the acute phase of infection. Positive results areindicative of the presence of SARS-CoV-2 RNA; clinicalcorrelation with patient history and other diagnosticinformation is necessary to determine patient infectionstatus. Positive results do not rule out bacterial infectionor co- infection with other viruses.Testing facilities within the [place] and [facility] are required to report all positive results [...] use by authorized laboratories.Testing performed on the Nuji ID NOW utilizing NAAT. 07/21/2025 11:4 0 AM EST 07/21/2025 11:57 AM EST us Generic External Data Provider LAB MOLECULAR ALEJANDRO GNOSTICS ORDERABLES Final Result [facility] [address] [place] [phone] documented in this encounter Visit Diagnoses Not on filedocumented in this encounter Additional Health Concerns Assessment Noted Time PHQ-9 Depression Total Score: 4 05/29/20 24 10:05 AM EDT documented as of this encounter Care Teams Promotions Executive Relationship Specialty Start Date End Date Linnette Oneill NP [address] [place] [address] PCP - General Family Medicine 05/29/24 documented as of this encounter
--- OUTSIDE RECORDS SUMMARY | 2025-07-24 04:31 | XMS_ITS | Clinical Summary ---
Author Organization [employer] [facility] ity Address [address] [place] [address] Care Team Providers Care Dredge Operator Supervisor Name Role Phone Unavailable Primary Care Provider [...]
--- OUTSIDE RECORDS SUMMARY | 2025-07-24 04:31 | XMS_ITS | Clinical Summary ---
Author Organization [employer] [facility] Address [address] [facility] 7t [place] [address] Care Team Providers Care Mulling Machine Operator Name Role Phone Linnette Oneill SNAKER TRACTOR DRIVER Primary Care Provider [phone] Allergies No known active allergies Medications No [...] Provider, Generic External Data 06/07/2025 Patient Outreach [facility] [address] [place] [address] Linnette Oneill NP Care Coordination (CM/CHW outreach) [...] 07/21/2025 12:33 PM EST COVID-19 ID NOW (ShapeUp) Routine 07/21/2025 11:40 AM EST INFLUENZA A [...] Blood Count 12.3(H) 4.8 - 10.8 X10*3/uL [facility] Red Blood Count 4.79 4.60 - 5.80 X10*6/uL [facility] Hemoglobin 13.7(L) 14.0 - 18.0 g/dl [facility] Hematocrit 40.7(L) 42.0 - 52.0 % [facility] Mean Corpuscular Volume 85.0 80.0 - 98.0 fL [facility] Mean Corpuscular Hemoglobin 28.6 27.0 - 33.0 pg [facility] Mean Corpuscular HGB Conc 33.7 31.0 - 36.0 g/dl [facility] Red Cell Distribution Width 12.8 11.0 - 16.0 % [facility] Platelet Count 271 160 - 400 X10*3/uL [facility] Mean Platelet Volume 10.3 9.4 - 12.4 fL [facility] Neutrophils Percent Auto 77.0(H) 45 - 73 % [facility] Imm Gran Pct Auto 0.4 0.0 - 0.4 % [facility] Lymphocytes Percent Auto 16.1(L) 20 - 40 % [facility] Monocytes Percent Auto 6.1 2 - 11 % [facility] Eosinophils Percent Auto 0.2 0 - 4 % [facility] Basophils Percent Auto 0.2 0 - 2 % [facility] NRBC Pct Auto 0.0 0.0 - 0.2 /100WBC [facility] Neutrophils Absolute Auto 9.5(H) 2.0 - 8.3 x10*3/uL [facility] Imm Gran Abs Auto 0.05(H) 0.00 - 0.03 X10*3/uL [facility] Lymphocytes Absolute Auto 2.0 1.2 - 4.9 X10*3/uL [facility] Monocytes Absolute Auto 0.8 0.1 - 1.2 X10*3/uL [facility] Eosinophils Absolute Auto 0.0 0.0 - 0.4 X10*3/uL [facility] Basophils Absolute Auto 0.0 0.0 - 0.2 X10*3/uL [facility] NRBC Abs Auto 0.000 0.0 - 0.012 X10*3/uL [facility] 07/23/2025 10:2 1 AM EST 07/23/2025 10:24 AM EST us Generic External Data Provider LAB BLOOD ORDERAB LES Final Result [facility] [address] [place] [phone] * (ABNORMAL) Basic Metabolic Panel (07/23/2025 10:21 AM EST) Sodium 140 135 - 145 mmol/L [facility] Potassium 3.3 3.3 - 5.1 mmol/L [facility] Chloride 107 96 - 108 mmol/L [facility] Carbon Dioxide 22 22 - 29 mmol/L [facility] Anion Gap 14 12 - 20 [facility] Urea Nitrogen (BUN) 7(L) 9 - 16 mg/dL [facility] Creatinine, Serum 0.71 0.5 - 1.4 mg/dL [facility] Creatinine Clr Calc Pharmacy 169.7 [facility] Comment:eGFR (calculated fro m the MDRD study equation) and eCrCl(calculated from the Cockcroft-Gault equation) are based ondifferent parameters and may not yield comparable results.If eCrCl result is absurd, please check patient'sheight/weight. Estimated Glomerular Filt Rate >60 [facility] Comment:Chronic Kidney Disea se: Estimated GFR < 60 mL/min/1.99r4Bptmwh Kidney Disease: Estimated GFR < 15 mL/min/1.73m2 Glucose 114 60 - 115 mg/dL [facility] Calcium 9.3 8.4 - 10.2 mg/dL [facility] 07/23/2025 10:2 1 AM EST 07/23/2025 10:24 AM EST us Generic External Data Provider LAB BLOOD ORDERAB LES Final Result Performing Organization Address City/State/[facility] Co de Phone Number [facility] [address] [place] [phone] * CT Abdomen Pelvis w/ Contrast (07/21/2025 3:52 PM EST) Anatomical Region Laterality Modality Body, Pelvis, Abdomen Computed T omography 07/21/2025 3:52 PM EST Narrative 07/21/2025 3:53 PM EST [address] [address] [address] Scan Report Signed Patient: Herrera Trujillo MR#: [id number] : 1995 Acct:[id number] Age/Sex: 30 / M ADM Date: 07/21/25 Loc: HO.ED Attending Dr: Ordering Physician: Lyssa Delgado MD Date of Service: 07/21/25 Procedure(s): CT abdomen pelvis w IV con Accession Number(s): [id number] cc: [facility]; Lyssa Delgaod MD Report Number: [id number]: Total DLP = 605.00 mGy-cm Reason for [...] tissues in the left inguinal region (4; 614-635). This has nonspecific although could suggest slight [...] OV> 07/21/25 1553 DD/ 155 TD/TT: 07/21/251551 Fire Hose Curer: Procedure Note Donotuseinterpreter, Image - 07/21/[address] [place] [address] [address] Scan Report Signed Patient: Kimberlyn Trujillo#: [id number] : 1995Acct:[id number] Age/Sex: 30 / MADM Date: 07/21/25 Loc: HO.ED Attending Dr: Ordering Physician: Lyssa Delgado MD Date of Service: 07/21/25 Procedure(s): CT abdomen pelvis w IV con Accession Number(s): [id number] cc: [facility]; Lyssa Delgado MD Report Number: [id number]: Total DLP = 605.00 mGy-cm Reason for [...] tissues in the left inguinal region (4; 594-256). This has nonspecific although could suggest slight [...] OV> 07/21/25 155 DD/ 51 TD/TT: 07/21/251551 Fire Hose Curer: [facility] External Provider IMG CT PROCEDURES Final Result * (ABNORMAL) Comprehensive Metabolic Panel (07/21/2025 12:33 PM EST) Sodium 140 135 - 145 mmol/L [facility] Potassium 3.7 3.3 - 5.1 mmol/L [facility] Chloride 109(H) 96 - 108 mmol/L [facility] Carbon Dioxide 21(L) 22 - 29 mmol/L [facility] Anion Gap 14 12 - 20 [facility] Urea Nitrogen (BUN) 8(L) 9 - 16 mg/dL [facility] Creatinine, Serum 0.84 0.5 - 1.4 mg/dL [facility] Creatinine Clr Calc Pharmacy 143.9 [facility] Comment:eGFR (calculated fro m the MDRD study equation) and eCrCl(calculated from the Cockcroft-Gault equation) are based ondifferent parameters and may not yield comparable results.If eCrCl result is absurd, please check patient'sheight/weight. Estimated Glomerular Filt Rate >60 [facility] Comment:Chronic Kidney Disea se: Estimated GFR < 60 mL/min/1.20f9Eoagff Kidney Disease: Estimated GFR < 15 mL/min/1.73m2 Glucose 114 60 - 115 mg/dL [facility] Calcium 9.0 8.4 - 10.2 mg/dL [facility] Bilirubin, Total 1.1(H) 0.0 - 1.0 mg/dL [facility] Aspartate Amino Transferase 20 5 - 37 U/L [facility] Alanine Aminotransferase 11 0 - 40 U/L [facility] Total Protein 7.3 6.5 - 8.0 g/dL [facility] Albumin Level 4.3 3.5 - 5.0 g/dL [facility] Alkaline Phosphatase 80 39 - 117 U/L [facility] 07/21/2025 12:3 3 PM EST 07/21/2025 12:35 PM EST Generic External Data Provider LAB BLOOD ORDERAB LES Final Result Performing Organization Address [facility] Co de Phone Number [facility] [address] [place] [phone] * Influenza A B2 ID NOW (Rodarte) (07/21/2025 11:40 AM EST) IDNOW SERIAL# [id number] [facility] Influenza A Negative Negative [facility] Influenza B2 Negative Negative [facility] Influenza A B2 Note See Note [facility] Comment:The Rodarte ID NOW In [...] GENERAL ORDERABLES Final Result Performing Organization Address [facility] Co de Phone Number [facility] [address] [place] [phone] * COVID-19 ID NOW (RODARTE) (07/21/2025 11:40 AM EST) IDNOW SERIAL# [id number] [facility] COVID-19 TEST Negative Negative [facility] COVID-19 NOTE See Note [facility] Comment: Results are for the identification of SARS-CoV2 RNA. TheSARS-CoV2 RNA is generally detectable in respiratory samplesduring the acute phase of infection. Positive results areindicative of the presence of SARS-CoV-2 RNA; clinicalcorrelation with patient history and other diagnosticinformation is necessary to determine patient infectionstatus. Positive results do not rule out bacterial infectionor co- infection with other viruses.Testing facilities within the [facility] and [facility] are required to report all positive results [...] LAB MOLECULAR ALEJANDRO GNOSTICS ORDERABLES Final Result [facility] [address] [place] [phone] * Hepatitis C Antibody with Reflex to HCV, RNA, Quantitative, Real-Time PCR (06/09/2024 8:56 AM EDT) Hepatitis C Antibody Nonreactive Nonreactive [facility] Comment:Antibodies to HCV no t detected; does not exclude early acuteHCV infection. Blood Venous blood specimen / Unknown 06/09/2024 8:56 AM EDT 06/09/2024 11:22 AM EDT us Linnette Oneill NP LAB BLOOD ORDERABLES Final Resul t Performing Organization Address [facility]/ZIP Co de Phone Number [facility] [address] [place] [phone] [phone] * HIV-1/2 Antigen and Antibodies, Fourth Generation, with Reflexes (06/09/2024 8:56 AM EDT) [facility] HIV AB/AG Nonreactive Nonreactive [facility] Comment:HIV-1 p24 Ag and/or HIV-1/HIV-2 Ab not detected.A test result that is nonreactive does not exclude thepossibility of exposure to or infection with HIV-1 and/orHIV-2. Nonreactive results in this assay for individualswith prior exposure to HIV-1 and/or HIV-2 may be due toantigen and antibody levels that are below the limit ofdetection of this assay.The K[employer]ThruniREBIScan HIV Ag/Ab Combo assay result andsupplemental assay results should be interpreted inconjunction with the patient's clinical presentation,history and other laboratory results. If the results areinconsistent with clinical evidence, additional testing issuggested to confirm the result. Blood Venous blood specimen / Unknown 06/09/2024 8:56 AM EDT 06/09/2024 11:22 AM EDT us Linnette Oneill NP LAB BLOOD ORDERABLES Final Resul t Performing Organization Address City/[facility]/ZIP Co de Phone Number [facility] [address] [place] [address] [phone] from Last 3 Months or Most Recently Relevant to Health Maintenance Insurance [facility] C3 HSN FULL Care Teams Mulling Machine Operator Relationship Specialty Start Date End Date Linnette Oneill NP [address] [place] [phone] PCP - General Family Medicine 05/29/24
--- OUTSIDE RECORDS SUMMARY | 2025-07-24 04:31 | XMS_ITS | Encounter Summary ---
Author Organization [employer] [facility] [employer] Address [address] [facility] [address] [place] [address] Care Team Providers Care Financial Institution Vice President Name Role Phone MaiLinnette AMMON Primary Care Provider [phone] Encounter Details Date Type Department Care Team [...] t he electric, gas, oil or water [employer] threatened to shut off services in your [...] EST) Sodium 140 135 - 145 mmol/L [facility] Potassium 3.3 3.3 - 5.1 mmol/L [facility] Chloride 107 96 - 108 mmol/L [facility] Carbon Dioxide 22 22 - 29 mmol/L [facility] Anion Gap 14 12 - 20 [facility] Urea Nitrogen (BUN) 7(L) 9 - 16 mg/dL [facility] Creatinine, Serum 0.71 0.5 - 1.4 mg/dL [facility] Creatinine Clr Calc Pharmacy 169.7 [facility] Comment:eGFR (calculated fro m the MDRD study equation) and eCrCl(calculated from the Cockcroft-Gault equation) are based ondifferent parameters and may not yield comparable results.If eCrCl result is absurd, please check patient'sheight/weight. Estimated Glomerular Filt Rate >60 [facility] Comment:Chronic Kidney Disea se: Estimated GFR < 60 mL/min/1.01k5Ldotvf Kidney Disease: Estimated GFR < 15 mL/min/1.73m2 Glucose 114 60 - 115 mg/dL [facility] Calcium 9.3 8.4 - 10.2 mg/dL [facility] 07/23/2025 10:2 1 AM EST 07/23/2025 10:24 AM EST us Generic External Data Provider LAB BLOOD ORDERAB LES Final Result [facility] [address] [place] [phone] * (ABNORMAL) CBC auto differential (07/23/2025 10:21 AM EST) White Blood Count 12.3(H) 4.8 - 10.8 X10*3/uL [facility] Red Blood Count 4.79 4.60 - 5.80 X10*6/uL [facility] Hemoglobin 13.7(L) 14.0 - 18.0 g/dl [facility] Hematocrit 40.7(L) 42.0 - 52.0 % [facility] Mean Corpuscular Volume 85.0 80.0 - 98.0 fL [facility] Mean Corpuscular Hemoglobin 28.6 27.0 - 33.0 pg [facility] Mean Corpuscular HGB Conc 33.7 31.0 - 36.0 g/dl [facility] Red Cell Distribution Width 12.8 11.0 - 16.0 % [facility] Platelet Count 271 160 - 400 X10*3/uL [facility] Mean Platelet Volume 10.3 9.4 - 12.4 fL [facility] Neutrophils Percent Auto 77.0(H) 45 - 73 % [facility] Imm Gran Pct Auto 0.4 0.0 - 0.4 % [facility] Lymphocytes Percent Auto 16.1(L) 20 - 40 % [facility] Monocytes Percent Auto 6.1 2 - 11 % [facility] Eosinophils Percent Auto 0.2 0 - 4 % [facility] Basophils Percent Auto 0.2 0 - 2 % [facility] NRBC Pct Auto 0.0 0.0 - 0.2 /100WBC [facility] Neutrophils Absolute Auto 9.5(H) 2.0 - 8.3 x10*3/uL [facility] Imm Gran Abs Auto 0.05(H) 0.00 - 0.03 X10*3/uL [facility] Lymphocytes Absolute Auto 2.0 1.2 - 4.9 X10*3/uL [facility] Monocytes Absolute Auto 0.8 0.1 - 1.2 X10*3/uL [facility] Eosinophils Absolute Auto 0.0 0.0 - 0.4 X10*3/uL [facility] Basophils Absolute Auto 0.0 0.0 - 0.2 X10*3/uL [facility] NRBC Abs Auto 0.000 0.0 - 0.012 X10*3/uL [facility] 07/23/2025 10:2 1 AM EST 07/23/2025 10:24 AM EST us Generic External Data Provider LAB BLOOD ORDERAB LES Final Result [facility] [address] [place] [address] [phone] documented in this encounter Visit Diagnoses Not on filedocumented in this encounter Additional Health Concerns Assessment Noted Time PHQ-9 Depression Total Score: 4 05/29/20 24 10:05 AM EDT documented as of this encounter Care Teams Financial Institution Vice President Relationship Specialty Start Date End Date Linnette Oneill NP [address] [place] [phone] PCP - General Family Medicine 05/29/24 documented as of this encounter
[2025-07-24 04:39] LABS: MANUAL DIFF FLAG NO
[2025-07-24 04:40] LABS: Hematocrit 39.5 % (42.0-52.0); Hemoglobin 13.2 g/dl (14.0-18.0); Imm Gran Abs Auto 0.09 X10*3/uL (0.00-0.03); Imm Gran Pct Auto 0.7 % (0.0-0.4); Lymphocytes Absolute Auto 2.1 X10*3/uL (1.2-4.9); Mean Corpuscular HGB Conc 33.4 g/dl (31.0-36.0); Mean Corpuscular Hemoglobin 28.4 pg (27.0-33.0); Mean Corpuscular Volume 85.1 fL (80.0-98.0); NRBC Abs Auto 0.000 X10*3/uL (0.0-0.012); NRBC Pct Auto 0.0 /100WBC (0.0-0.2); Platelet Count 243 X10*3/uL (160-400); Red Blood Count 4.64 X10*6/uL (4.60-5.80); White Blood Count 13.7 X10*3/uL (4.8-10.8)
[2025-07-24] MEDS: Lactated Ringers 1,000 ML 999 ML IV ×2 (04:52→05:32)
[2025-07-24 05:07] LABS: Alanine Aminotransferase 12 U/L (0-40); Albumin Level 4.1 g/dL (3.5-5.0); Alkaline Phosphatase 69 U/L (39-117); Anion Gap 13 (12-20); Aspartate Amino Transferase 21 U/L (5-37); Blood Urea Nitrogen 9 mg/dL (9-16); Calcium 8.6 mg/dL (8.4-10.2); Carbon Dioxide 23 mmol/L (22-29); Chloride 106 mmol/L (96-108); Creatinine Clr Calc Pharmacy 143.4; Estimated Glomerular Filt Rate > 60; Lipase 22 U/L (8-78); Potassium 2.9 mmol/L (3.3-5.1); Sodium 139 mmol/L (135-145); Total Protein 6.7 g/dL (6.5-8.0)
[2025-07-24] MEDS: Potassium Chloride ER 20 MEQ TAB.ER.PRT PO ×2 (05:28→07:39)
[2025-07-24 05:37] LABS: Magnesium 1.7 mg/dL (1.6-2.6)
[2025-07-24 05:50] LABS: Appearance Urine Clear; Glucose Urine UA Negative (Negative); PH 6.0 (5.0-9.0); Specific Gravity - Urine 1.010 (1.005-1.025); UMIC TRIGGER UACC YES
[2025-07-24] MEDS: Magnesium Sulfate/H2O 2 GM/50 ML PIGGYBACK IV (05:58)
[2025-07-24 05:59] LABS: Cannabinoid Screen Urine POSITIVE (Not Detect)
--- NOTE | 2025-07-24 06:18 | ED.NAVMDI ---
HPI - Nausea/Vomiting/Diarrhea General Chief complaint: Nausea/Vomiting/Diarrhea Stated complaint: n/v/d Time Seen by Provider: 07/24/25 04:27 Source: patient Mode of arrival: ambulatory Limitations: no limitations History of Present Illness ED Provider: Dr. Usha Thomas HPI Narrative: 30-year-old male with a history of cannabis use, frequent cyclical vomiting presenting with nausea and vomiting that is been ongoing for the last several days. Patient has been seen in this emergency department twice prior to today for this issue. Was prescribed medications for nausea and vomiting however, he was unable to fill them at the pharmacy. States that he went home and slept, having had stopped vomiting after his ER visit yesterday however, he woke up in the middle of the night around 2:00 a.m. today with worsening pain. Reported fever. No reported diarrhea, in fact he has not had a bowel movement since this all began. No known sick contacts or questionable food intake. Has been feeling well prior to this. Denies other illicit substance or alcohol use. Related Data Home Medications ?Medication ?Instructions ?Recorded ?Confirmed ibuprofen 600 mg tablet 600 mg PO Q6H PRN Headache 12/15/24 03/08/25 Previous Rx's ?Medication ?Instructions ?Recorded famotidine 20 mg tablet (Pepcid) 20 mg PO BID 4 weeks #56 tabs 07/23/25 metoclopramide HCl 5 mg tablet 10 mg (2 x 5 mg) PO Q6H PRN nausea 07/23/25 (Reglan) and vomiting #20 tabs ondansetron 4 mg disintegrating 4 mg PO Q8H PRN nausea and 07/24/25 tablet vomiting #10 tabs Allergies Allergy/AdvReac Type Severity Reaction Status Date / Time No Known Allergies Allergy Verified 07/24/25 04:09 Review of Systems Review of Systems: As per HPI, full review of systems performed and negative but for the above mentioned pertinent positives and negatives. PMFSH Past Medical History Medical History Fatty liver Appendix abscess Surgical History Hx of appendectomy No pertinent past surgical history Family History Family History Father Myocardial infarction Mother Hypertension Social History Social History Household Members: Family Housing: House Are you a primary manager primary care to a significant other at home: No Do you presently have visiting nurse or other home services: No Alcohol intake: never Patient Tobacco Use Status: Never used Tobacco Smoked in Last 30 Days: No Use of substances other than those prescribed or required for medical reasons: No Substance Use Type: Marijuana Advance Directives: No Advance Directives Information Provided: Yes service: No Physical Exam Exam: Exam: GENERAL: Ill-Appearing, appears uncomfortable. SKIN: Normal skin color for ethnicity, warm, dry, no rashes noted. HEENT: Normocephalic, atraumatic, no stridor, dry mucous membranes, dentition intact, EOMI, PERRLA. NECK: Soft, supple, full ROM, midline structures nontender, no step-offs, no deformities, no lymphadenopathy. CHEST: Heart regular bradycardia, no murmurs, symmetric chest rise and fall. PULMONARY: Clear to auscultation bilaterally, diminished at the bases, no labored breathing, no wheezes/rhales/rhonchi. ABDOMINAL: Soft, nondistended, nontender, positive bowel sounds in all quadrants. : Deferred. MUSCULOSKELETAL: Normal tone, full range of motion, no deformities, no peripheral edema. NEURO: Alert and oriented x3, CN II through XII intact, equal strength and sensation bilateral upper and lower extremities, no focal neurologic deficits. PSYCHIATRIC: Flat affect, fluid speech, good eye contact and appropriate demeanor. Vital Signs: Vital Signs: Last Vital Signs Temp 99.6 F 07/24/25 04:07 Pulse 53 07/24/25 04:07 Resp 20 07/24/25 04:07 BP 144/79 H 07/24/25 04:07 Pulse Ox 100 07/24/25 04:07 O2 Del Method Room Air 07/24/25 04:07 BMI result Body Mass Index 30.3 Medications Administered Generic Name Dose Route Start Last Admin Trade Name Freq PRN Reason Stop Dose Admin Magnesium Sulfate 2 gm in 50 mls @ 25 mls/hr 07/24/25 05:42 07/24/25 05:58 Magnesium Sulfate/H2o IV 07/24/25 07:41 25 mls/hr ONCE ONE Administration Discontinued Medications Generic Name Dose Route Start Last Admin Trade Name Alfreda PRN Reason Stop Dose Admin Diphenhydramine HCl 50 mg 07/24/25 04:31 07/24/25 04:43 Diphenhydramine Hcl 50 Mg/Ml Vial IVPUSH 07/24/25 04:32 50 mg ONCE ONE Administration Haloperidol Lactate 5 mg 07/24/25 04:31 07/24/25 04:43 Haloperidol Lactate 5 Mg/Ml Vial IVPUSH 07/24/25 04:32 5 mg STAT STA Administration Lactated Ringer's 1,000 mls @ 999 mls/hr 07/24/25 04:31 07/24/25 06:45 Lr IV 07/24/25 05:31 Infused .Q1H1M ONE Infusion Lactated Ringer's 1,000 mls @ 999 mls/hr 07/24/25 05:24 07/24/25 05:32 Lr IV 07/24/25 06:24 999 mls/hr .Q1H1M ONE Administration Potassium Chloride 20 meq 07/24/25 05:24 07/24/25 05:28 Potassium Chloride Er 20 Meq Tab.Er.Prt PO 07/24/25 05:25 20 meq ONCE ONE Administration Medical Decision Making Medical Decision Making MDM Narrative: Patient presents today with a chief complaint of vomiting. Differential diagnosis includes surgical emergency such as obstruction or enteritis, as well as hyperglycemia, acidosis, food or drug ingestion, pancreatitis, CVA, allergic reaction such as anaphylaxis, cannabis hyperemesis syndrome or cyclic vomiting syndrome, among many others. Patient is not showing signs of acute dehydration or hemodynamic instability. They are having associated abdominal pain. Broad-based work-up was initiated based on above history and physical exam. Patient again showing evidence of hypokalemia. He is also slightly bradycardic which may be related to his electrolyte imbalance. Magnesium is also slightly low. Both were repleted here in the emergency department along with fluid hydration and antiemetics. No further episodes of emesis here in the emergency department. Otherwise, his workup has been reassuring. Slight elevation in his white blood cell count, likely secondary to vomiting and demargination. He is afebrile, tolerating oral intake in the emergency department in stable for discharge. Discussed cessation of marijuana use. I encouraged outpatient follow up. Discharged home in stable condition. Differential Diagnosis Differential Diagnoses: The differential diagnosis associated with the presentation includes (As above) Admission/Observation Consideration of admission/observation: Escalation of care including admission/observation considered Lab Data MDM Lab Attestation statement: I reviewed the patient's lab results. 07/24/25 04:35 07/24/25 04:35 Labs: Lab Results 07/24/25 07/24/25 Range/Units 04:35 05:41 WBC 13.7 H (4.8-10.8) X10*3/uL RBC 4.64 (4.60-5.80) X10*6/uL Hgb 13.2 L (14.0-18.0) g/dl Hct 39.5 L (42.0-52.0) % MCV 85.1 (80.0-98.0) fL MCH 28.4 (27.0-33.0) pg MCHC 33.4 (31.0-36.0) g/dl RDW 12.8 (11.0-16.0) % Plt Count 243 (160-400) X10*3/uL MPV 9.9 (9.4-12.4) fL Immature Gran % (Auto) 0.7 H (0.0-0.4) % Neut % (Auto) 76.7 H (45-73) % Lymph % (Auto) 14.9 L (20-40) % [place] % (Auto) 6.4 (2-11) % Eos % (Auto) 1.1 (0-4) % Baso % (Auto) 0.2 (0-2) % Lymph # (Auto) 2.1 (1.2-4.9) X10*3/uL [place] # (Auto) 0.9 (0.1-1.2) X10*3/uL Eos # (Auto) 0.2 (0.0-0.4) X10*3/uL Baso # (Auto) 0.0 (0.0-0.2) X10*3/uL Abs Immat Gran (auto) 0.09 H (0.00-0.03) X10*3/uL Absolute Neuts (auto) 10.5 H (2.0-8.3) x10*3/uL Absolute Nucleated RBC 0.000 (0.0-0.012) X10*3/uL Nucleated RBC % (auto) 0.0 (0.0-0.2) /100WBC Sodium 139 (135-145) mmol/L Potassium 2.9 L* (3.3-5.1) mmol/L Chloride 106 (96-108) mmol/L Carbon Dioxide 23 (22-29) mmol/L Anion Gap 13 (12-20) BUN 9 (9-16) mg/dL Creatinine 0.84 (0.5-1.4) mg/dL Estim Creat Clear Calc 143.4 Estimated GFR > 60 Random Glucose 101 (60-115) mg/dL Calcium 8.6 D (8.4-10.2) mg/dL Magnesium 1.7 (1.6-2.6) mg/dL Total Bilirubin 1.2 H (0.0-1.0) mg/dL AST 21 (5-37) U/L ALT 12 (0-40) U/L Alkaline Phosphatase 69 (39-117) U/L C-Reactive Protein 0.10 (< or = 0.50) mg/dL Total Protein 6.7 (6.5-8.0) g/dL Albumin 4.1 (3.5-5.0) g/dL Lipase 22 (8-78) U/L Urine Color Yellow Urine Appearance Clear Urine pH 6.0 (5.0-9.0) Ur Specific [place] 1.010 (1.005-1.025) Urine Protein Negative (Neg-Trace) mg/dL Urine Glucose (UA) Negative (Negative) mg/dL Urine Ketones Negative (Negative) mg/dL Urine Blood Negative (Negative) Urine Nitrite Negative (Negative) Ur Leukocyte Esterase Trace H (Negative) Urine RBC 0-2 (0-2) /HPF Urine WBC 0-5 (0-5) /HPF Ur Squamous Epith Cells 0-2 (0-2) /HPF Urine Bacteria None Seen (None Seen) Hyaline Casts 0-2 (0-2) /LPF Urine Opiates Screen Not Detected (Not Detect) Ur Buprenorphine Scrn Not Detected (Not Detect) ng/mL Ur Oxycodone Screen Not Detected (Not Detect) ng/mL Urine Methadone Screen Not Detected (Not Detect) ng/mL Urine Fentanyl Screen Not Detected (Not Detect) Ur Barbiturates Screen Not Detected (Not Detect) Ur Phencyclidine Scrn Not Detected (Not Detect) Ur Amphetamines Screen Not Detected (Not Detect) U Benzodiazepines Scrn Not Detected (Not Detect) Urine Cocaine Screen Not Detected (Not Detect) U Marijuana (THC) Screen POSITIVE H (Not Detect) Independent Interpretation I performed an independent interpretation of an: EKG External Record Review External record reviewed: Inpatient record Prescription Management I considered prescription management with: Other (Antiemetic) Chronic Conditions Patient?s care impacted by: Other (Cannabis hyperemesis) Social Determinants Patient?s care significantly limited by Social Determinants of Health including: Other Social Determinant of Health Critical Care Time Critical Care Time Critical Care Time: Yes Total Critical Care Time: 35 Attestation: CRITICAL CARE TIME: 35 minutes of critical care time was spent in direct patient care at the bedside or in the immediate area with this patient. Critical care was necessary to treat or prevent imminent or life-threatening deterioration of the following conditions hypokalemia, hypomagnesemia, dehydration requiring IV fluids/electrolyte repletion due to cannabis hyperemesis. This patient is high risk for decompensation and/or . This time was spent assessing and managing the patient, interpreting labs and imaging, coordinating care with other medical providers, gathering history from either the patient, their representatives, EMS or chart review, and discussing management with patient. Discharge Plan Discharge Clinical Impression: Cannabis hyperemesis syndrome concurrent with and due to cannabis abuse, Acute hypokalemia, Hypomagnesemia, Acute dehydration Patient Disposition: Home, Self-Care Instructions: Hypokalemia (ED), Cyclic Vomiting Syndrome (ED) Additional Instructions: Try to avoid using cannabis in the future as I believe this is contributing to your vomiting. 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 Try to stay hydrated, drinking plenty of hydrating liquids such as sports drinks, hydration solutions such as liquid IV or Pedialyte, or just plain water. Return to the emergency department with any new or worsening symptoms including: Fevers greater than 100?, worsening abdominal pain despite medications, inability to tolerate food or drink, any new symptom that concerns you. Call 911 with any medical emergency. Prescriptions: New ondansetron 4 mg tablet,disintegrating 4 mg PO Q8H PRN (Reason: nausea and vomiting) Qty: 10 0RF No Action ibuprofen 600 mg Tablet 600 mg PO Q6H PRN (Reason: Headache) famotidine [Pepcid] 20 mg tablet 20 mg PO BID 28 Days Qty: 56 0RF metoclopramide HCl [Reglan] 5 mg tablet 10 mg PO Q6H PRN (Reason: nausea and vomiting) Qty: 20 0RF Print Language: Azeri
[2025-07-24 07:41] VITALS: BP 115/76; PULSE 55; RESP 16; TEMP 36.1; O2SAT 99
== END 2025-07-24 07:43 | disposition home or self-care (01) ==
PROVIDERS: Emergency Provider Emergency Medicine
DX: R11.16 Cannabis hyperemesis syndrome (principal); F12.19 Cannabis abuse with unspecified cannabis-induced disorder; E87.6 Hypokalemia; E83.42 Hypomagnesemia; E86.0 Dehydration; R11.2 Nausea with vomiting, unspecified; R19.7 Diarrhea, unspecified; R00.1 Bradycardia, unspecified
CPT/HCPCS: 36415; 80053; 80307; 81001; 83690; 83735; 85025; 86140; 93005; 96361; 96365; 96375; 99285; J1200; J1630; J3475; J7120

== ENCOUNTER → 2025-07-24 04:27 | Outpatient (BNV) | payer MEDICAID, SELFPAY | PROVIDERS: Emergency Provider Emergency Medicine; Visit Provider Internal Medicine Cardiovascular Disease | DX: R00.1 Bradycardia, unspecified (principal) | CPT/HCPCS: 93010 ==